=== PATIENT | female | born 1960 | race Caucasian/White ===

== ENCOUNTER 2019-04-29 10:04 | Emergency (ER) | payer MEDICARE, SELFPAY ==
[2019-04-29 10:05] VITALS: BP 123/69; PULSE 84; RESP 18; TEMP 37.7; O2SAT 98; BMI 29.0
--- NOTE | 2019-04-29 10:31 | ED.VISSUMM ---
- ER Visit Summary Date of Service: 04/29/19 Chief Complaint: Abscess History of Present Illness: The patient is a 58 F who presents with an abscess to her upper back that is been getting worse over the past 2 days. Patient describes the pain as throbbing and stabbing. Patient states pain is been constant. Patient states she had a pustule over that area and she accidentally scraped it which opened the wound. She states she has been able to drain some purulent drainage from the wound. Patient admits to increasing redness and swelling around the area. Patient admits to increasing pain over the area. Patient admits to a fever of 101 earlier today. Physical Examination: Vital signs are stable. Patient is afebrile here. Patient is in no acute distress. Skin is warm and dry. There is a tender indurated area over the right upper thoracic area. There is surrounding erythema. There is no fluctuance. There is no active discharge or drainage. There is an area that has been open and draining but is now covered with a scab. There is some mild warmth over this area. There is some tenderness and muscle spasm of the upper thoracic and lower cervical paraspinal muscles on the right. Heart was regular rate and rhythm. Lungs are clear and equal bilaterally. Radial nerves II through XII are intact. There are no focal motor or sensory deficits noted. Emergency Department Course and Treatment: Patient was given a dose of clindamycin here. The area was cleaned and anesthetized 1% plain lidocaine locally. The area was opened with a #11 blade scalpel using a cruciate incision. There is minimal amount of drainage noted. Wound was left open. Patient was given a prescription for clindamycin. Patient was instructed to follow-up with her primary care physician as scheduled. Patient understood and was agreeable with the plan. All questions were answered. Disposition: Discharge home Impression: Upper thoracic abscess This note was generated with [employer] dictation software. It may contain incorrect words, spelling, and punctuation that were not noted in review of the chart prior to signing ED Disposition - Plan for ED Patient: Disposition: Home or Assisted Living Diagnosis: Abscess Instructions: ABSCESS, Incision and Drainage Prescriptions: Clindamycin HCl [Cleocin] 300 mg PO Q6H #40 cap Prescription Printed Referrals: Lindsey Hauser MD [Primary Care Provider] - Keep Ezra appointment
[2019-04-29] MEDS: Clindamycin HCl 150 MG Capsule 300 MG PO (10:50)
[2019-04-29 12:41] VITALS: PULSE 85; RESP 16; O2SAT 97
== END 2019-04-29 12:42 | disposition home or self-care (01) ==
PROVIDERS: Emergency Provider Emergency Medicine; Family Provider Internal Medicine; PCP Internal Medicine
DX: L02.212 Cutaneous abscess of back [any part, except buttock and flank] (principal); R51 Headache; R53.1 Weakness; R11.0 Nausea; E11.9 Type 2 diabetes mellitus without complications; M45.9 Ankylosing spondylitis of unspecified sites in spine; K58.9 Irritable bowel syndrome, unspecified; F32.9 Major depressive disorder, single episode, unspecified; M79.7 Fibromyalgia; F41.9 Anxiety disorder, unspecified; Z79.82 Long term (current) use of aspirin; Z79.84 Long term (current) use of oral hypoglycemic drugs; Z79.899 Other long term (current) drug therapy
CPT/HCPCS: 10060; 99283

== ENCOUNTER 2019-10-14 13:31 | Observation (INO) | payer MEDICARE, SELFPAY ==
[2019-10-14 12:56] VITALS: BMI 29.1; BMI 29.2
[2019-10-14 12:59] VITALS: BP 112/59; PULSE 65; RESP 18; TEMP 37.1; O2SAT 96
[2019-10-14 13:55] LABS: Bedside Glucose 66 mg/dL (70-110)
[2019-10-14 13:55] LABS: Bedside Glucose 88 mg/dL (70-110)
[2019-10-14 14:11] LABS: Absolute Lymphocyte Count 1.44 X10^3/uL (0.83-4.51); Absolute Neutrophil Count 2.6 X10^3/uL (2.0-7.7); Basophil# 0.04 X10^3/uL; Basophil% 0.8 % (0-1); Eosinophil# 0.35 X10^3/uL; Eosinophils% 7.2 % (0-5); Hematocrit 37.4 % (37-47); Hemoglobin 12.3 g/dL (12.0-15.0); Lymphocyte # 1.44 X10^3/ul (4.0); Lymphocyte % 29.8 % (19-41); Mean Corp Hgb Conc 32.9 g/dL (32-36); Mean Corpuscular Hgb 28.1 pg (27.0-32.0); Mean Corpuscular Volume 85.4 fL (81-99); Mean Platelet Vol. 9.8 fl (6.2-12.0); Monocyte# 0.43 X10^3/uL; Monocyte% 8.9 % (0-10); NRBC Flagged by Analyzer 0 % (0-5); Neutrophil # 2.55 X10^3/uL (2.7-7.7); Neutrophil % 52.7 % (47-70); Platelet Count 254 K/mm3 (150-450); RBC Distribution Width CV 12.7 % (11.6-14.6); RBC Distribution Width SD 39.5 fl (35.1-43.9); Red Blood Count 4.38 M/mm3 (4.2-5.4); White Blood Count 4.8 K/mm3 (4.4-11.0)
[2019-10-14] MEDS: 0.9% Normal Saline 1,000 ML 125 ML IV (14:11)
[2019-10-14] MEDS: oxyCODONE 5 MG Tablet PO ×2 (14:13→20:29)
[2019-10-14 14:36] LABS: Creatinine, Serum 0.95 mg/dL (0.55-1.02); EST Glomerular Filtration Rate 65 mL/min (>60); Est Glom Filt Rate - Afr Amer 78 mL/min (>60); Estimated Creatinine Clearance 62.77 ml/min
--- NOTE | 2019-10-14 16:22 | PCM.RX.CS ---
Consult Pharmacy has been consulted to manage selected antiobiotic: Vancomycin Type of Consult: New start Labs: Creatinine 0.95 mg/dL (0.55-1.02) 10/14/19 13:50 Est GFR (MDRD) Af Amer 78 mL/min (>60) 10/14/19 13:50 Est GFR (MDRD) Non-Af 65 mL/min (>60) 10/14/19 13:50 Weight used for dosin.5 kg Estimated Creatinine Clearance: 72 ML/MIN Goal Trough: 10-15 mcg/mL Pharmacy Plan for Drug Dosing: Give initial dose of 1250mg (15mg/kg) IV x1, then continue with 1000mg IV q12h. Will order a trough to be drawn before the 4th total dose. Pharmacy Service will continue to monitor and adjust dosing as required. Follow-Up Labs: Trough Vancomycin Labs to be done on [date and time ordered]: 10/16/19 03:30
[2019-10-14 16:45] LABS: Bedside Glucose 118 mg/dL (70-110)
[2019-10-14] MEDS: Diclofenac 75 MG Tablet PO (17:30)
[2019-10-14] MEDS: metFORMIN HCl 500 MG Tablet PO (17:30)
[2019-10-14] MEDS: Gabapentin 300 MG Capsule PO (17:30)
--- NOTE | 2019-10-14 18:45 | PCM.HP.OB ---
- Problem List (1) Vulvar abscess Status: Acute History Date of Admission: 10/14/19 History of this : This is a 59 year-old who is admitted with a labial abscess. She was evaluated in the office 3 days ago for this labial abscess and an incision and drainage was performed and she was started on oral antibiotics. She sent in today to the office with a worsening abscess and pain. She states the swelling and pain have increased since starting the antibiotics. She denies any fevers, chills, nausea, vomiting, malaise. Medical History: Medical History (Last Updated 10/14/19 @ 18:[address] 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 Mary Lobato DO) History of hysterectomy Z90.710 Allergies Penicillins Allergy (Verified 04/29/19 10:07) Hives hydrocodone Adverse Reaction (Verified 04/29/19 10:07) Nausea Home Medications: Home Medications Aspirin 81 mg PO DAILY 08/10/16 Gabapentin [Neurontin] 300 mg PO TID 08/10/16 Omeprazole [Prilosec] 20 mg PO DAILY 08/10/16 Propranolol HCl [Inderal] 40 mg PO TID 08/10/16 metFORMIN HCl [Glucophage] 500 mg PO BID 08/10/16 Atorvastatin Calcium 10 mg PO DAILY 10/14/19 Cholecalciferol (Vitamin D3) [Vitamin D3] 5,000 unit PO DAILY 10/14/19 Clonazepam 2 mg PO BID 10/14/19 Diclofenac [Voltaren] 75 mg PO BIDCM 10/14/19 Insulin Human 70/30 [Novolog Mix 70-30 Flexpen Syrn] 12 units SUBCUT DAILY 10/14/19 Smz/Tmp Ds [Bactrim Ds] 1 tab PO BID 10/14/19 Venlafaxine XR [Effexor Xr] 150 mg PO BID 10/14/19 Smoking Status: Former smoker History Past Pregnancies: Past Pregnancies Delivery Date Name GA/ Weeks Outcome Route Wt Infant Sex Labor Length Anesthesia Delivery Location Provider FOB Review of Systems Constitutional: Denies: Chills, Fever Gastrointestinal: Denies: Nausea, Vomiting Genitourinary: Denies: Dysuria Gynecological: Denies: Vaginal bleeding, Vaginal discharge Physical Exam Vitals: Vital Signs Temp Pulse Resp BP Pulse Ox 98.7 F 65 18 112/59 L 96 10/14/19 12:59 10/14/19 12:59 10/14/19 12:59 10/14/19 12:59 10/14/19 12:59 General: Alert, No apparent distress HEENT: Atraumatic Abdomen: Soft, Non Tender, Non-Distended Extremities:: No edema Neurological: Neuro grossly intact [employer]: Vulvar lesions - Entire right labia majora is swollen. It is draining yellow purulent fluid. No erythema. No fluctuance. The entire right labia is firm to palpation. +Tenderness in right groin Assessment/Plan All Active Problems Vulvar abscess (Acute) This is a 59 year-old admitted with a labial abscess. She was seen in the office 3 days ago and had an incision and drainage performed, and was started on oral antibiotics. Labial abscess has continued to worsen. She is admitted for IV antibiotics. CBC with differential and blood cultures collected. Pain control. Will monitor for fevers. Will reassess in the morning.
--- NOTE | 2019-10-14 20:05 | NURSING ---
LATE ENTRY - 1844 - PT SITTING ON TOILET, FEELING URGE TO VOID, BUT CANNOT. PT CRYING, PAINFUL. BLADDER SCAN = >775ML. DR GOSS NOTIFIED & ORDER RECEIVED.
[2019-10-14 20:38] VITALS: BP 98/64; PULSE 61; RESP 18; TEMP 36.9; O2SAT 96
[2019-10-14] MEDS: clonazePAM 1 MG Tablet 2 MG PO (21:31)
[2019-10-14] MEDS: Venlafaxine XR 150 MG Capsule PO (21:31)
[2019-10-14] MEDS: Propranolol 40 MG Tablet PO (21:31)
[2019-10-14 22:06] LABS: Bedside Glucose 121 mg/dL (70-110)
[2019-10-15] MEDS: 0.9% Normal Saline 1,000 ML 125 ML IV ×2 (00:15→09:30)
[2019-10-15 02:35] VITALS: BP 102/56; PULSE 60; RESP 18; TEMP 36.8; O2SAT 94
[2019-10-15] MEDS: Vancomycin IV 1,000 MG/200 ML BAG 200 MG IV ×2 (04:56→15:44)
[2019-10-15] MEDS: Propranolol 40 MG Tablet PO ×2 (04:58→14:11)
[2019-10-15 06:54] LABS: Absolute Lymphocyte Count 1.58 X10^3/uL (0.83-4.51); Absolute Neutrophil Count 2.4 X10^3/uL (2.0-7.7); Basophil# 0.04 X10^3/uL; Basophil% 0.8 % (0-1); Eosinophil# 0.28 X10^3/uL; Eosinophils% 5.8 % (0-5); Hematocrit 31.6 % (37-47); Hemoglobin 10.2 g/dL (12.0-15.0); Lymphocyte # 1.58 X10^3/ul (4.0); Lymphocyte % 32.8 % (19-41); Mean Corp Hgb Conc 32.3 g/dL (32-36); Mean Corpuscular Hgb 27.6 pg (27.0-32.0); Mean Corpuscular Volume 85.6 fL (81-99); Mean Platelet Vol. 9.8 fl (6.2-12.0); Monocyte# 0.46 X10^3/uL; Monocyte% 9.5 % (0-10); NRBC Flagged by Analyzer 0 % (0-5); Neutrophil # 2.42 X10^3/uL (2.7-7.7); Neutrophil % 50.3 % (47-70); Platelet Count 200 K/mm3 (150-450); RBC Distribution Width CV 12.7 % (11.6-14.6); Red Blood Count 3.69 M/mm3 (4.2-5.4); White Blood Count 4.8 K/mm3 (4.4-11.0)
[2019-10-15] MEDS: Diclofenac 75 MG Tablet PO ×2 (08:56→17:19)
[2019-10-15] MEDS: Aspirin 81 MG TAB.CHEW PO (08:56)
[2019-10-15] MEDS: clonazePAM 1 MG Tablet 2 MG PO (08:57)
[2019-10-15] MEDS: metFORMIN HCl 500 MG Tablet PO ×2 (08:57→17:19)
[2019-10-15] MEDS: Pantoprazole Sodium 20 MG Tablet PO (08:57)
[2019-10-15] MEDS: Gabapentin 300 MG Capsule PO ×3 (08:57→17:19)
[2019-10-15] MEDS: Insulin Human 75/25 Kwickpen 12 UNIT SC (08:58)
[2019-10-15 09:02] VITALS: BP 96/54; PULSE 55; RESP 18; TEMP 36.6; O2SAT 98
[2019-10-15 09:26] LABS: Bedside Glucose 119 mg/dL (70-110)
[2019-10-15] MEDS: Venlafaxine XR 150 MG Capsule PO (11:23)
[2019-10-15] MEDS: Insulin Lispro 100 UNIT/ML INSULN.PEN SC (11:28)
[2019-10-15 11:41] LABS: Bedside Glucose 214 mg/dL (70-110)
--- NOTE | 2019-10-15 12:25 | PCM.PN.OB ---
Patient Problems: Active and Suspected Problems (Last Updated 10/14/19 @ 18:[address] Mary Lobato, DO) Vulvar abscess (Acute) Subjective: Patient doing well. Denies fevers or chills. She feels that her pain has significantly improved. She was unable to urinate last night due to the pain and a Mario catheter was placed. Mario catheter remains in place today. She has not ambulated yet today. Denies nausea or vomiting. - Physical Exam Vitals/I&O's: Vital Signs Temp Pulse Resp BP Pulse Ox 97.8 F 55 L 18 96/54 L 98 10/15/19 09:02 10/15/19 09:02 10/15/19 09:02 10/15/19 09:02 10/15/19 09:02 Oxygen Delivery Method Room Air Weight: 186 lb 3.2 oz Body Mass Index (BMI) 29.1 Intake and Output for Last 24 Hours 10/13/19 10/14/19 10/15/19 23:59 23:59 23:59 Intake Total 1715 / 1715 1200.00 / 1200.00 Output Total 500 / 2150 3250 / 3250 Balance 1215 / -435 -2050.00 / -2050.00 General: Alert, No apparent distress HEENT: Atraumatic Extremities: No edema Skin: - - Right labia majora is minimally indurated and swollen. No erythema or fluctuance. It is actively draining a minimal amount of yellow drainage. Tenderness to palpation has improved and is now minimal Psych/Mental Status: Normal Affect, Appropriate Laboratory Results 10/14/19 13:12: POC Glucose 66 L 10/14/19 13:49: POC Glucose 88 10/14/19 13:50: WBC 4.8, RBC 4.38, Hgb 12.3, Hct 37.4, MCV 85.4, MCH 28.1, MCHC 32.9, RDW Std Deviation 39.5, RDW Coeff of Clive 12.7, Plt Count 254, MPV 9.8, Immature Gran % (Auto) 0.600, Neut % (Auto) 52.7, Lymph % (Auto) 29.8, Garden % (Auto) 8.9, Eos % (Auto) 7.2 H, Baso % (Auto) 0.8, Absolute Neuts (auto) 2.6, Absolute Lymphs (auto) 1.44, Nucleated RBC % 0 10/14/19 13:50: Creatinine 0.95, Estim Creat Clear Calc 62.77, Est GFR (MDRD) Af Amer 78, Est GFR (MDRD) Non-Af 65 10/14/19 16:37: POC Glucose 118 H 10/14/19 21:35: POC Glucose 121 H 10/15/19 06:18: WBC 4.8, RBC 3.69 L, Hgb 10.2 L, Hct 31.6 L, MCV 85.6, MCH 27.6, MCHC 32.3, RDW Std Deviation 39.0, RDW Coeff of Clive 12.7, Plt Count 200, MPV 9.8, Immature Gran % (Auto) 0.800, Neut % (Auto) 50.3, Lymph % (Auto) 32.8, Garden % (Auto) 9.5, Eos % (Auto) 5.8 H, Baso % (Auto) 0.8, Absolute Neuts (auto) 2.4, Absolute Lymphs (auto) 1.58, Nucleated RBC % 0 10/15/19 07:31: POC Glucose 119 H 10/15/19 11:20: POC Glucose 214 H Current Medications Acetaminophen (Tylenol) 650 mg PO Q6H PRN PRN PRN Reason: FEVER Aspirin (Aspirin, Baby) 81 mg PO DAILY@0800 [facility] Last Admin: 10/15/19 08:56 Dose: 81 mg Documented by: Atorvastatin Calcium (Lipitor) 10 mg PO DAILY@2200 [facility] Cholecalciferol ([facility]itamin [facility] ([facility]mcg)) [facility] Admin: 10/15/19 11:22 Dose: 5,000 unit Documented by: Clonazepam (Klonopin) 2 mg PO BID [facility] Last Admin: 10/15/19 08:57 Dose: 2 mg Documented by: Dextrose (D50w Syringe) 0 gm IV X1 PRN; Protocol PRN Reason: Hypoglycemia D[facility]) [facility] Last Admin: 10/15/19 08:56 Dose: 75 mg Documented by: Gabapentin (Neurontin) 300 mg PO TIDCM [facility] Last Admin: 10/15/19 11:28 Dose: 300 mg Documented by: Glucagon () 1 mg IM .X1 PRN PRN Reason: Hypoglycemia Vancomycin IV Pharmacy to Dose (1 ea/ Sodium Chloride) 500 mls @ 250 mls/hr IV X1 PRN; Protocol PRN Reason: Rx to Dose Sodium Chloride () 1,000 mls @ 125 mls/hr IV .Q8H [facility] Last Admin: 10/15/19 09:30 Dose: 125 mls/hr Documented by: Vancomycin HCl (Vancomycin) 1,000 mg in 200 mls @ 200 mls/hr IV Q12H [facility] Last Infusion: 10/15/19 05:56 Dose: Infused Documented by: Insulin Human Lispro (Humalog Kwikpen ([facility])) 0 unit SC ACHS [facility]; Protocol Last Admin: 10/15/19 11:28 Dose: 1 units Documented by: Insulin Lispro Protam/Lispro Human (Humalog Mix 75-25 Kwikpen ([facility])) 12 unit SC DAILY@0800 [facility] Last Admin: 10/15/19 08:58 Dose: 12 units Documented by: Met[facility]) [facility] Last Admin: 10/15/19 08:57 Dose: 500 mg Documented by: Oxycodone HCl (Oxyir) 5 - 10 mg PO Q6H PRN PRN PRN Reason: Pain Score 1-10/10 Last Admin: 10/14/19 20:29 Dose: 10 mg Documented by: Pantoprazole Sodium (Protonix) 20 mg PO DAILY [facility] Last Admin: 10/15/19 08:57 Dose: 20 mg Documented by: Propranolol HCl (Inderal) 40 mg PO TID [facility] Last Admin: 10/15/19 04:58 Dose: 40 mg Documented by: Sodium Chloride () 10 - 40 ml IV UD PRN PRN Reason: SALINE FLUSH Venlafaxine HCl (Effexor Xr) 150 mg PO BID [facility] Last Admin: 10/15/19 11:23 Dose: 150 mg Documented by: Medical Necessity - Tobacco Use Smoking Status: Former smoker Assessment/Plan All Active Problems (Last Updated 10/14/19 @ 18:[address] Mary Lobato, DO) Vulvar abscess (Acute) Patient is hospital day 1 admitted with a labial abscess. She remains afebrile. White blood cell count is within normal limits. Blood cultures are pending. Hemodynamically stable. A Mario catheter was placed yesterday as patient was unable to void secondary to pain. This morning the patient reports her pain is significantly improved. The abscess continues to actively drain. There is no erythema or fluctuance on exam. To remove Mario and ensure patient can spontaneously void without difficulty. Patient is okay to go home after 24 hours of vancomycin if she remains afebrile and is able to void. To complete a course of Bactrim at home. To a follow-up in the office this week. Reviewed discharge instructions with patient.
--- NOTE | 2019-10-15 12:29 | DCINST_ITS ---
- Discharge Diagnoses Current Active Problems: Current Active and Chronic Problems (Last Updated 10/14/19 @ 18:[address] Mary Lobato, DO) Vulvar abscess (Acute) You will use the following diet at home:: Calorie/Carbohydrate Controlled (specify 1200, 1400, etc) Your food should be the consistency of: Regular Discharge Activity: Return to Normal Activity May resume sexual activity in: 2 weeks Ice area for (Minutes): 15 Weight Bearing Status: Full weight bearing Lifting Restrictions: None Call your doctor if your incision/area has: Sudden Increased Bleeding, Increased Pain/ Swelling, Increased Redness Call your doctor if you observe: Fever of 101 or Higher, Inability to urinate, Inability to have a bowel movement, Using more than one pad per hour, Dizziness, Fainting spells, Uncontrolled pain Cleanse incision/area with: Soap & Water Additional Instructions: To ice the area as needed for 15 min at a time for pain relief. Call with temp greater than 100.4, fevers, chills, worsened pain. To continue and complete your course of oral antibiotics that you were given. Allergies/Adverse Reactions: Allergies Penicillins Allergy (Verified 04/29/19 10:07) Hives hydrocodone Adverse Reaction (Verified 04/29/19 10:07) Nausea Medications to take at Discharge Aspirin 81 mg PO DAILY 08/10/16 Gabapentin [Neurontin] 300 mg PO TID 08/10/16 Omeprazole [Prilosec] 20 mg PO DAILY 08/10/16 Propranolol HCl [Inderal] 40 mg PO TID 08/10/16 metFORMIN HCl [Glucophage] 500 mg PO BID 08/10/16 Atorvastatin Calcium 10 mg PO DAILY 10/14/19 Cholecalciferol (Vitamin D3) [Vitamin D3] 5,000 unit PO DAILY 10/14/19 Clonazepam 2 mg PO BID 10/14/19 Diclofenac [Voltaren] 75 mg PO BIDCM 10/14/19 Insulin Human 70/30 [Novolog Mix 70-30 Flexpen Syrn] 12 units SUBCUT DAILY 10/14/19 Smz/Tmp Ds [Bactrim Ds] 1 tab PO BID 10/14/19 Venlafaxine XR [Effexor Xr] 150 mg PO BID 10/14/19 Primary Care Physician: Lindsey Hauser MD [Primary Care Provider] - Test Results: Test results from this visit will be discussed in further detail at your follow- up appointment, if applicable. When: Keep your scheduled follow up in 1 week.
[2019-10-15 14:07] VITALS: BP 102/63; PULSE 68; RESP 18; TEMP 37.1; O2SAT 95
[2019-10-15 16:06] LABS: Bedside Glucose 117 mg/dL (70-110)
[2019-10-15 17:18] VITALS: TEMP 36.9
== END 2019-10-15 12:32 | disposition home or self-care (01) ==
PROVIDERS: Admitting Provider Obstetrics & Gynecology; PCP Internal Medicine; Referring Provider Obstetrics & Gynecology; Visit Provider Obstetrics & Gynecology
DX: N76.4 Abscess of vulva (principal); J44.9 Chronic obstructive pulmonary disease, unspecified; F31.9 Bipolar disorder, unspecified; E11.9 Type 2 diabetes mellitus without complications; F10.11 Alcohol abuse, in remission; Z79.899 Other long term (current) drug therapy; Z87.891 Personal history of nicotine dependence; Z79.82 Long term (current) use of aspirin; Z79.4 Long term (current) use of insulin
CPT/HCPCS: 36415; 82565; 82962; 85025; 87040; 96361; 96365; 96366; 99218; J7030; J7050; G0378; G0379

== ENCOUNTER 2022-07-14 19:23 | Emergency (ER) | payer MEDICARE, SELFPAY ==
[2022-07-14 19:24] VITALS: BP 141/69; PULSE 103; RESP 18; TEMP 36.9; O2SAT 98; BMI 26.8
--- NOTE | 2022-07-14 21:36 | EX.ED.VIS.UR ---
HPI HPI - URI History of Present Illness Chief Complaint: Shortness of Breath Narrative Narrative: 62-year-old female presenting with cough, rhinorrhea, subjective fever since Thursday. She states now she feels like she has bronchitis. Patient states that she does have nebulizer solution but her nebulizer machine is in her storage unit 2 hours away because she is here caring for her mom. Patient reports he has a history of COPD and chronic bronchitis. He does not have any nausea, vomiting. No abdominal pain or chest pain. [facility] Medical History Abnormal Pap smear of cervix Ankylosing spondylitis Bipolar disorder COPD (chronic obstructive pulmonary disease) Depression Diabetes History of alcohol abuse History of tobacco abuse HPV (human papilloma virus) infection Mitral valve disorder Home Medications aspirin 81 mg chewable tablet 81 mg PO DAILY 08/10/16 [History Last Taken Unknown] gabapentin 300 mg capsule (Neurontin) 300 mg PO TID NEUROPATHY 08/10/16 [History Last Taken 10/14/19] metformin 1,000 mg tablet 500 mg PO BID DM 08/10/16 [History Last Taken 10/14/19] omeprazole 20 mg capsule,delayed release 20 mg PO DAILY 08/10/16 [History Last Taken 10/14/19] propranolol 40 mg tablet 40 mg PO TID HEART 08/10/16 [History Last Taken 10/14/19] Cholecalciferol (Vitamin D3) [Vitamin D3] 5,000 unit PO DAILY SUPPLEMENT 10/14/19 [History Last Taken 10/14/19] atorvastatin 10 mg tablet 10 mg PO DAILY CHOLESTEROL 10/14/19 [History Last Taken 10/14/19] clonazepam 2 mg tablet 2 mg PO BID 10/14/19 [History Last Taken 10/14/19] diclofenac sodium 75 mg tablet,delayed release 75 mg PO BIDCM PAIN 10/14/19 [History Last Taken 10/14/19] insulin aspar prot-insulin aspart 100 unit/mL (70-30) subcutaneous pen 12 units subcut DAILY DM 10/14/19 [History Last Taken 10/14/19] sulfamethoxazole 800 mg-trimethoprim 160 mg tablet 1 tab PO BID ANTIBIOTIC 10/14/19 [History Last Taken 10/14/19] venlafaxine 150 mg capsule,extended release 24 hr 150 mg PO BID DEPRESSION 10/14/19 [History Last Taken 10/14/19] prednisone 50 mg tablet 50 mg PO DAILY #5 tabs 07/14/22 [Rx Last Taken Unknown] Allergy/AdvReac Type Severity Reaction Status Date / Time Penicillins Allergy Hives Verified 07/14/22 19:29 hydrocodone AdvReac Nausea Verified 07/14/22 19:29 Surgical History History of hysterectomy Social History Smoking Status: Former smoker EXAM Physical Exam Const Vital Signs: 07/14/22 19:24 07/14/22 20:59 07/14/22 21:50 Temperature 98.5 F Temperature Source Temporal Pulse Rate 103 H 72 Respiratory Rate 18 12 Respiratory Effort Short of Breath Blood Pressure 141/69 H Blood Pressure Mean 93 Pulse Ox 98 Oxygen Delivery Method Room Air Positive well nourished General Appearance ED: NAD; Negative for pallor HEENT Reports moist mucous membranes HEENT Narrative: Rhinorrhea nasal congestion. normocephalic and atraumatic Eyes PERRL and EOMs intact bilaterally Neck no lymphadenopathy and supple Resp normal respiratory effort Auscultation: wheezes expiratory wheezes Cardio Rate: regular rate Rhythm: regular rhythm GI non-tender Neuro oriented x3 and CN's II-XII intact bilaterally Sensorium / Orientation: alert Psych mental status grossly normal Skin General Skin Exam: Negative for jaundice or pallor MDM MDM MDM Narrative Medical decision making narrative: Patient presenting with viral symptoms in addition a COPD flare. She is given oral prednisone, breathing treatments. I will obtain a chest x-ray as well. Patient is well-appearing. Her vital signs are stable she is afebrile. She not requiring any oxygen. She is not any respiratory distress. Chest x-ray interpreted by myself shows no acute cardiopulmonary process and the radiologist interprets this and agrees. Patient feeling improved after treatments. Patient was given 2 puffs of an albuterol inhaler and this will be sent home with her. She is given a prescription for prednisone for home. She did test positive for influenza A. I recommended to her that she drink plenty of fluids take her medications as prescribed. She is to follow-up with her PCP to ensure resolution. Impression: 1. COPD exacerbation 2. Influenza A Lab Data Attestation: I reviewed the patient's lab results. Radiography Diagnostic Testing: Clinical Impression(s) from Imaging Studies Chest X-Ray 07/14/22 21:43 IMPRESSION: No radiographic evidence of acute cardiopulmonary disease. Electronically Signed: Donaldo Gutierrez MD at 21:58 EST , Discharge Plan Triage Chief Complaint: Shortness of Breath ED Provider: Shaji Vazquez Dx/Rx/DC Orders Instructions: ED COPD Flare, ED Influenza (Adult) Prescriptions: New prednisone 50 mg tablet 50 mg PO DAILY Qty: 5 0RF No Action propranolol 40 MG tablet 40 mg PO TID metformin 1,000 MG tablet 500 mg PO BID gabapentin [Neurontin] 300 MG capsule 300 mg PO TID omeprazole 20 MG capsule 20 mg PO DAILY aspirin 81 MG tablet,chewable 81 mg PO DAILY clonazepam 2 MG tablet 2 mg PO BID atorvastatin 10 MG tablet 10 mg PO DAILY Cholecalciferol (Vitamin D3) [Vitamin D3] 5,000 UNIT capsule 5,000 unit PO DAILY diclofenac sodium 75 MG tablet 75 mg PO BIDCM insulin asp prt-insulin aspart 100 UNITS/ML insulin pen 12 units subcut DAILY venlafaxine 150 MG capsule 150 mg PO BID sulfamethoxazole-trimethoprim 1 TABLET tablet 1 tab PO BID Primary Care Provider: Lindsey Hauser Referrals: Lindsey Hauser MD [Primary Care Provider] - Disposition Disposition: Home, Self Care
--- NOTE | 2022-07-14 21:43 | RAD_ITS ---
INDICATION: Cough, congestion, shortness of breath EXAMINATION/TECHNIQUE: X-RAY - XR Chest 1 View COMPARISON: 04/11/2015 FINDINGS: LINES/DEVICES: None. LUNGS: No consolidation, edema or effusion. No pneumothorax. Mild bilateral midlung scarring. MEDIASTINUM AND CARDIOVASCULAR STRUCTURES: Cardiac silhouette not enlarged. Central airways and mediastinal contour are unremarkable. BONES AND SOFT TISSUES: Unremarkable. RAD/Chest 1 View (Portable) IMPRESSION: No radiographic evidence of acute cardiopulmonary disease. Electronically Signed: Donaldo Gutierrez MD at 21:58 EST ,
[2022-07-14 21:50] VITALS: PULSE 72; RESP 12
[2022-07-14] MEDS: Albuterol 2.5 MG/3 ML VIAL.NEB. INHALATION (21:50)
[2022-07-14] MEDS: Ipratropium/Albuterol Sulfate 3 ML AMPUL.NEB INHALATION (21:50)
[2022-07-14] MEDS: predniSONE 20 MG Tablet 60 MG PO (22:01)
[2022-07-15] MEDS: Albuterol Sulfate 8 gm Inhaler (60 puffs) 2 PUFF INHALATION
== END 2022-07-15 | disposition home or self-care (01) ==
PROVIDERS: Emergency Provider Student in an Organized Health Care Education/Training Program; PCP Internal Medicine; Visit Provider Student in an Organized Health Care Education/Training Program
DX: J44.1 Chronic obstructive pulmonary disease with (acute) exacerbation (principal); J44.0 Chronic obstructive pulmonary disease with (acute) lower respiratory infection; E11.9 Type 2 diabetes mellitus without complications; Z87.891 Personal history of nicotine dependence; J10.1 Influenza due to other identified influenza virus with other respiratory manifestations
CPT/HCPCS: 99281; 71045; 87428; 94640; 99282

== ENCOUNTER 2023-09-25 15:47 | Emergency (ER) | payer MEDICARE, MEDICAID, SELFPAY ==
[2023-09-25 15:49] VITALS: BP 109/65; PULSE 67; RESP 14; TEMP 35.9; O2SAT 99; BMI 28.1
[2023-09-25 16:46] LABS: Mucous, Urine 0 SEEN /hpf (<or=2+)
[2023-09-25 16:49] LABS: Absolute Lymphocyte Count 1.22 X10^3/uL (0.83-4.51); Absolute Neutrophil Count 5.6 X10^3/uL (2.0-7.7); Basophil# 0.08 X10^3/uL; Color, Urine Yellow (Yellow); Eosinophil# 0.45 X10^3/uL; Eosinophils% 5.7 % (0-5); Glucose, Dipstick Normal (Normal); Hematocrit 42.4 % (37-47); Hemoglobin 13.4 g/dL (12.0-15.0); Ketone-Dipstick 5 mg/dl (Negative); Leukocyte Esterase-Dipstick 500 /ul (Negative); Lymphocyte # 1.22 X10^3/ul (0.83-4.51); Lymphocyte % 15.3 % (19-41); Mean Corp Hgb Conc 31.6 g/dL (32-36); Mean Corpuscular Volume 82.3 fL (81-99); Monocyte# 0.59 X10^3/uL; Monocyte% 7.4 % (0-10); NRBC Flagged by Analyzer 0 % (0-5); Neutrophil # 5.57 X10^3/uL (2.7-7.7); Neutrophil % 70.1 % (47-70); Nitrite-Dipstick Negative (Negative); Occult Blood-Urine 150 /ul (Negative); Platelet Count 302 K/mm3 (150-450); Protein-Dipstick 30 mg/dl (Negative); RBC Distribution Width CV 13.6 % (11.6-14.6); RBC Distribution Width SD 40.5 fl (35.1-43.9); Red Blood Count 5.15 M/mm3 (4.2-5.4); Urine Clarity Sl. Cloudy (Clear); Urine Urobilinogen 1 mg/dl (Normal)
[2023-09-25 16:51] LABS: Urine Bilirubin Dipstick 3 mg/dL (Negative)
[2023-09-25 16:55] LABS: White Blood Cells 25-50 SEEN /hpf (0-5)
[2023-09-25 16:56] LABS: Bacteria RARE /hpf (None Seen); Red Blood Cells-Urine 0-5 SEEN /hpf (0-5); Squamous Epithelial Cells - UA 0-5 SEEN /hpf (5-10)
[2023-09-25 17:10] LABS: AST(SGOT) 14 U/L (15-37); Alanine Aminotransfer ALT/SGPT 19 U/L (13-56); Alkaline Phosphatase 148 U/L (45-117); Anion Gap 6 (5-15); BUN 13 mg/dL (7-18); BUN/Creat Ratio 13.4 RATIO (10-20); Calcium,Total 9.4 mg/dL (8.5-10.1); Chloride 103 mmol/L (98-107); Creatinine, Serum 0.97 mg/dL (0.55-1.02); EST Glomerular Filtration Rate 62 mL/min (>60); Est Glom Filt Rate - Afr Amer 75 mL/min (>60); Estimated Creatinine Clearance 68.26 ml/min; Glucose 206 mg/dL (74-106); Potassium 5.3 mmol/L (3.5-5.1); Sodium Level 134 mmol/L (136-145)
[2023-09-25 17:48] VITALS: BP 135/89; PULSE 88; RESP 16; O2SAT 100
--- NOTE | 2023-09-25 17:55 | CT_ITS ---
STUDY: CT ABDOMEN AND PELVIS WITHOUT CONTRAST REASON FOR EXAM: Female, 63 years old. right flank pain RADIATION DOSAGE (If Supplied By Facility): CTDIvol = ( 11.80 ) mGy, DLP = ( 604.49 ) mGycm TECHNIQUE: Transaxial images were obtained from the dome of the diaphragm to the symphysis pubis without oral contrast, and without intravenous contrast. Sagittal and coronal images were reconstructed. Individualized dose optimization techniques were used for this CT. COMPARISON: 08/10/2016 FINDINGS: The visualized lung bases are unremarkable. The visualized portions of the heart are within normal limits. Normal liver. There is non-visualization of the gallbladder, which may be secondary to either contraction or a prior cholecystectomy. Normal spleen. Normal pancreas. Normal bilateral adrenal glands. Normal right kidney. Normal left kidney. Normal visualized stomach. Normal small intestine. Normal colon. There is non-visualization of the appendix. Normal abdominal aorta. Normal inferior vena cava. Normal retroperitoneum. Normal urinary bladder. Normal abdominal wall. Mild levoscoliosis lumbar spine with degenerative disc disease. CT/Abdomen/Pelvis without Cont IMPRESSION: Normal unenhanced CT of the abdomen and pelvis. Electronically Signed: Hank Osborne MD at 19:11 EST ,
--- OUTSIDE RECORDS SUMMARY | 2023-09-25 18:26 | XMS RPT_ITS | CCD ---
Author Name Unknown Address [id number] [place] [address] Organization [facility] Care Team Providers Care Farm Helper Name Role Phone DOCTOR, NO F. Unavailable Unavailable JERRY BREWSTER Unavailable Unavailab yanet DOCTOR, NO F. Unavailable Unavailable SHAMIKA CRUZ Unavailable Unavail able WARREN KAY Unavailable Unavailable WARREN KAY Unavailable Unavailable BIXEL, VANCE L Unavailable Unavailable GOODARZI, DORI J Unavailable Unavailable SHIVANI, CATRACHITA R Unavailable Unavailable BIXEL, VANCE L Unavailable Unavailable GOODARZI, DORI J Unavailable Unavailable SHIVANI, CATRACHITA R Unavailable Unavailable BIXEL, VANCE L Unavailable Unavailable BIXEL, VANCE L Unavailable Unavailable GOODARZI, DORI J Unavailable Unavailable SHIVANI, CATRACHITA R Unavailable Unavailable BIXEL, VANCE L Unavailable Unavailable SHIVANI, CATRACHITA R Unavailable Unavailable SHIVANI, CATRACHITA R Unavailable Unavailable CANNONE, TYLER B Unavailable Unavailable Physician, PCP Unknown Unavailable Unavailab le RAY, TYLER B Unavailable Unavailable Physician, No PCP Unavailable Unavailable NICOLAS DILLARD Unavailable Unavailable Physician, PCP Unknown Unavailable UnavailGianfranco Pineda MD Primary Care Provider Gianfranco Singh MD Primary Care Provider Gianfranco Singh MD Primary Care Provider MORALES CUNNINGHAM Attending Unavailable LAITH GALARZA Referring Unavailable NELLAMPAS, GIANFRANCO D Primary Care Unavailable LAITH GALARZA Attending Unavailable FRANCISCO, GIANFRANCO Griffin Primary Care Unavailable TALAMPAS, GIANFRANCO D Primary Care Unavailable NELLAMPHARLEY, GIANFRANCO D Primary Care Unavailable SAUL OMER Referring Unavailable SAUL OMER Attending Unavailable FRANCISCO, GIANFRANCO D Primary Care Unavailable TALAMPAS, GIANFRANCO D Primary Care Unavailable LAITH GALARZA Referring Unavailable TALAMPAS, GIANFRANCO D Primary Care Unavailable ZAINAB RAMIREZ Attending Unavailable TALAMPHARLEY, GIANFRANCO D Attending Unavailable TALAMPAS, GIANFRANCO D Primary Care Unavailable SARAN JIMENEZ Attending Unavailable TALAMPAS, GIANFRANCO D Primary Care Unavailable TALAMPAS, GIANFRANCO D Attending Unavailable TALAMPAS, GIANFRANCO D Primary Care Unavailable Allergies Allergy Classification Reported Allergen(s) Allergy Type Date of Onset Reaction(s) Facility (1 source) acetaminophen Drug Allergy 8 [facility] (4 sources) HYDROcodone; Translations: [HYDROCODONE] Drug Allergy 4 [facility] (4 sources) Penicillins; Translations: [PENICILLINS] Drug allergy (disorder) 3 [facility] (20 sources) HYDROcodone Drug Allergy 4 GI Upset [facility] (2 sources) Penicillins Propensity to adverse reactions 3 [facility] (20 sources) Penicillins Propensity to adverse reactions 3 Hives, GI Upset [facility] Medications Current Medications Medication Drug Class(es) Dates Sig (Normalized) Sig (Original) azithromycin 250 mg oral tablet (3 sources) Macrolide Antimicrobial Start: 02-10-2022 End: 02-15-2022 take 2 tablets by mouth once daily, then take 1 tablet by mouth once daily azithromycin (ZITHROMAX) 250 mg tablet Indications: COPD with exacerbation (HCC) Take 2 tablets by mouth once daily for 1 day, THEN 1 tablet once daily for 4 days. 6 tablet 0 02/10/2022 02/15/2022 Active Completed/Discontinued Medications Medication Drug Class(es) Dates Sig (Normalized) Sig (Original) [id number] 200 actuat albuterol 0.09 mg/actuat metered dose inhaler (20 sources) beta2-Adrenergic Agonist Start: 06-29-2023 take 2 puff(s) by inhalation every four hours as needed for wheezing albuterol HFA (PROVENTIL HFA, VENTOLIN HFA) 90 mcg/actuation inhaler Inhale 2 Puffs as instructed every 4 hours as needed for wheezing/shortnes s of breath. 8 g 0 06/29/2023 Active Problems Active Problems Problem Classification Problem Date Documented Da te Episodic/Chronic Abdominal pain (1 source) Flank pain; Translations: [Unspecified abdominal pain] Episodic Adjustment disorders (1 source) Adjustment disorder with depressed mood; Translations: [Grief] Onset: 09-15-2023 Chronic Alcohol-related disorders (20 sources) H/O: alcoholism; Translations: [Alcohol dependence, in remission] Onset: 08-07-2005 04-30-2019 Chronic Anxiety disorders (20 sources) Chronic post-traumatic stress disorder; Translations: [Post-traumatic stress disorder, chronic] Onset: 05-07-2015 05-07-2015 Chronic Biliary tract disease (20 sources) Acquired dilation of bile duct; Translations: [Other specified diseases of biliary tract] Onset: 08-29-2016 08-29-2016 Chronic Blindness and vision defects (3 sources) Bilateral myopia of eyes; Translations: [Myopia, bilateral] Episodic Cataract (4 sources) Bilateral cataracts; Translations: [Unspecified cataract] Chronic Chronic obstructive pulmonary disease and bronchiectasis (20 sources) Chronic obstructive lung disease; Translations: [Chronic obstructive pulmonary disease, unspecified] Onset: 08-27-2023 08-16-2009 Chronic Chronic obstructive pulmonary disease and bronchiectasis (1 source) Bronchitis; Translations: [Bronchitis, not specified as acute or chronic] Episodic Diabetes mellitus with complications (20 sources) Type 2 diabetes mellitus; Translations: [Type 2 diabetes mellitus with other specified complication] Onset: 09-27-2012 04-28-2017 Chronic Diabetes mellitus without complication (20 sources) Diabetes mellitus; Translations: [Type 2 diabetes mellitus without complications] Onset: 09-27-2012 09-27-2012 Chronic Disorders of lipid metabolism (1 source) Hyperlipidemia, unspecified; Translations: [Dyslipidemia associated with type 2 diabetes mellitus (HCC) (HCC)] Onset: 04-28-2017 Chronic Genitourinary symptoms and ill-defined conditions (2 sources) Genuine stress incontinence; Translations: [Stress incontinence (female) (male)] Onset: 10-07-2022 Chronic Genitourinary symptoms and ill-defined conditions (2 sources) Jm hematuria; Translations: [Gross hematuria] Episodic Glaucoma (20 sources) Preglaucoma, unspecified, bilateral; Translations: [Preglaucoma, unspecified] Onset: 08-10-2022 Chronic Heart valve disorders (20 sources) Rheumatic mitral valve disease, unspecified; Translations: [Mitral valve disorders] Onset: 08-07-2005 08-07-2005 Chronic Immunizations and screening for infectious disease (5 sources) Requires varicella vaccination; Translations: [Encounter for immunization] Episodic Inflammation; infection of eye (except that caused by tuberculosis or sexually transmitteddisease) (2 sources) Bilateral punctate keratitis of eyes; Translations: [Punctate keratitis, bilateral] Chronic Joint disorders and dislocations; trauma-related (20 sources) Chondromalacia of patella; Translations: [Chondromalacia patellae, unspecified knee] Onset: 10-06-2008 10-06-2008 Chronic Menopausal disorders (1 source) Postmenopausal bleeding; Translations: [Postmenopausal bleeding] Onset: 12-03-2017 Chronic Mood disorders (20 sources) Depressive disorder; Translations: [Depressive disorder] Onset: 08-07-2005 04-24-2015 Chronic Nutritional deficiencies (20 sources) Vitamin D deficiency; Translations: [Vitamin D deficiency, unspecified] Onset: 03-01-2018 03-01-2018 Chronic Osteoarthritis (2 sources) Unilateral primary osteoarthritis, right knee; Translations: [UNI PRIM OSTEOARTHRITIS] Onset: 05-05-2018 Chronic Other gastrointestinal disorders (20 sources) Irritable bowel syndrome; Translations: [Irritable bowel syndrome without diarrhea] Onset: 08-07-2005 05-24-2010 Chronic Other injuries and conditions due to external causes (1 source) Open wound; Translations: [Other injury of unspecified body region, initial encounter] Episodic Other nervous system disorders (1 source) Chronic pain syndrome; Translations: [Chronic pain syndrome] Onset: 09-15-2023 Chronic Other nervous system disorders (1 source) Other acute postprocedural pain; Translations: [Other acute postprocedural pain] Onset: 12-03-2017 Episodic Other nervous system disorders (1 source) H/O: glaucoma; Translations: [Personal history of other diseases of the nervous system and sense organs] Episodic Other non-traumatic joint disorders (2 sources) Ankylosis, right knee; Translations: [ANKYLOSIS RIGHT KNEE] Onset: 06-28-2018 Chronic Other skin disorders (1 source) Hidradenitis suppurativa; Translations: [Hidradenitis suppurativa] 05-18-2023 Episodic Prolapse of female genital organs (2 sources) Midline cystocele; Translations: [Cystocele, midline] Onset: 10-07-2022 Chronic Residual codes; unclassified (2 sources) Patient encounter status; Translations: [Other specified personal risk factors, not elsewhere classified] Episodic Residual codes; unclassified (1 source) History of abdominal hysterectomy; Translations: [Acquired absence of both cervix and uterus] Episodic Rheumatoid arthritis and related disease (20 sources) Ankylosing spondylitis; Translations: [Ankylosing spondylitis of unspecified sites in spine] Onset: 01-23-2015 01-23-2015 Chronic Spondylosis; intervertebral disc disorders; other back problems (20 sources) Displacement of lumbar intervertebral disc without myelopathy; Translations: [Other intervertebral disc displacement, lumbar region] Onset: 10-07-2012 10-07-2012 Chronic Unclassified (1 source) Pain, unspecified; Translations: [Pain, unspecified] Onset: 01-22-2017 Unclassified (1 source) Follow-up / 145() Onset: 01-27-2018 Unclassified (1 source) Other acute postprocedural pain / G89.18(ICD-10) Onset: 12-03-2017 Unclassified (1 source) Atypical squamous cells of undetermined significance on cytologic smear of cervix (ASC-US) / R87.610(ICD-10) Onset: 11-18-2017 Unclassified (1 source) Postmenopausal bleeding / N95.0(ICD-10) Onset: 11-18-2017 Unclassified (1 source) New Patient / [id number]() Onset: 11-18-2017 Unclassified (1 source) Unknown / UNK(Unknown) Onset: 06-25-2018 Viral infection (2 sources) Viral disease; Translations: [Viral infection, unspecified] Episodic Past or Other Problems Problem Classification Problem Date Documented Date Episodic/Chronic Cancer of cervix (3 sources) Atypical squamous cells of undetermined significance on cytologic smear of cervix (ASC-US); 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] Onset: 12-03-2017 Episodic Intracranial injury (20 sources) Traumatic brain injury; Translations: [Unspecified intracranial injury with loss of consciousness of unspecified duration, initial encounter] Onset: 05-07-2015 05-07-2015 Episodic Malaise and fatigue (20 sources) Malaise and fatigue; Translations: [Other malaise] Onset: 08-07-2005 06-13-2016 Episodic Other aftercare (1 source) Encounter for therapeutic drug level monitoring; Translations: [Encounter for therapeutic drug monitoring] Onset: 05-18-2023 Episodic Other aftercare (1 source) residential (current) use of insulin; Translations: [Type 2 diabetes mellitus without complication, with long-term current use of insulin (HCC)] Onset: 09-27-2012 Episodic Other screening for suspected conditions (not mental disorders or infectious disease) (9 sources) Cancer cervix screening status; Translations: [Encounter for screening for malignant neoplasm of cervix] Onset: 10-07-2022 Episodic Residual codes; unclassified (1 source) Other specified personal risk factors, not elsewhere classified; Translations: [Encounter for gynecologic examination for high-risk patient covered by Medicare] Onset: 10-07-2022 Episodic Residual codes; unclassified (1 source) Acquired absence of both cervix and uterus; Translations: [History of abdominal hysterectomy] Onset: 10-07-2022 Episodic Spondylosis; intervertebral disc disorders; other back problems (20 sources) Sciatica; Translations: [Sciatica, unspecified side] Onset: 10-07-2012 10-07-2012 Episodic Unclassified (1 source) Follow-up; Translations: [Follow-up] Onset: 01-27-2018 Unclassified (1 source) New Patient; Translations: [New Patient] Onset: 11-18-2017 Unclassified (1 source) [id number] Onset: 2018 Results Test Name Value Interpretation Reference Range Facil ity Vital Signs Date Time Vital Sign Value Performing Clinician Andrzeji zachery 06-29-2023 14:56-0500 Body temperature 98.91 [degF] Shamika Martin APRN.CNP Work Phone: [facility] 06-29-2023 14:56-0500 Body weight 83.37 kg Shamika Martin APRN.CNP Work Phone: [facility] 06-29-2023 14:56-0500 Diastolic blood pressure 78 mm[Hg] Shamika Martin APRN.CNP Work Phone: [facility] 06-29-2023 14:56-0500 Heart rate 75 /min Shamika Martin APRN.CNP Work Phone: [facility] 06-29-2023 14:56-0500 Respiratory rate 21 /min Shamika Martin HOT STONE SETTER.STONECUTTER ASSISTANT Work Phone: [facility] 06-29-2023 14:56-0500 SaO2% (BldA) [Mass fraction] 99 % Shamika Martin HOT STONE SETTER.STONECUTTER ASSISTANT Work Phone: [facility] 06-29-2023 14:56-0500 Systolic blood pressure 118 mm[Hg] Shamika Martin HOT STONE SETTER.STONECUTTER ASSISTANT Work Phone: [facility] 05-18-2023 14:05-0400 Body weight 81.69 kg Saul Shannen HOT STONE SETTER.STONECUTTER ASSISTANT Work Phone: [facility] 05-18-2023 14:05-0400 Diastolic blood pressure 80 mm[Hg] Saul Shannen HOT STONE SETTER.STONECUTTER ASSISTANT Work Phone: [facility] 05-18-2023 14:05-0400 Heart rate 76 /min Saul Shannen HOT STONE SETTER.STONECUTTER ASSISTANT Work Phone: [facility] 05-18-2023 14:05-0400 Respiratory rate 20 /min Saul Shannen HOT STONE SETTER.STONECUTTER ASSISTANT Work Phone: [facility] 05-18-2023 14:05-0400 Systolic blood pressure 114 mm[Hg] Saul Shannen HOT STONE SETTER.STONECUTTER ASSISTANT Work Phone: [facility] 10-07-2022 14:05-0400 Body height 166.4 cm Zainab Ramirez HOT STONE SETTER.STONECUTTER ASSISTANT Work Phone: [facility] 10-07-2022 14:05-0400 Body weight 81.19 kg Zainab Walkerie HOT STONE SETTER.STONECUTTER ASSISTANT Work Phone: [facility] 10-07-2022 14:05-0400 Diastolic blood pressure 60 mm[Hg] Zainab Salcidohrie HOT STONE SETTER.STONECUTTER ASSISTANT Work Phone: [facility] 10-07-2022 14:05-0400 Systolic blood pressure 102 mm[Hg] Zainab Walkerie HOT STONE SETTER.STONECUTTER ASSISTANT Work Phone: [facility] 09-24-2022 16:00-0500 Diastolic blood pressure 72 mm[Hg] Morales Golias PT Work Phone: [facility] 09-24-2022 16:00-0500 Systolic blood pressure 108 mm[Hg] Morales Golias PT Work Phone: [facility] 09-22-2022 13:30-0500 Body weight 79.83 kg Laith Galarza HOT STONE SETTER.MARKET INVESTIGATOR Work Phone: [facility] 09-22-2022 13:30-0500 Diastolic blood pressure 62 mm[Hg] Laith Galarza HOT STONE SETTER.MARKET INVESTIGATOR Work Phone: [facility] 09-22-2022 13:30-0500 Heart rate 69 /min Laith Galarza HOT STONE SETTER.MARKET INVESTIGATOR Work Phone: [facility] 09-22-2022 13:30-0500 Respiratory rate 16 /min Laith Galarza HOT STONE SETTER.MARKET INVESTIGATOR Work Phone: [facility] 09-22-2022 13:30-0500 SaO2% (BldA) [Mass fraction] 97 % Laith Galarza HOT STONE SETTER.MARKET INVESTIGATOR Work Phone: [facility] 09-22-2022 13:30-0500 Systolic blood pressure 120 mm[Hg] Laith Galarza HOT STONE SETTER.MARKET INVESTIGATOR Work Phone: [facility] 05-19-2022 15:35-0400 Body temperature 97.5 [degF] Clary Athy PA-C Work Phone: [facility] 05-19-2022 15:35-0400 Body weight 80.02 kg Clary Athy PA-C Work Phone: [facility] 05-19-2022 15:35-0400 Diastolic blood pressure 78 mm[Hg] Clary Athy PA-C Work Phone: [facility] 05-19-2022 15:35-0400 Heart rate 74 /min Clary Athy PA-C Work Phone: [facility] 05-19-2022 15:35-0400 Respiratory rate 18 /min Clary Mcneil PA-C Work Phone: [facility] 05-19-2022 15:35-0400 SaO2% (BldA) [Mass fraction] 97 % Clary Mcneil PA-C Work Phone: [facility] 05-19-2022 15:35-0400 Systolic blood pressure 120 mm[Hg] Clary Mcneil PA-C Work Phone: [facility] 03-18-2022 15:25-0400 Body temperature 97.59 [degF] Arlene Fay APRN.STONECUTTER ASSISTANT Work Phone: [facility] 03-18-2022 15:25-0400 Body weight 83.28 kg Arlene Fay APRN.STONECUTTER ASSISTANT Work Phone: [facility] 03-18-2022 15:25-0400 Diastolic blood pressure 76 mm[Hg] Arlene Fay APRN.STONECUTTER ASSISTANT Work Phone: [facility] 03-18-2022 15:25-0400 Heart rate 67 /min Arlene Fay APRN.STONECUTTER ASSISTANT Work Phone: [facility] 03-18-2022 15:25-0400 Respiratory rate 16 /min Arlene Fay APRN.STONECUTTER ASSISTANT Work Phone: [facility] 03-18-2022 15:25-0400 SaO2% (BldA) [Mass fraction] 97 % Arlene Fay APRN.STONECUTTER ASSISTANT Work Phone: [facility] 03-18-2022 15:25-0400 Systolic blood pressure 132 mm[Hg] Arlene Fay APRN.STONECUTTER ASSISTANT Work Phone: [facility] 02-11-2022 13:18-0400 Body height 168.9 cm Respiratory Wstr Work Phone: [facility] 02-11-2022 13:18-0400 Body weight 83.01 kg Respiratory Wstr Work Phone: [facility] 02-11-2022 13:18-0400 Heart rate 69 /min Respiratory Wstr Work Phone: [facility] 02-11-2022 13:18-0400 Respiratory rate 12 /min Respiratory Wstr Work Phone: [facility] 02-11-2022 13:18-0400 SaO2% (BldA) [Mass fraction] 98 % Respiratory Wstr Work Phone: [facility] 02-10-2022 10:43-0400 Body weight 81.19 kg Laith Galarza HOT STONE SETTER.MARKET INVESTIGATOR Work Phone: [facility] 02-10-2022 10:43-0400 Diastolic blood pressure 68 mm[Hg] Laith Galarza HOT STONE SETTER.MARKET INVESTIGATOR Work Phone: [facility] 02-10-2022 10:43-0400 Heart rate 64 /min Laith Galarza HOT STONE SETTER.MARKET INVESTIGATOR Work Phone: [facility] 02-10-2022 10:43-0400 Respiratory rate 16 /min Laith Galarza HOT STONE SETTER.MARKET INVESTIGATOR Work Phone: [facility] 02-10-2022 10:43-0400 SaO2% (BldA) [Mass fraction] 97 % Laith Galarza HOT STONE SETTER.MARKET INVESTIGATOR Work Phone: [facility] 02-10-2022 10:43-0400 Systolic blood pressure 124 mm[Hg] Laith Galarza HOT STONE SETTER.MARKET INVESTIGATOR Work Phone: [facility] 01-24-2022 15:18-0400 Body temperature 99 [degF] Artur Pendlebury HOT STONE SETTER.STONECUTTER ASSISTANT Work Phone: [facility] 01-24-2022 15:18-0400 Body weight 81.65 kg Artur Pendlebury HOT STONE SETTER.STONECUTTER ASSISTANT Work Phone: [facility] 01-24-2022 15:18-0400 Diastolic blood pressure 72 mm[Hg] Artur Pendlebury HOT STONE SETTER.STONECUTTER ASSISTANT Work Phone: [facility] 01-24-2022 15:18-0400 Heart rate 63 /min Artur Pendlebury HOT STONE SETTER.STONECUTTER ASSISTANT Work Phone: [facility] 01-24-2022 15:18-0400 Respiratory rate 20 /min Artur Tejadayanetbury HOT STONE SETTER.STONECUTTER ASSISTANT Work Phone: [facility] 01-24-2022 15:18-0400 SaO2% (BldA) [Mass fraction] 97 % Artur Tuckerbury HOT STONE SETTER.STONECUTTER ASSISTANT Work Phone: [facility] 01-24-2022 15:18-0400 Systolic blood pressure 120 mm[Hg] Artur Caitlinbury HOT STONE SETTER.STONECUTTER ASSISTANT Work Phone: [facility] 11-07-2021 17:56-0400 Body temperature 98.71 [degF] Berny Charles HOT STONE SETTER.STONECUTTER ASSISTANT Work Phone: [facility] 11-07-2021 17:56-0400 Body weight 81.65 kg Berny Charles HOT STONE SETTER.STONECUTTER ASSISTANT Work Phone: [facility] 11-07-2021 17:56-0400 Diastolic blood pressure 68 mm[Hg] Berny Charles HOT STONE SETTER.STONECUTTER ASSISTANT Work Phone: [facility] 11-07-2021 17:56-0400 Heart rate 68 /min Berny Charles HOT STONE SETTER.STONECUTTER ASSISTANT Work Phone: [facility] 11-07-2021 17:56-0400 Respiratory rate 16 /min Berny Charles HOT STONE SETTER.STONECUTTER ASSISTANT Work Phone: [facility] 11-07-2021 17:56-0400 SaO2% (BldA) [Mass fraction] 96 % Berny Charles HOT STONE SETTER.STONECUTTER ASSISTANT Work Phone: [facility] 11-07-2021 17:56-0400 Systolic blood pressure 122 mm[Hg] Berny Charles HOT STONE SETTER.STONECUTTER ASSISTANT Work Phone: [facility] Encounters Encounter Date Encounter Type Care Provider Facility Start: 09-22-2023 End: 09-22-2023 ambulatory GIANFRANCO SINGH Facility:[facility] Start: 09-21-2023 ambulatory Gianfranco hernandez MD Work Phone: [facility] [place] Procedures Date Procedure Procedure Detail Performing Clinician Start: 05-18-2023 [employer] COVI D-19 VACCINE (2022- SEASON) AGE 12+ YR Saul Omer HOT STONE SETTER.STONECUTTER ASSISTANT Work Phone: Start: 05-18-2023 INFLUENZA VACCINE, A GE 6 MO - 64 YR, QUADRIVALENT (AFLURIA, FLULAVAL, FLUZONE) Saul Omer HOT STONE SETTER.STONECUTTER ASSISTANT Work Phone: Start: 02-26-2022 Computerized corneal topography uni/bi Elian Cordova MD Work Phone: Start: 02-11-2022 Computerized ophthal terry imaging optic nerve Caridad Diaz OD Work Phone: Start: 02-11-2022 Brncdilat rspse spmt ry pre&post-brncdilat admn Laith Galarza HOT STONE SETTER.MARKET INVESTIGATOR Work Phone: Start: 11-07-2021 Urnls dip stick/tabl et rgnt auto w/o microscopy Clary Mcneil PA-C Work Phone: Start: 01-06-2017 Colonoscopy Berny peraza HOT STONE SETTER.STONECUTTER ASSISTANT Work Phone: Start: 11-27-2014 Mammography Berny peraza HOT STONE SETTER.STONECUTTER ASSISTANT Work Phone: Plan of Treatment Date Care Activity Detail Author Start: 10-08-2027 HPV TESTING HPV TESTING [facility] Start: 10-08-2027 PAP TESTING PAP TESTING [facility] Start: 10-08-2027 Screening for malign ant neoplasm of cervix [facility] Start: 01-06-2027 Colonoscopy COLONOSCOPY [facility] Start: 01-06-2027 COLORECTAL CANCER SCREENING COLORECTAL CANCER SCREENING [facility] Start: 01-06-2027 Screening for malign ant neoplasm of colon [facility] Start: 2026 PNEUMOCOCCAL (3 - PP SV23 if available, else PCV20) PNEUMOCOCCAL (3 - PPSV23 if available, else PCV20) [facility] Start: 2026 PNEUMOCOCCAL (3 - PP SV23 or PCV20) PNEUMOCOCCAL (3 - PPSV23 or PCV20) [facility] Start: 2026 Pneumococcal vaccination [facility] Start: 06-13-2026 Urine microalbumin profile [facility] Start: 09-14-2024 Annual PCP Team Assembly Inspector Helper irene Disease Visit Annual PCP Team Chronic Disease Visit [facility] Start: 05-18-2024 Annual PCP Team Assembly Inspector Helper irene Disease Visit Annual PCP Team Chronic Disease Visit [facility] Start: 09-23-2023 ANNUAL PCP TEAM SOCK LINING EXAMINER IRENE DISEASE VISIT ANNUAL PCP TEAM CHRONIC DISEASE VISIT [facility] Start: 09-23-2023 Hepatitis B screening URINE AL BUMIN:CREATININE RATIO [facility] Start: 09-23-2023 Hepatitis B surface antibody level LDL CHOLESTEROL [facility] Start: 08-18-2023 Hemoglobin A1c measurement HbA1C [facility] Start: 08-18-2023 Hemoglobin A1c/Hemoglobin.total in Blood HbA1C [facility] Start: 07-20-2023 SHINGRIX VACCINE (1 of 2) SHINGRIX V ACCINE (1 of 2) [facility] Immunizations Immunization Date Immunization Notes Care Provider Fa cility 05-18-2023 COVID-19 vaccine, ag e 12+ yr, season (PFIZER-BIONTECH) Gianfranco Singh MD Work Phone: [facility] Work Phone: 05-18-2023 influenza, injectabl e, quadrivalent, contains preservative Gianfranco Singh MD Work Phone: [facility] Work Phone: 07-04-2022 influenza virus vacc ine, unspecified formulation Gianfranco Singh MD Work Phone: [facility] 04-13-2021 influenza, injectabl e, quadrivalent, contains preservative Berny Soto APRN.STONECUTTER ASSISTANT Work Phone: [facility] 11-01-2020 COVID-19 vaccine, ag e 12+ yr (PFIZER-BIONTECH - PURPLE TOP) Berny Soto APRN.STONECUTTER ASSISTANT Work Phone: [facility] 10-09-2020 COVID-19 vaccine, ag e 12+ yr (PFIZER-BIONTECH - PURPLE TOP) Berny Soto APRN.STONECUTTER ASSISTANT Work Phone: [facility] 07-16-2020 influenza, injectabl e, quadrivalent, contains preservative Berny Charles HOT STONE SETTER.STONECUTTER ASSISTANT Work Phone: [facility] Work Phone: 04-30-2019 influenza, injectabl e, quadrivalent, contains preservative Berny Charles HOT STONE SETTER.STONECUTTER ASSISTANT Work Phone: [facility] 04-19-2019 influenza, seasonal, injectable, preservative free Berny Charles HOT STONE SETTER.STONECUTTER ASSISTANT Work Phone: [facility] Work Phone: 04-22-2017 influenza, seasonal, injectable Berny Charles HOT STONE SETTER.[facility] Work Phone: [facility] Work Phone: 06-13-2016 influenza, injectabl e, quadrivalent, contains preservative Berny Charles HOT STONE SETTER.STONECUTTER ASSISTANT Work Phone: [facility] 06-13-2016 tetanus toxoid, redu raz diphtheria toxoid, and acellular pertussis vaccine, adsorbed Berny Charles HOT STONE SETTER.STONECUTTER ASSISTANT Work Phone: [facility] 05-07-2015 influenza, injectabl e, quadrivalent, contains preservative Berny Charles HOT STONE SETTER.[facility] Work Phone: [facility] 05-07-2015 pneumococcal polysaccharide vaccine, 23 valent Berny Charles HOT STONE SETTER.STONECUTTER ASSISTANT Work Phone: [facility] 10-13-2014 pneumococcal conjuga te vaccine, 13 valent Berny Charles HOT STONE SETTER.STONECUTTER ASSISTANT Work Phone: [facility] 05-11-2014 influenza, seasonal, injectable Berny Charles HOT STONE SETTER.STONECUTTER ASSISTANT Work Phone: [facility] Work Phone: 04-19-2014 influenza virus vacc ine, unspecified formulation Berny Charles HOT STONE SETTER.STONECUTTER ASSISTANT Work Phone: [facility] 05-10-2009 influenza virus vacc ine, unspecified formulation Berny Charles HOT STONE SETTER.STONECUTTER ASSISTANT Work Phone: [facility] Work Phone: 01-13-2006 tetanus and diphther ia toxoids, adsorbed, preservative free, for adult use (2 Lf of tetanus toxoid and 2 Lf of diphtheria toxoid) Berny Charles HOT STONE SETTER.STONECUTTER ASSISTANT Work Phone: [facility] 05-26-2005 influenza virus vacc ine, unspecified formulation Berny Soto HOT STONE SETTER.STONECUTTER ASSISTANT Work Phone: [facility] Work Phone: Payers Date Payer Category Payer Medicare [id number] 2022 Unknown [id number] 2021 Unknown [id number] 2019 Unknown [id number] 2018 Medicare 2017 Medicare [id number] 1960 Unknown [id number] 1960 Unknown [id number] 1960 Unknown [id number] Social History Date Type Detail Facility Start: 12-24-2018 End: 09-14-2023 Tobacco smoking status NHIS Ex-smoker [facility] Work Phone: End: 07-11-2023 History of tobacco use Current smoker [facility] Work Phone: End: 07-11-2023 History of tobacco use Cigarette Smoker [facility] Work Phone: Start: 12-24-2018 End: 12-19-2022 Cigarettes smoked current (pack per day) - Reported 0.2 [facility] Start: 12-24-2018 Tobacco use and exposure Smokeless tobacco non-user [facility] Work Phone: Start: 08-08-2021 End: 09-14-2023 Alcohol intake Current non-drinker of alcohol (finding) [facility] Start: 04-20-2020 End: 11-21-2020 History SDOH Alcohol Frequency 1 [facility] Start: 11-27-2014 History SDOH Alcohol Comment recovering alcoholic- none in past 9 yrs [facility] Start: 04-20-2020 End: 01-28-2022 History SDOH Social Connections Phone 5 [facility] Start: 04-20-2020 End: 01-28-2022 History SDOH Social Connections Meetings 3 [facility] Start: 04-20-2020 End: 01-28-2022 History SDOH Social Connections Living 4 [facility] Start: 04-20-2020 End: 01-28-2022 History SDOH Transport Med 2 [facility] Start: 04-20-2020 Education 21 [facility] Start: 10-13-2014 End: 03-18-2022 Tobacco Comment Pt states she smokes 2-4 EVAP cigarettes. [facility] Start: 1960 Sex Assigned At Female C [facility] Start: 01-14-2022 End: 05-19-2022 Exposure to SARS-CoV-2 (event) Not sure [facility] Work Phone: Start: 01-28-2022 History SDOH Physica l Activity DPW 0 [facility] Start: 01-24-2022 End: 02-03-2022 Exposure to SARS-CoV-2 (event) Yes [facility] Start: 03-18-2022 End: 09-14-2023 Tobacco use and exposure Former smokeless tobacco user [facility] Start: 10-07-2022 Tobacco smoking stat us UTIS Occasional tobacco smoker [facility] Work Phone: Start: 01-28-2022 End: 12-19-2022 Social connection and isolation panel [facility] Are you now , , , , never or living with a partner? [facility] How often to you hav e a drink containing alcohol? Never [facility] Average Number of Drinks Not on file [facility] How hard is it for y ou to pay for the very basics like food, housing, medical care, and heating Somewhat hard [facility] Do you feel stress - tense, restless, nervous, or anxious, or unable to sleep at night because your mind is troubled all the time - these days [OSQ] Only a little [facility] (I/We) worried cassie er (my/our) food would run out before (I/we) got money to buy more. Never true [facility] In the past 12 month s, was there a time when you were not able to pay the mortgage or rent on time? No [facility] Start: 02-01-2020 Gender identity Identifies as female gender (finding) [facility] Start: 02-01-2020 Sexual orientation Heterosexual (elian ma) [facility] Start: 09-14-2023 Tobacco Comment Pt states she no longer smokes 2-4 EVAP cigarettes. \Smoked for a few months then none for past 3 months (September 14, 2023) [facility] Medical Equipment Procedure Code Equipment Code Equipment Origin al Text Equipment Identifier Dates Cement Bone Simp colton - [id number] Start: 08-27-2009 Femur Triathlon Cr Sz 5 Left - [id number] Start: 08-27-2009 Insert Tib Tri C r X3 #4 9mm - [id number] Start: 08-27-2009 Patella Asymmetr ic 35mm X 10mm - [id number] Start: 08-27-2009 Baseplate Triath kaley Prim Sz4 - [id number] Start: 08-27-2009 Start: 03-08-2016 End: 05-18-2023 Clinical Notes 04-09-2015 to 09-21-2023 Telephone Encounter - Maribel Cobos RN - 09/21/2023 1:23 PM ESTTelephone Encounter - Belle Chacon LPN - 09/11/2023 6:15 PM ESTTelephone Encounter - Tristan Quiles RN - 09/11/2023 5:48 PM EST Note Date & Type Note Facility 09-21-2023 Miscellaneous Notes Reason for Disposition Side (flank) or lower back pain present Answer Assessment - Initial Assessment Questions 1. SYMPTOM: burning with urination 2. ONSET: 4 days ago 3. PAIN: mild intermittent low back pain 4. CAUSE: possible UTI 5. OTHER SYMPTOMS: pink tinge (blood) in urine 4 days ago. Resolved. 6. : NO Protocols used: Urinary [id number] documented in this encounter [facility] 09-15-2023 Note HNO ID: [id number] Author: SARAN JIMENEZ, PhD Service: ? Author Type: Psychologist Type: Progress Notes Filed: 09/15/2023 17:18 Note Text: [facility] Progress Note Twyla Escalona 09/15/2023 [id number] PROVIDER: Saran Jimenez, PhD CPT Code: Time: 50 minutes Setting: Patient seen in person Parties Present: Patient Treatment Modality/Interventions: Cognitive Behavioral Reassurance/Supportive Insight oriented Problem solving Processing of emotions Treatment planning MENTAL STATUS: Mood: variable Affect: mood-congruent Thoughts/Associations:goal directed Suicidal/Homicidal Ideation: None expressed or evidenced Other Prominent Symptoms: Therapy Focus/Content of Session: Self-care, Mood/affect regulation, Parenting, and Self-esteem Pts son left his finally... she seems PD and up and down in intensity... he lived w her w her grandson of 6 now ... then drinking increased and he was aggressive OUTCOME: SHE kicked him out and a restraining order THEN depressed and NOW starting to get her feet on the ground again friendships, AA, Sikh, a mental health group on mondays etc. she took care of mom 4 years ... was mean and became nicer over time until a Year ago pt misses dad the most and misses having mom there PLAN: live life well and engage again MEDICATIONS: Per medical record: Current Outpatient Medications Medication Sig clonazePAM (KLONOPIN) 2 mg tablet Take 1 tablet by mouth two times a day as needed for up to 28 days. Fill today since patient only given 50 pills when filled 08/18/23 [START ON 10/12/2023] clonazePAM (KLONOPIN) 2 mg tablet Take 1 tablet by mouth two times a day as needed for up to 56 days. Do not start before October 12, 2023. venlafaxine ER (EFFEXOR XR) 150 mg 24 hr capsule One capsule twice daily gabapentin (NEURONTIN) 300 mg capsule Take 1 capsule by mouth three times a day. propranolol (INDERAL) 40 mg tablet Take 1 tablet by mouth three times a day. metFORMIN (GLUCOPHAGE) 500 mg tablet Take 2 tablets by mouth two times a day with meals. atorvastatin (LIPITOR) 10 mg tablet Take 1 tablet by mouth once daily. omeprazole (PRILOSEC) 20 mg capsule Take 1 capsule by mouth once daily. naproxen (NAPROSYN) 500 mg tablet Take 1 tablet by mouth two times a day as needed (for pain/inflammation). Take with food. Insulin Syringe-Needle U-100 0.5 mL 30 gauge x 1/2 1 Each once daily. and as needed. Use one syringe/needle for each dose blood sugar diagnostic test strip One Touch test strips for patient's covered meter--Check 2 to 3 times daily (E11.9, Z79.4) Type 2 diabetes mellitus. Insulin: YES insulin NPH-insulin regular 70/30 100 unit/mL (70-30) pen Inject 12 Units subcutaneously two times a day with meals. albuterol HFA (PROVENTIL HFA, VENTOLIN HFA) 90 mcg/actuation inhaler Inhale 2 Puffs as instructed every 4 hours as needed for wheezing/shortness of breath. clindamycin (CLEOCIN-T) 1 % gel Apply to affected area two times a day. flash glucose sensor (FREESTYLE KIMBERLY 2 SENSOR) kit Apply new sensor every fourteen (14) days to upper arm.Type 2 diabetes mellitus without complication, with long-term current use of insulin (HCC) [E11.9, Z79.4] cyclobenzaprine (FLEXERIL) 10 mg tablet Take 1 tablet by mouth at bedtime as needed. FOR PAIN OR SPASMS insulin syr/ndl U100 half blane 0.5 mL 30 gauge x 1/2 syrg 1 Each once daily as needed. moxifloxacin (VIGAMOX) 0.5 % ophthalmic solution Use 1 Drop in the right eye four times daily. Please start 3 days prior to your surgical date keTORolac (ACULAR) 0.5 % ophthalmic solution Use 1 Drop in the right eye four times daily. Please start 3 days prior to your surgical date prednisoLONE acetate (PRED FORTE, ECONOPRED PLUS) 1 % ophthalmic suspension Use 1 Drop in the right eye four times daily. Please start 3 days prior to your surgical date albuterol HFA (VENTOLIN HFA) 90 mcg/actuation inhaler Inhale 2 Puffs as instructed every 4 hours as needed for wheezing/shortness of breath. cyanocobalamin (VITAMIN B-12) 100 mcg tab Take 100 mcg by mouth once daily. zinc sulfate (ZINC-15 ORAL) Take by mouth. Ascorbic Acid 1,000 mg tablet Take 1,000 mg by mouth once daily. Cikxexitpfxuf-Ggxtrcln-Hcrrpd (MULTIVITAMIN 50 PLUS) tab Take 1 tablet by mouth once daily. Cholecalciferol, Vitamin D3, 5,000 unit cap Take 1 capsule by mouth once daily. Lancets (ThoughtBoxTOUCH ULTRASOFT LANCETS) lancets Use one lancet daily . Use as instructed dx. E 11.9 Blood-Glucose Meter (Gone!UCH ULTRA2) monitoring kit 1 Each as needed (Test 2-3 times a day or as needed). One Touch Meter Kit Diagnosis: Diabetes Mellitus aspirin, enteric coated 81 mg ORAL EC tablet No current facility-administered medications for this visit. Psychiatric Medication Issues: see med record DIAGNOSIS: [place] I: Grief Depression PTSD Chronic Pain History of Alcohol Dependence .. sober (more content not included)... [facility] 09-14-2023 Note HNO ID: [id number] Author: GIANFRANCO SINGH MD Service: ? Author Type: Physician Type: Progress Notes Filed: 09/22/2023 11:41 Note Text: This note was created using [employer]riter. Subjective Twyla Escalona is a 63 year old female. Patient presents with: Rx Refills SUBJECTIVE: Twyla Escalona is a 63 year old year old lady here today for follow up appointment for review of medical conditions. [facility]ed [facility]--threw off RXs. Noted stressors. Son with etoh issues. Reviewed has done well staying sober. 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 Family history noted Clonazepam usually 1 twice daily but sometimes can take half pill at night. Reviewed last RX got 50 pills due to 6 pills due to [facility] not coming on time. Did not have pills over the weekend. Withdrawal symptoms. Feels anxious and legs jumping. Did not sleep well last night. Sees Dr. Jimenez as needed. PAST MEDICAL HISTORY Diagnosis Date ALCOHOL ABUSE-UNSPEC 08/07/2005 Ankylosing spondylitis (HCC) BIPOLAR DISORDER NOS 08/07/2005 Cervical high risk human papillomavirus (HPV) DNA test positive COPD (chronic obstructive pulmonary disease) (HCC) DEPRESSIVE DISORDER NEC 08/07/2005 Diabetes (HCC) History of cigarette smoking 04/09/2015 IRRITABLE COLON 08/07/2005 Mild dysplasia of cervix 2008 MITRAL VALVE DISORDER 08/07/2005 MYALGIA AND MYOSITIS NOS 08/07/2005 Papanicolaou smear of cervix with atypical squamous cells of undetermined significance (ASC-US) Current Outpatient Medications Medication Sig atorvastatin (LIPITOR) 10 mg tablet Take 1 tablet by mouth once daily. blood sugar diagnostic test strip One Touch test strips for patient's covered meter--Check 2 to 3 times daily (E11.9, Z79.4) Type 2 diabetes mellitus. Insulin: YES albuterol HFA (PROVENTIL HFA, VENTOLIN HFA) 90 mcg/actuation inhaler Inhale 2 Puffs as instructed every 4 hours as needed for wheezing/shortness of breath. albuterol HFA (VENTOLIN HFA) 90 mcg/actuation inhaler Inhale 2 Puffs as instructed every 4 hours as needed for wheezing/shortness of breath. Ascorbic Acid 1,000 mg tablet Take 1,000 mg by mouth once daily. aspirin, enteric coated 81 mg ORAL EC tablet clonazePAM (KLONOPIN) 2 mg tablet Take 1 tablet by mouth two times a day as needed for up to 28 days. Fill today since patient only given 50 pills when filled 08/18/23 venlafaxine ER (EFFEXOR XR) 150 mg 24 hr capsule One capsule twice daily gabapentin (NEURONTIN) 300 mg capsule Take 1 capsule by mouth three times a day. propranolol (INDERAL) 40 mg tablet Take 1 tablet by mouth three times a day. metFORMIN (GLUCOPHAGE) 500 mg tablet Take 2 tablets by mouth two times a day with meals. omeprazole (PRILOSEC) 20 mg capsule Take 1 capsule by mouth once daily. naproxen (NAPROSYN) 500 mg tablet Take 1 tablet by mouth two times a day as needed (for pain/inflammation). Take with food. Insulin Syringe-Needle U-100 0.5 mL 30 gauge x 1/2 1 Each once daily. and as needed. Use one syringe/needle for each dose insulin NPH-insulin regular 70/30 100 unit/mL (70-30) pen Inject 12 Units subcutaneously two times a day with meals. clindamycin (CLEOCIN-T) 1 % gel Apply to affected area two times a day. flash glucose sensor (FREESTYLE KIMBERLY 2 SENSOR) kit Apply new sensor every fourteen (14) days to upper arm.Type 2 diabetes mellitus without complication, with long-term current use of insulin (HCC) [E11.9, Z79.4] cyclobenzaprine (FLEXERIL) 10 mg tablet Take 1 tablet by mouth at bedtime as needed. FOR PAIN OR SPASMS insulin syr/ndl U100 half blane 0.5 mL 30 gauge x 1/2 syrg 1 Each once daily as needed. moxifloxacin (VIGAMOX) 0.5 % ophthalmic solution Use 1 Drop in the right eye four times daily. Please start 3 days prior to your surgical date keTORolac (ACULAR) 0.5 % ophthalmic solution Use 1 Drop in the right eye four times daily. Please start 3 days prior to your surgical date prednisoLONE acetate (PRED FORTE, ECONOPRED PLUS) 1 % ophthalmic suspension Use 1 Drop in the right eye four times daily. Please start 3 days prior to your surgical date cyanocobalamin (VITAMIN B-12) 100 mcg tab Take 100 mcg by mouth once daily. zinc sulfate (ZINC-15 ORAL) Take by mouth. Gzuydvgaqxkam-Tsaoojsw-Ewbwok (MULTIVITAMIN 50 PLUS) tab Take 1 tablet by mouth once daily. Cholecalciferol, Vitamin D3, 5,000 unit cap Take 1 capsule by mouth once daily. Lancets (ONETOUCH ULTRASOFT LANCETS) lancets Use one lancet daily . Use as instructed dx. E 11.9 Blood-Glucose Meter (ONETOUCH ULTRA2) monitoring kit 1 Each as needed (Test 2-3 times a day or as needed). One Touch Meter Kit Diagnosis: Diabetes Mellitus No current facility-administered medications for this visit. Review of Systems Objective BP 160/100 Pulse 80 Resp 16 Wt 83 kg (183 lb) LMP 02/14/2007 BMI 29.99 kg/m? 09/14/23 1509 09/14/23 1556 BP: 160/100 138/80 Pulse: 80 Resp: 16 Weight: 83 kg (183 lb) Last 5 Encounter Wt Readings: (more content not included)... [facility] 09-11-2023 Miscellaneous Notes Spoke with Pharmacy they stated she picked up 6 tabs on 06/10 then picked up 50 tabs on 08/18. Spoke with pt to notify her she did receive full script as it was written. Pt advised to reach out to office on Thursday about the script. Pt voiced understanding Belle Chacon LPN Patient calling with request for medication/refill: Patient/caregiver requesting refill of Klonopin 2mg be called to [facility] ([place] pharmacy at [phone]., Do you have enough medication to last until the office reopens? States she only has enough for one more day. , and Have you contacted your pharmacy to ask for enough medication to get by until the office reopens? Yes. . Patient denies any new or worsening symptoms of which a provider is not aware: Yes. Patient states that she just got this refilled on 08/18/23 and was only given 50 tablets when she normally gets 60 tablets. Per patient, if she goes 1 day without medication, she gets muscle twinges. Refill was sent to [facility] on 09/10 with a note stating not to start taking until after 09/15, patient was made aware of this. Continues to state that she was only given 50 tablets last time it was refilled and she needs this medication. Patient was advised that there is a possibility that this medication will not be authorized to be filled at this time. States that if that happens, she will just go to the ER. Allergies reviewed documented in this encounter [facility] 09-10-2023 Miscellaneous Notes The following approved medication requests have been transmitted electronically. Requested Prescriptions Signed Prescriptions Disp Refills clonazePAM (KLONOPIN) 2 mg tablet 56 tablet 0 Sig: Take 1 tablet by mouth two times a day as needed for up to 28 days. Do not start before September 15, 2023. Authorizing Provider: GIANFRANCO SINGH MD Patient has been identified by name and date of : Yes, Steph Olivo RN Date 09/10/2023 Time 4:42 pm Patient phones for refill(s): Requested Prescriptions Pending Prescriptions Disp Refills clonazePAM (KLONOPIN) 2 mg tablet 56 tablet 0 Sig: Take 1 tablet by mouth two times a day as needed for up to 28 days. Date of last office visit in primary care: 08/27/2023 Date of next office visit in primary care: 09/18/2023 Please advise. Thank you. Steph Olivo RN. documented in this encounter [facility] 09-09-2023 Note Patient Outreach (IN TMMN) TWYLA ESCALONA ([id number]) 1960 F NFR Date Time Provider Department 09/09/23 GIANFRANCO SINGH During your visit today, we recorded the following information about you: Allergies As of Date: 09/09/2023 Noted Allergy Reaction HYDROCODONE 11/28/2003 8 - GI Upset PENICILLINS 06/13/2003 4 - Hives 8 - GI Upset Date Reviewed: 08/27/2023 Reviewed by: Ya Zhao LPN - Fully Assessed Visit Diagnosis:Encounter for screening mammogram for breast cancer [Z12.31] Order(s):[facility] SCREENING [1808887] Order #: [id number] FUTURE Prescriptions as of 09/14/2023 - clonazePAM (KLONOPIN) 2 mg tablet Take 1 tablet by mouth two times a day as needed for up to 28 days. Do not start before September 15, 2023. - venlafaxine ER (EFFEXOR XR) 150 mg 24 hr capsule One capsule twice daily - gabapentin (NEURONTIN) 300 mg capsule Take 1 capsule by mouth three times a day. - propranolol (INDERAL) 40 mg tablet Take 1 tablet by mouth three times a day. - metFORMIN (GLUCOPHAGE) 500 mg tablet Take 2 tablets by mouth two times a day with meals. - atorvastatin (LIPITOR) 10 mg tablet Take 1 tablet by mouth once daily. - omeprazole (PRILOSEC) 20 mg capsule Take 1 capsule by mouth once daily. - naproxen (NAPROSYN) 500 mg tablet Take 1 tablet by mouth two times a day as needed (for pain/inflammation). Take with food. - Insulin Syringe-Needle U-100 0.5 mL 30 gauge x 1/2 1 Each once daily. and as needed. Use one syringe/needle for each dose - blood sugar diagnostic test strip One Touch test strips for patient's covered meter--Check 2 to 3 times daily (E11.9, Z79.4) Type 2 diabetes mellitus. Insulin: YES - insulin NPH-insulin regular 70/30 100 unit/mL (70-30) pen Inject 12 Units subcutaneously two times a day with meals. - albuterol HFA (PROVENTIL HFA, VENTOLIN HFA) 90 mcg/actuation inhaler Inhale 2 Puffs as instructed every 4 hours as needed for wheezing/shortness of breath. - clindamycin (CLEOCIN-T) 1 % gel Apply to affected area two times a day. - flash glucose sensor (FREESTYLE KIMBERLY 2 SENSOR) kit Apply new sensor every fourteen (14) days to upper arm.Type 2 diabetes mellitus without complication, with long-term current use of insulin ([facility]) [E11.9, Z79.4] - cyclobenzaprine (FLEXERIL) 10 mg tablet Take 1 tablet by mouth at bedtime as needed. FOR PAIN OR SPASMS - insulin syr/ndl U100 half blane 0.5 mL 30 gauge x 1/2 syrg 1 Each once daily as needed. - moxifloxacin (VIGAMOX) 0.5 % ophthalmic solution Use 1 Drop in the right eye four times daily. Please start 3 days prior to your surgical date - keTORolac (ACULAR) 0.5 % ophthalmic solution Use 1 Drop in the right eye four times daily. Please start 3 days prior to your surgical date - prednisoLONE acetate (PRED FORTE, ECONOPRED PLUS) 1 % ophthalmic suspension Use 1 Drop in the right eye four times daily. Please start 3 days prior to your surgical date - albuterol HFA (VENTOLIN HFA) 90 mcg/actuation inhaler Inhale 2 Puffs as instructed every 4 hours as needed for wheezing/shortness of breath. - cyanocobalamin (VITAMIN B-12) 100 mcg tab Take 100 mcg by mouth once daily. - zinc sulfate (ZINC-15 ORAL) Take by mouth. - Ascorbic Acid 1,000 mg tablet Take 1,000 mg by mouth once daily. - Afsvhofdvueow-Zxjtpqjt-Afzcze (MULTIVITAMIN 50 PLUS) tab Take 1 tablet by mouth once daily. - Cholecalciferol, Vitamin D3, 5,000 unit cap Take 1 capsule by mouth once daily. - Lancets (Gone!UCH ULTRASOFT LANCETS) lancets Use one lancet daily . Use as instructed dx. E 11.9 - Blood-Glucose Meter ([employer] ULTRA2) monitoring kit 1 Each as needed (Test 2-3 times a day or as needed). 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] 10/06/2008 DERANG MED MENISCUS NEC [M23.305] 10/06/2008 Follow-up examination, following other surgery *11/03/2008 11/27/2014 COPD (Chronic Obstructive Pulmonary Disease) [J* DM (diabetes mellitus) [E11.9] 09/27/2012 Displacement of lumbar intervertebral disc with*10/07/2012 Sciatica [M54.30] 10/07/2012 Ankylosing spondylitis (HCC) [M45.9] 01/23/2015 History of cigarette smoking [Z87.891] 04/09/2015 04/30/2019 TBI (traumatic brain injury) ([facility]) [S06.9XAA] 05/07/2015 Chronic post-traumatic stress disorder [F43.12] 05/07/2015 Dilated cbd, acquired [K83.8] 08/29/2016 Dyslipidemia associated with type 2 diabetes me*04/28/2017 Vitamin D deficiency [E55.9] 03/01/2018 Glaucoma suspect of both eyes [ (more content not included)... [facility] 09-01-2023 Miscellaneous Notes Spoke to Mauricio, [facility] had RX transferred [facility] Patient has been identified by name and date of : Yes Patient phones for refill(s): Requested Prescriptions Pending Prescriptions Disp Refills venlafaxine ER (EFFEXOR XR) 150 mg 24 hr capsule Sig: Take 1 capsule by mouth. Date of last office visit in primary care: 08/27/2023 Date of next office visit in primary care: 09/18/2023 Please advise. Thank you. Liza Renee LPN. Patient has been identified by name and date of : Yes Requested Prescriptions Pending Prescriptions Disp Refills venlafaxine ER (EFFEXOR XR) 150 mg 24 hr capsule Sig: Take 1 capsule by mouth. RX INSTRUCTIONS: Patient aware RX will be sent to pharmacy. No need to notify patient. Nayeli Chawla documented in this encounter [facility] 08-27-2023 Note HNO ID: [id number] Author: LAITH GALARZA APRN.MARKET INVESTIGATOR Service: ? Author Type: Nurse Specialist Type: Progress Notes Filed: 08/27/2023 15:04 Note Text: HPI Twyla Escalona is a 63 year old female. PMH significant for ACTIVE PROBLEM LIST Depressive Disorder Mitral Valve Disorders(424.0) Irritable Bowel Syndrome Bipolar Disorder, Unspecified (Hcc) History of Alcohol Dependence ([facility]) Chondromalacia of Patella Other and Unspecified Derangement of Medial Meniscus Copd (Chronic Obstructive Pulmonary Disease) (Hcc) Dm (Diabetes Mellitus) ([facility]) Displacement of Lumbar Intervertebral Disc Without Myelopathy Sciatica Ankylosing Spondylitis (Hcc) Tbi (Traumatic Brain Injury) (Hcc) Chronic Post-Traumatic Stress Disorder Dilated Cbd, Acquired Dyslipidemia Associated With Type 2 Diabetes Mellitus (Hcc) (Hcc) Vitamin D Deficiency Glaucoma Suspect of Both Eyes Acute Mid Back Pain Presents for driange from eye x 2 days. She notes purulent sinus drainage and congestion, right side greater than left. Right eye with more drainage and pain. Perceived fever. No sick contacts. No cough wheeze or increased sputum production. She notes right eye is painful. No vision changes. Notes right eye seems a bit swollen. Headache on the right frontal area. No ear pain. HISTORY REVIEWED: - medical history - medications - allergies REVIEW OF SYSTEMS: GENERAL: positive for fatigue. no recent change in weight, no fever RESPIRATORY: positive for cough. no wheezing or shortness of breath CARDIOVASCULAR: no chest pain, no palpitations, no leg swelling ENDOCRINE: denies polyuria or polydipsia, PHYSICAL EXAMINATION: [facility] 02/14/2007 General appearance: ill appearing, alert, in no acute distress, well-hydrated, well nourished. Skin: Skin color, texture, turgor normal. Head: Normocephalic. Eyes: Anicteric sclera. scant drainage positive mild erythema swelling right eye Ears: TM visible bilaterally, no erythema Throat: Mild erythema to pharynx, no exudate Neck: Cervical adenopathy Component Latest Ref Rng AND Units 01/08/2022 Protein, Total 6.3 - 8.0 g/dL 6.6 Albumin 3.9 - 4.9 g/dL 4.0 Calcium 8.5 - 10.2 mg/dL 8.8 Bilirubin, Total 0.2 - 1.3 mg/dL 0.3 Alkaline Phosphatase 34 - 123 U/L 116 AST 13 - 35 U/L 15 ALT 7 - 38 U/L 12 Glucose 74 - 99 mg/dL 130 (H) BUN 7 - 21 mg/dL 13 Creatinine 0.58 - 0.96 mg/dL 0.58 Sodium 136 - 144 mmol/L 138 Potassium 3.7 - 5.1 mmol/L 4.0 Chloride 97 - 105 mmol/L 104 CO2 22 - 30 mmol/L 23 Anion Gap 9 - 18 mmol/L 11 eGFR >=60 mL/min/1.73mA? 104 WBC 3.70 - 11.00 k/uL 9.20 RBC 3.90 - 5.20 m/uL 4.36 Hemoglobin 11.5 - 15.5 g/dL 12.0 Hematocrit 36.0 - 46.0 % 36.4 MCV 80.0 - 100.0 fL 83.5 MCH 26.0 - 34.0 pg 27.5 MCHC 30.5 - 36.0 g/dL 33.0 RDW-CV 11.5 - 15.0 % 13.3 Platelet Count 150 - 400 k/uL 228 MPV 9.0 - 12.7 fL 10.2 Absolute nRBC <0.01 k/uL <0.01 Total Cholesterol, Nonfasting <200 mg/dL 146 Triglycerides, Nonfasting <150 mg/dL 366 (H) HDL Cholesterol, Nonfasting >39 mg/dL 36 (L) LDL Cholesterol, Nonfasting <100 mg/dL 37 Non HDL Cholesterol, Nonfasting <130 mg/dL 110 VLDL Cholesterol, Nonfasting <30 mg/dL 73 (H) Total Chol/HDL Ratio, Nonfasting <5.10 mg/dL 4.06 LDL/HDL Ratio, Nonfasting <2.54 mg/dL 1.03 Hemoglobin A1C 4.3 - 5.6 % 7.2 (H) Estimated Average Glucose mg/dL 160 Magnesium 1.7 - 2.3 mg/dL 1.7 Vitamin D 25 Hydroxy 31.0 - 80.0 ng/mL 34.9 ASSESSMENT/PLAN: 1. Acute bacterial conjunctivitis of both eyes - ICD9: 372.03, ICD10: H10.33 (primary diagnosis) - see medication orders -Should let us know if not feeling improved or high fever, development of periorbital redness or swelling, eye pain, visual changes, concerns or if symptoms persist. Recommend visit with eye doctor if persistent symptoms. - POLYMYXIN B SULFATE 10,000 UNIT-TRIMETHOPRIM 1 MG/ML EYE DROPS 2. . Acute non-recurrent frontal sinusitis - ICD9: 461.1, ICD10: J01.10 - Will begin treatment with as per antibiotic as written, see orders - Supportive care with plenty of fluids, rest, and analgesia prn. - Follow up in if symptoms persist or worsen. - POLYMYXIN B SULFATE 10,000 UNIT-TRIMETHOPRIM 1 MG/ML EYE DROPS - AZITHROMYCIN 250 MG TABLET Laith Galarza APRN.MARKET INVESTIGATOR Medical Decision Making: Problems: Low: Acute, uncomplicated illness or injury Risk: Moderate: Drug management Medical Decision Making Level: 3 - Low [facility] 08-22-2023 Miscellaneous Notes Okayed Patient has been identified by name and date of : Yes, Provider Francisco Patient phones for refill(s): Requested Prescriptions Pending Prescriptions Disp Refills gabapentin (NEURONTIN) 300 mg capsule 270 capsule 3 Sig: Take 1 capsule by mouth three times a day. propranolol (INDERAL) 40 mg tablet 270 tablet 3 Sig: Take 1 tablet by mouth three times a day. metFORMIN (GLUCOPHAGE) 500 mg tablet 360 tablet 3 Sig: Take 2 tablets by mouth two times a day with meals. Date of last office visit in primary care: 05/18/2023 Date of next office visit in primary care: 09/18/2023 Please send today, she is out of Inderal. She stated that she needs ALL 3 due to [facility] had transferred them to the mail order and now she is going back to [facility], they need all three prescritpions. Please advise. Thank you. Jasmin Cobos. documented in this encounter [facility] 06-29-2023 Note HNO ID: [id number] Author: Shamika Martin APRN.STONECUTTER ASSISTANT Service: ? Author Type: Nurse Practitioner Type: Progress Notes Filed: 06/29/2023 3:18 PM Note Text: This note was created using [employer]. Subjective Twyla Escalona is a 63 year old female. 63 year old female with PMH COPD, DM, hyperlipidemia presents for illness. Acute onset of symptoms was one wek ago +cough +chest congestion +increased sputum production +yellow and green States off and on tobacco smoker More easily winded Denies fever or chills Denies using homeopathic or OTC Endorses she has misplaced her rescue inhaler. The history is provided by the patient. No speech language specialist was used. Cough This is a new problem. The current episode started more than 1 week ago. The problem occurs constantly. The problem has been gradually worsening. The cough is Productive of sputum. There has been no fever. Associated symptoms include shortness of breath and wheezing. Pertinent negatives include no chest pain, no chills, no sweats, no weight loss, no ear congestion, no ear pain, no headaches, no rhinorrhea, no sore throat, no myalgias and no eye redness. She has tried nothing for the symptoms. The treatment provided no relief. She is a smoker. Her past medical history is significant for COPD. Her past medical history does not include bronchitis, pneumonia, bronchiectasis, emphysema or asthma. PAST MEDICAL HISTORY Diagnosis Date ALCOHOL ABUSE-UNSPEC 08/07/2005 Ankylosing spondylitis (HCC) BIPOLAR DISORDER NOS 08/07/2005 Cervical high risk human papillomavirus (HPV) DNA test positive COPD (chronic obstructive pulmonary disease) (HCC) DEPRESSIVE DISORDER NEC 08/07/2005 Diabetes (HCC) History of cigarette smoking 04/09/2015 IRRITABLE COLON 08/07/2005 Mild dysplasia of cervix 2008 MITRAL VALVE DISORDER 08/07/2005 MYALGIA AND MYOSITIS NOS 08/07/2005 Papanicolaou smear of cervix with atypical squamous cells of undetermined significance (ASC-US) PAST SURGICAL HISTORY Procedure Laterality Date COLONOSCOPY FLX DX W/COLLJ SPEC WHEN PFRMD 01/06/2017 Colonoscopy /[facility] COLPOSCOPY CERVIX UPPER/ADJACENT VAGINA 2008 Colposcopy CONIZATION OF CERVIX; COLD KNIFE/LASER 2014 EXCISION BENIGN TUMOR/CYST 08/09/2019 EXPLORATORY LAPAROTOMY CELIOTOMY W/WO BIOPSY SPX 1998 Laparotomy, exp for endometriosis JOINT REPLACEMENT HX Right 2018 right knee KNEE ARTHROSCOPY/SURGERY Left 10/26 left knee replacement 08/27/09 OFFICE LEEP 2015 positive margins PAST SURGICAL HISTORY OF UMBILICAL HERNIA at 16 months age REGINALDO W/WO REMOVAL TUBE OVARY 2018 VAGINOSCOPY 2015 ALLERGIES Hydrocodone and Penicillins MEDICATIONS clonazePAM (KLONOPIN) 2 mg tablet Take 1 tablet by mouth two times a day as needed for up to 28 days. metFORMIN (GLUCOPHAGE) 500 mg tablet Take 2 tablets by mouth two times a day with meals. blood sugar diagnostic test strip One Touch test strips for patient's covered meter--Check 2 to 3 times daily (E11.9, Z79.4) Type 2 diabetes mellitus. Insulin: YES clindamycin (CLEOCIN-T) 1 % gel Apply to affected area two times a day. naproxen (NAPROSYN) 500 mg tablet Take 1 tablet by mouth two times a day as needed (for pain/inflammation). Take with food. venlafaxine ER (EFFEXOR XR) 150 mg 24 hr capsule Take 150 mg by mouth. venlafaxine ER (EFFEXOR XR) 150 mg 24 hr capsule One capsule twice daily atorvastatin (LIPITOR) 10 mg tablet Take 1 tablet by mouth once daily. omeprazole (PRILOSEC) 20 mg capsule Take 1 capsule by mouth once daily. Insulin Syringe-Needle U-100 0.5 mL 30 gauge x 1/2 1 Each once daily. and as needed. Use one syringe/needle for each dose gabapentin (NEURONTIN) 300 mg capsule Take 1 capsule by mouth three times daily. insulin NPH-insulin regular pen Inject 12 Units subcutaneously twice daily with meals. flash glucose sensor (FREESTYLE KIMBERLY 2 SENSOR) kit Apply new sensor every fourteen (14) days to upper arm.Type 2 diabetes mellitus without complication, with long-term current use of insulin (HCC) [E11.9, Z79.4] cyclobenzaprine (FLEXERIL) 10 mg tablet Take 1 tablet by mouth at bedtime as needed. FOR PAIN OR SPASMS propranolol (INDERAL) 40 mg tablet Take 1 tablet by mouth three times daily. insulin syr/ndl U100 half blane 0.5 mL 30 gauge x 1/2 syrg 1 Each once daily as needed. moxifloxacin (VIGAMOX) 0.5 % ophthalmic solution Use 1 Drop in the right eye four times daily. Please start 3 days prior to your surgical date keTORolac (ACULAR) 0.5 % ophthalmic solution Use 1 Drop in the right eye four times daily. Please start 3 days prior to your surgical date prednisoLONE acetate (PRED FORTE, ECONOPRED PLUS) 1 % ophthalmic suspension Use 1 Drop in the right eye four times daily. Please start 3 days prior to your surgical date albuterol HFA (VENTOLIN HFA) 90 mcg/actuation inhaler Inhale 2 Puffs as instructed every 4 hours as needed for wheezing/shortness of breath. cyanoc (more content not included)... [facility] 06-29-2023 Instructions Shamika Martin APRN.STONECUTTER ASSISTANT - 06/29/2023 3:11 PM EST RESPIRATORY INFECTION GENERAL INFORMATION: An upper respiratory tract infection, or cold, is a viral infection of the airway passages. It can be caused by any one of almost 200 different viruses. Common symptoms include a runny or stuffy nose, sneezing, watery eyes, sore throat, cough, and slight fever. Colds are contagious, especially during the first 3 or 4 days and cannot be cured by antibiotics. They are spread by coughs, sneezes, and direct contact, especially [id number]. A respiratory tract infection usually clears up in a few days, but some people may be sick for a week or two. INSTRUCTIONS: 1. Be careful not to blow your nose too hard because this may cause a nosebleed. 2. Use a cool-mist humidifier (vaporizer) to increase air moisture. This will make it easier for you to breathe. Do not use hot steam. 3. Rest as much as possible and get plenty of sleep. 4. Wash your hands often, especially after you blow your nose. Cover your mouth and nose with a tissue when you sneeze or cough. 5. Drink plenty of clear fluids (8 glasses a day) such as water, fruit juice, tea, clear soups, and carbonated beverages. CONTACT YOUR DOCTOR IF : 1. Your fever lasts more than 3 days. 2. You have a sore throat that gets worse or you see white or yellow spots in your throat. 3. Your cough gets worse or lasts more than 10 days. 4. You develop a rash anywhere on your skin. 5. You have an earache or a headache. 6. You have thick greenish or yellowish discharge from your nose. RETURN IMMEDIATELY IF: 1. You cough up thick yellow, green, bland, or bloody sputum. 2. You have difficulty breathing, pain in your chest, or your skin or nails look bland or blue. 3. You have shaking chills or a temperature over 102 F (39 C). documented in this encounter [facility] 06-29-2023 History of Present illness Narrative This note was created using NoteWriter. Subjective Twyla Escalona is a 63 year old female. 63 year old female with PMH COPD, DM, hyperlipidemia presents for illness. Acute onset of symptoms was one wek ago +cough +chest congestion +increased sputum production +yellow and green States off and on tobacco smoker More easily winded Denies fever or chills Denies using homeopathic or OTC Endorses she has misplaced her rescue inhaler. The history is provided by the patient. No speech language specialist was used. Cough This is a new problem. The current episode started more than 1 week ago. The problem occurs constantly. The problem has been gradually worsening. The cough is Productive of sputum. There has been no fever. Associated symptoms include shortness of breath and wheezing. Pertinent negatives include no chest pain, no chills, no sweats, no weight loss, no ear congestion, no ear pain, no headaches, no rhinorrhea, no sore throat, no myalgias and no eye redness. She has tried nothing for the symptoms. The treatment provided no relief. She is a smoker. Her past medical history is significant for COPD. Her past medical history does not include bronchitis, pneumonia, bronchiectasis, emphysema or asthma. PAST MEDICAL HISTORY Diagnosis Date ALCOHOL ABUSE-UNSPEC 08/07/2005 Ankylosing spondylitis (HCC) BIPOLAR DISORDER NOS 08/07/2005 Cervical high risk human papillomavirus (HPV) DNA test positive COPD (chronic obstructive pulmonary disease) (HCC) DEPRESSIVE DISORDER NEC 08/07/2005 Diabetes (HCC) History of cigarette smoking 04/09/2015 IRRITABLE COLON 08/07/2005 Mild dysplasia of cervix 2008 MITRAL VALVE DISORDER 08/07/2005 MYALGIA AND MYOSITIS NOS 08/07/2005 Papanicolaou smear of cervix with atypical squamous cells of undetermined significance (ASC-US) PAST SURGICAL HISTORY Procedure Laterality Date COLONOSCOPY FLX DX W/COLLJ SPEC WHEN PFRMD 01/06/2017 Colonoscopy /[facility] COLPOSCOPY CERVIX UPPER/ADJACENT VAGINA 2009 Colposcopy CONIZATION OF CERVIX; COLD KNIFE/LASER 2015 EXCISION BENIGN TUMOR/CYST 08/09/2019 EXPLORATORY LAPAROTOMY CELIOTOMY W/WO BIOPSY SPX 1998 Laparotomy, exp for endometriosis JOINT REPLACEMENT HX Right 2019 right knee KNEE ARTHROSCOPY/SURGERY Left 10/26 left knee replacement 08/27/09 OFFICE LEEP 2015 positive margins PAST SURGICAL HISTORY OF UMBILICAL HERNIA at 16 months age REGINALDO W/WO REMOVAL TUBE OVARY 2018 VAGINOSCOPY 2015 ALLERGIES Hydrocodone and Penicillins MEDICATIONS clonazePAM (KLONOPIN) 2 mg tablet Take 1 tablet by mouth two times a day as needed for up to 28 days. metFORMIN (GLUCOPHAGE) 500 mg tablet Take 2 tablets by mouth two times a day with meals. blood sugar diagnostic test strip One Touch test strips for patient's covered meter--Check 2 to 3 times daily (E11.9, Z79.4) Type 2 diabetes mellitus. Insulin: YES clindamycin (CLEOCIN-T) 1 % gel Apply to affected area two times a day. naproxen (NAPROSYN) 500 mg tablet Take 1 tablet by mouth two times a day as needed (for pain/inflammation). Take with food. venlafaxine ER (EFFEXOR XR) 150 mg 24 hr capsule Take 150 mg by mouth. venlafaxine ER (EFFEXOR XR) 150 mg 24 hr capsule One capsule twice daily atorvastatin (LIPITOR) 10 mg tablet Take 1 tablet by mouth once daily. omeprazole (PRILOSEC) 20 mg capsule Take 1 capsule by mouth once daily. Insulin Syringe-Needle U-100 0.5 mL 30 gauge x 1/2 1 Each once daily. and as needed. Use one syringe/needle for each dose gabapentin (NEURONTIN) 300 mg capsule Take 1 capsule by mouth three times daily. insulin NPH-insulin regular pen Inject 12 Units subcutaneously twice daily with meals. flash glucose sensor (FREESTYLE KIMBERLY 2 SENSOR) kit Apply new sensor every fourteen (14) days to upper arm.Type 2 diabetes mellitus without complication, with long-term current use of insulin (HCC) [E11.9, Z79.4] cyclobenzaprine (FLEXERIL) 10 mg tablet Take 1 tablet by mouth at bedtime as needed. FOR PAIN OR SPASMS propranolol (INDERAL) 40 mg tablet Take 1 tablet by mouth three times daily. insulin syr/ndl U100 half blane 0.5 mL 30 gauge x 1/2 syrg 1 Each once daily as needed. moxifloxacin (VIGAMOX) 0.5 % ophthalmic solution Use 1 Drop in the right eye four times daily. Please start 3 days prior to your surgical date keTORolac (ACULAR) 0.5 % ophthalmic solution Use 1 Drop in the right eye four times daily. Please start 3 days prior to your surgical date prednisoLONE acetate (PRED FORTE, ECONOPRED PLUS) 1 % ophthalmic suspension Use 1 Drop in the right eye four times daily. Please start 3 days prior to your surgical date albuterol HFA (VENTOLIN HFA) 90 mcg/actuation inhaler Inhale 2 Puffs as instructed every 4 hours as needed for wheezing/shortness of breath. cyanocobalamin (VITAMIN B-12) 100 mcg tab Take 100 mcg by mouth once daily. zinc sulfate (ZINC-15 ORAL) Take by mouth. Ascorbic Acid 1,000 mg tablet Take 1,000 mg by mouth once daily. Rpfvyekjkwtwv-Ctceyprv-Dkixci (MULTIVITAMIN 50 PLUS) tab Take 1 tablet by mouth once daily. Cholecalciferol, Vitamin D3, 5,000 unit cap Take 1 capsule by mouth once daily. Lancets (ThoughtBoxT[employer]CH ULTRASOFT LANCETS) lancets Use one lancet daily . Use as instructed dx. E 11.9 Blood-Glucose Meter (Gone!UCH ULTRA2) monitoring kit 1 Each as needed (Test 2-3 times a day or as needed). One Touch Meter Kit Diagnosis: Diabetes Mellitus aspirin, enteric coated 81 mg ORAL EC tablet doxycycline (VIBRA-TABS) 100 mg tablet Take 1 tablet by mouth two times a day for 10 days. methylPREDNISolone (MEDROL, HARSH,) 4 mg Dose-Pack Follow dosing instructions, take with food. albuterol HFA (PROVENTIL HFA, VENTOLIN HFA) 90 mcg/actuation inhaler Inhale 2 Puffs as instructed every 4 hours as needed for wheezing/shortness of breath. FAMILY HISTORY Adopted: Yes Problem Relation Age of Onset Arthritis Mother Rhematoid Asthma Mother Alcohol/Drug Mother Alcohol/Drug Sister other (patient adopted) Sister Alcohol/Drug Sister Alcohol/Drug Brother Alcohol abuse Brother Alcohol abuse Brother Social History Tobacco Use Smoking status: Some Days Packs/day: 0.20 Years: 15.00 Additional pack years: 0.00 Total pack years: 3.00 Types: Cigarettes Last attempt to quit: 07/11/2018 Years since quittin.9 Smokeless tobacco: Former Tobacco comments: Pt states she smokes 2-4 EVAP cigarettes. 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 HENT: Positive for congestion. Negative for ear pain, postnasal drip, rhinorrhea, sinus pressure, sinus pain and sore throat. Eyes: Negative for redness. Respiratory: Positive for cough, shortness of breath and wheezing. Negative for apnea and chest tightness. Cardiovascular: Negative for chest pain. Gastrointestinal: Negative for abdominal pain, diarrhea, nausea and vomiting. Musculoskeletal: Negative for arthralgias, back pain, gait problem and myalgias. Skin: Negative for color change, pallor, rash and wound. Allergic/Immunologic: Negative for environmental allergies, food allergies and immunocompromised state. Neurological: Negative for dizziness, facial asymmetry and headaches. Hematological: Negative for adenopathy. Does not bruise/bleed easily. Psychiatric/Behavioral: Negative for agitation and behavioral problems. Objective BP 118/78 Pulse 75 Temp 37.2 C (98.9 F) Resp 21 Wt 83.4 kg (183 lb 12.8 oz) LMP 02/14/2007 SpO2 99% BMI 30.12 kg/m Physical Exam Vitals and nursing note reviewed. Constitutional: General: She is not in acute distress. Appearance: Normal appearance. She is normal weight. She is not ill-appearing, toxic-appearing or diaphoretic. HENT: Head: Normocephalic and atraumatic. Right Ear: Ear canal and external ear normal. Left Ear: Ear canal and external ear normal. Nose: Congestion present. No rhinorrhea. Mouth/Throat: Mouth: Mucous membranes are moist. Pharynx: Posterior oropharyngeal erythema present. No oropharyngeal exudate. Eyes: General: Right eye: No discharge. Left eye: No discharge. Extraocular Movements: Extraocular movements intact. Conjunctiva/sclera: Conjunctivae normal. Pupils: Pupils are equal, round, and reactive to light. Cardiovascular: Rate and Rhythm: Normal rate and regular rhythm. Pulses: Normal pulses. Heart sounds: Normal heart sounds. No murmur heard. No friction rub. Pulmonary: Effort: Pulmonary effort is normal. No respiratory distress. Breath sounds: No stridor. Wheezing (expiratory wheezing noted) present. No rhonchi or rales. Comments: Decreased breath sounds Chest: Chest wall: No tenderness. Abdominal: General: Abdomen is flat. There is no distension. Palpations: Abdomen is soft. There is no mass. Tenderness: There is no abdominal tenderness. There is no right CVA tenderness, left CVA tenderness, guarding or rebound. Hernia: No hernia is present. Musculoskeletal: General: No swelling, tenderness, deformity or signs of injury. Normal range of motion. Cervical back: Normal range of motion and neck supple. No rigidity. Right lower leg: No edema. Left lower leg: No edema. Lymphadenopathy: Cervical: Cervical adenopathy present. Skin: General: Skin is warm and dry. Capillary Refill: Capillary refill takes less than 2 seconds. Coloration: Skin is not jaundiced or pale. Findings: No bruising, erythema, lesion or rash. Neurological: General: No focal deficit present. Mental Status: She is alert and oriented to person, place, and time. Cranial Nerves: No cranial nerve deficit. Sensory: No sensory deficit. Motor: No weakness. Coordination: Coordination normal. Gait: Gait normal. Psychiatric: Mood and Affect: Mood normal. Behavior: Behavior normal. Thought Content: Thought content normal. Judgment: Judgment normal. Assessment and Plan ASSESSMENT/PLAN: 1. COPD with exacerbation (HCC) - ICD9: 491.21, ICD10: J44.1 X one week No red flags RX Doxcy RX Medrol Dose Pack Refill Albuterol Inhaler Follow up with PCP for continued symptoms. Shamika Martin APRN.STONECUTTER ASSISTANT documented in this encounter [facility] 06-08-2023 Miscellaneous Notes The following approved medication requests have been transmitted electronically. Requested Prescriptions Signed Prescriptions Disp Refills clonazePAM (KLONOPIN) 2 mg tablet 56 tablet 0 Sig: Take 1 tablet by mouth two times a day as needed for up to 28 days. Authorizing Provider: GIANFRANCO SINGH MD AMIE: 05/18/2023 Last refill: 05/05/2023 QTY: 56 Refills: 0 Patient has been identified by name and date of : Yes Requested Prescriptions Pending Prescriptions Disp Refills clonazePAM (KLONOPIN) 2 mg tablet 56 tablet 0 Sig: Take 1 tablet by mouth two times a day as needed for up to 28 days. RX INSTRUCTIONS: Out of medication. Please send today. Patient aware RX will be sent to pharmacy. No need to notify patient. Jasmin Gloria Pss documented in this encounter [facility] 05-18-2023 Miscellaneous Notes Completed form faxed to [employer]. Left detailed message for patient that form has been completed and faxed. Completed. [employer] form received at this time and on Saul Omer desk for signature. Called and left a voicemail for the Patient to call back and ask for a nurse to receive the providers message. Need to let the Pt know that [employer] form has not been faxed to providers office yet. Zaria Mao, ASAD This has not been received yet to my knowledge. Continuing to wait on form Was this received? Pt called in and report [employer] is going to be faxing over a sheet to providers office for them to keep from shutting off Pts electricity. She states she has chronic bronchitis and right now it feels like it is going into her chest. She reports that sometimes she needs to use her breathing machine for treatments, and that requires electricity. Please fax back as soon as possible. documented in this encounter [facility] 05-18-2023 Note HNO ID: [id number] Author: Saul Omer APRN.ODILON Service: ? Author Type: Nurse Practitioner Type: Progress Notes Filed: 05/18/2023 4:47 PM Note Text: SUBJECTIVE Twyla Escalona is a 62 year old female here today for a check up on her medical problems. Chief Complaint Patient presents with: Medication Follow-up Immunizations: Flu vaccination HPI Twyla Escalona is a 62 year old female. Here today for follow up. Some stress in life but mentally doing okay, managing. Finds support spiritually. Concerns of cellulitis/abscesses off and on to groin area, cystic acne to her face. Checking sugars and trying to keep blood sugars well controlled. Would like flu and covid vaccines. Okay with labs. Her medications were reviewed today and her list is now up to date. Medications Current Outpatient Medications Medication Sig clonazePAM (KLONOPIN) 2 mg tablet Take 1 tablet by mouth two times a day as needed for up to 28 days. naproxen (NAPROSYN) 500 mg tablet Take 1 tablet by mouth two times a day as needed (for pain/inflammation). Take with food. metFORMIN (GLUCOPHAGE) 500 mg tablet Take two metformin with breakfast, one with dinner venlafaxine ER (EFFEXOR XR) 150 mg 24 hr capsule One capsule twice daily atorvastatin (LIPITOR) 10 mg tablet Take 1 tablet by mouth once daily. omeprazole (PRILOSEC) 20 mg capsule Take 1 capsule by mouth once daily. Insulin Syringe-Needle U-100 0.5 mL 30 gauge x 1/2 1 Each once daily. and as needed. Use one syringe/needle for each dose gabapentin (NEURONTIN) 300 mg capsule Take 1 capsule by mouth three times daily. insulin NPH-insulin regular pen Inject 12 Units subcutaneously twice daily with meals. flash glucose sensor (FREESTYLE KIMBERLY 2 SENSOR) kit Apply new sensor every fourteen (14) days to upper arm.Type 2 diabetes mellitus without complication, with long-term current use of insulin (HCC) [E11.9, Z79.4] cyclobenzaprine (FLEXERIL) 10 mg tablet Take 1 tablet by mouth at bedtime as needed. FOR PAIN OR SPASMS propranolol (INDERAL) 40 mg tablet Take 1 tablet by mouth three times daily. insulin syr/ndl U100 half blane 0.5 mL 30 gauge x 1/2 syrg 1 Each once daily as needed. moxifloxacin (VIGAMOX) 0.5 % ophthalmic solution Use 1 Drop in the right eye four times daily. Please start 3 days prior to your surgical date keTORolac (ACULAR) 0.5 % ophthalmic solution Use 1 Drop in the right eye four times daily. Please start 3 days prior to your surgical date prednisoLONE acetate (PRED FORTE, ECONOPRED PLUS) 1 % ophthalmic suspension Use 1 Drop in the right eye four times daily. Please start 3 days prior to your surgical date albuterol HFA (VENTOLIN HFA) 90 mcg/actuation inhaler Inhale 2 Puffs as instructed every 4 hours as needed for wheezing/shortness of breath. cyanocobalamin (VITAMIN B-12) 100 mcg tab Take 100 mcg by mouth once daily. zinc sulfate (ZINC-15 ORAL) Take by mouth. Ascorbic Acid 1,000 mg tablet Take 1,000 mg by mouth once daily. Sauasplwqoqlm-Ukfxuawh-Mbgfxp (MULTIVITAMIN 50 PLUS) tab Take 1 tablet by mouth once daily. Cholecalciferol, Vitamin D3, 5,000 unit cap Take 1 capsule by mouth once daily. Lancets (ONETOUCH ULTRASOFT LANCETS) lancets Use one lancet daily . Use as instructed dx. E 11.9 Blood-Glucose Meter (ONETOUCH ULTRA2) monitoring kit 1 Each as needed (Test 2-3 times a day or as needed). One Touch Meter Kit Diagnosis: Diabetes Mellitus aspirin, enteric coated 81 mg ORAL EC tablet blood sugar diagnostic test strip One Touch test strips for patient's covered meter--Check 2 to 3 times daily (E11.9, Z79.4) Type 2 diabetes mellitus. Insulin: YES clindamycin (CLEOCIN-T) 1 % gel Apply to affected area two times a day. venlafaxine ER (EFFEXOR XR) 150 mg 24 hr capsule Take 150 mg by mouth. No current facility-administered medications for this visit. ALLERGIES Allergen Reactions Hydrocodone GI Upset Penicillins Hives, GI Upset ACTIVE PROBLEM LIST Acute Mid Back Pain - 09/24/2022 Glaucoma Suspect of Both Eyes - 02/26/2022 Vitamin D Deficiency - 03/01/2018 Dyslipidemia Associated With Type 2 Diabetes Mellitus ([facility]) - 04/28/2017 Dilated Cbd, Acquired - 08/29/2016 Tbi (Traumatic Brain Injury) ([facility]) - 05/07/2015 Chronic Post-Traumatic Stress Disorder - 05/07/2015 Ankylosing Spondylitis ([facility]) - 01/23/2015 Displacement of Lumbar Intervertebral Disc Without Myelopathy - 10/07/2012 Sciatica - 10/07/2012 Dm (Diabetes Mellitus) ([facility]) - 09/27/2012 Copd (Chronic Obstructive Pulmonary Disease) ([facility]) Chondromalacia of Patella - 10/06/2008 Other and Unspecified Derangement of Medial Meniscus - 10/06/2008 Depressive Disorder - 08/07/2005 Mitral Valve Disorders(424.0) - 08/07/2005 Irritable Bowel Syndrome - 08/07/2005 Bipolar Disorder, Unspecified ([facility]) - 08/07/2005 History of Alcohol Dependence ([facility]) - 08/07/2005 Social History Tobacco Use Smoking status: Some Days Packs/day: 0.20 Years: 15.00 (more content not included)... [facility] 05-18-2023 History of Present illness Narrative SUBJECTIVE Twyla Escalona is a 62 year old female here today for a check up on her medical problems. Chief Complaint Patient presents with: Medication Follow-up Immunizations: Flu vaccination HPI Twyla Escalona is a 62 year old female. Here today for follow up. Some stress in life but mentally doing okay, managing. Finds support spiritually. Concerns of cellulitis/abscesses off and on to groin area, cystic acne to her face. Checking sugars and trying to keep blood sugars well controlled. Would like flu and covid vaccines. Okay with labs. Her medications were reviewed today and her list is now up to date. Medications Current Outpatient Medications Medication Sig clonazePAM (KLONOPIN) 2 mg tablet Take 1 tablet by mouth two times a day as needed for up to 28 days. naproxen (NAPROSYN) 500 mg tablet Take 1 tablet by mouth two times a day as needed (for pain/inflammation). Take with food. metFORMIN (GLUCOPHAGE) 500 mg tablet Take two metformin with breakfast, one with dinner venlafaxine ER (EFFEXOR XR) 150 mg 24 hr capsule One capsule twice daily atorvastatin (LIPITOR) 10 mg tablet Take 1 tablet by mouth once daily. omeprazole (PRILOSEC) 20 mg capsule Take 1 capsule by mouth once daily. Insulin Syringe-Needle U-100 0.5 mL 30 gauge x 1/2 1 Each once daily. and as needed. Use one syringe/needle for each dose gabapentin (NEURONTIN) 300 mg capsule Take 1 capsule by mouth three times daily. insulin NPH-insulin regular pen Inject 12 Units subcutaneously twice daily with meals. flash glucose sensor (FREESTYLE KIMBERLY 2 SENSOR) kit Apply new sensor every fourteen (14) days to upper arm.Type 2 diabetes mellitus without complication, with long-term current use of insulin (HCC) [E11.9, Z79.4] cyclobenzaprine (FLEXERIL) 10 mg tablet Take 1 tablet by mouth at bedtime as needed. FOR PAIN OR SPASMS propranolol (INDERAL) 40 mg tablet Take 1 tablet by mouth three times daily. insulin syr/ndl U100 half blane 0.5 mL 30 gauge x 1/2 syrg 1 Each once daily as needed. moxifloxacin (VIGAMOX) 0.5 % ophthalmic solution Use 1 Drop in the right eye four times daily. Please start 3 days prior to your surgical date keTORolac (ACULAR) 0.5 % ophthalmic solution Use 1 Drop in the right eye four times daily. Please start 3 days prior to your surgical date prednisoLONE acetate (PRED FORTE, ECONOPRED PLUS) 1 % ophthalmic suspension Use 1 Drop in the right eye four times daily. Please start 3 days prior to your surgical date albuterol HFA (VENTOLIN HFA) 90 mcg/actuation inhaler Inhale 2 Puffs as instructed every 4 hours as needed for wheezing/shortness of breath. cyanocobalamin (VITAMIN B-12) 100 mcg tab Take 100 mcg by mouth once daily. zinc sulfate (ZINC-15 ORAL) Take by mouth. Ascorbic Acid 1,000 mg tablet Take 1,000 mg by mouth once daily. Clmsosgsaqnyb-Dfzitgsy-Urttoo (MULTIVITAMIN 50 PLUS) tab Take 1 tablet by mouth once daily. Cholecalciferol, Vitamin D3, 5,000 unit cap Take 1 capsule by mouth once daily. Lancets (ONETOUCH ULTRASOFT LANCETS) lancets Use one lancet daily . Use as instructed dx. E 11.9 Blood-Glucose Meter (ONETOUCH ULTRA2) monitoring kit 1 Each as needed (Test 2-3 times a day or as needed). One Touch Meter Kit Diagnosis: Diabetes Mellitus aspirin, enteric coated 81 mg ORAL EC tablet blood sugar diagnostic test strip One Touch test strips for patient's covered meter--Check 2 to 3 times daily (E11.9, Z79.4) Type 2 diabetes mellitus. Insulin: YES clindamycin (CLEOCIN-T) 1 % gel Apply to affected area two times a day. venlafaxine ER (EFFEXOR XR) 150 mg 24 hr capsule Take 150 mg by mouth. No current facility-administered medications for this visit. ALLERGIES Allergen Reactions Hydrocodone GI Upset Penicillins Hives, GI Upset ACTIVE PROBLEM LIST Acute Mid Back Pain - 09/24/2022 Glaucoma Suspect of Both Eyes - 02/26/2022 Vitamin D Deficiency - 03/01/2018 Dyslipidemia Associated With Type 2 Diabetes Mellitus ([facility]) - 04/28/2017 Dilated Cbd, Acquired - 08/29/2016 Tbi (Traumatic Brain Injury) ([facility]) - 05/07/2015 Chronic Post-Traumatic Stress Disorder - 05/07/2015 Ankylosing Spondylitis ([facility]) - 01/23/2015 Displacement of Lumbar Intervertebral Disc Without Myelopathy - 10/07/2012 Sciatica - 10/07/2012 Dm (Diabetes Mellitus) ([facility]) - 09/27/2012 Copd (Chronic Obstructive Pulmonary Disease) ([facility]) Chondromalacia of Patella - 10/06/2008 Other and Unspecified Derangement of Medial Meniscus - 10/06/2008 Depressive Disorder - 08/07/2005 Mitral Valve Disorders(424.0) - 08/07/2005 Irritable Bowel Syndrome - 08/07/2005 Bipolar Disorder, Unspecified ([facility]) - 08/07/2005 History of Alcohol Dependence ([facility]) - 08/07/2005 Social History Tobacco Use Smoking status: Some Days Packs/day: 0.20 Years: 15.00 Additional pack years: 0.00 Total pack years: 3.00 Types: Cigarettes Last attempt to quit: 07/11/2018 Years since quittin.8 Smokeless tobacco: Former Tobacco comments: Pt states she smokes 2-4 EVAP cigarettes. Vaping Use Vaping Use: Never used Substance Use Topics Alcohol use: No Comment: recovering alcoholic- sober as of 01/15/2006 Drug use: No Comment: cocaine- sober as of 01/15/2006 Review of Systems Respiratory: Negative. Cardiovascular: Negative. OBJECTIVE BP 114/80 Pulse 76 Resp 20 Wt 180 lb 1.6 oz (81.7kg) LMP 02/14/2007 Physical Exam Vitals and nursing note reviewed. Constitutional: General: She is awake. She is not in acute distress. Appearance: Normal appearance. She is well-developed and well-groomed. She is not ill-appearing, toxic-appearing or diaphoretic. HENT: Head: Normocephalic. Right Ear: External ear normal. Left Ear: External ear normal. Nose: Nose normal. Eyes: General: Vision grossly intact. Conjunctiva/sclera: Conjunctivae normal. Pupils: Pupils are equal, round, and reactive to light. Neck: Vascular: No JVD. Trachea: Trachea normal. Cardiovascular: Rate and Rhythm: Normal rate and regular rhythm. Pulses: Normal pulses. Heart sounds: Normal heart sounds. No murmur heard. Pulmonary: Effort: Pulmonary effort is normal. No accessory muscle usage, prolonged expiration or respiratory distress. Breath sounds: Normal breath sounds. Musculoskeletal: Cervical back: Neck supple. Skin: General: Skin is warm and dry. Capillary Refill: Capillary refill takes less than 2 seconds. Comments: Arm pits and groin with scattered areas of firmness under the skin and areas of healing Neurological: General: No focal deficit present. Mental Status: She is alert and oriented to person, place, and time. Mental status is at baseline. Psychiatric: Attention and Perception: Attention and perception normal. Mood and Affect: Mood and affect normal. Speech: Speech normal. Behavior: Behavior normal. Behavior is cooperative. Thought Content: Thought content normal. Cognition and Memory: Cognition and memory normal. Judgment: Judgment normal. ASSESSMENT/PLAN: 1. Type 2 diabetes mellitus without complication, with long-term current use of insulin (HCC) - ICD9: 250.00, V58.67, ICD10: E11.9, Z79.4 (primary diagnosis) - Control undetermined, due for labs - Continue current medications - Counseled on healthy diet and regular exercise - Discussed need for and benefit of weight loss. BMI 29.51 kg/(m^2) - BLOOD SUGAR DIAGNOSTIC STRIPS - HGB A1C 2. Hidradenitis suppurativa - ICD9: 705.83, ICD10: L73.2 - CLINDAMYCIN 1 % TOPICAL GEL 3. Bipolar disorder, in partial remission, most recent episode depressed (HCC) - ICD9: 296.55, ICD10: F31.75 Stable 4. Dyslipidemia associated with type 2 diabetes mellitus (HCC) - ICD9: 250.80, 272.4, ICD10: E11.69, E78.5 5. Encounter for therapeutic drug monitoring - ICD9: V58.83, ICD10: Z51.81 - CBC + DIFF - COMP METABOLIC PANEL 6. Encounter for immunization - ICD9: V03.89, ICD10: Z23 - PFIZER-BIONTOsmopure COVID-19 VACCINE (2022- [place]) AGE 12+ YR 7. Need for influenza vaccination - ICD9: V04.81, ICD10: Z23 - INFLUENZA VACCINE, AGE 6 MO - 64 YR, QUADRIVALENT (AFLURIA, FLULAVAL, FLUZONE) Portions of this note have been entered by ancillary staff. I have reviewed and when necessary edited, so that they are an adequate record of my encounter with this patient Please note that parts of this document were created using voice recognition software and therefore may contain grammatical errors. Patient verbalizes understanding of instructions from today's visit and in agreement with treatment plan. Questions answered. Agrees to call the office if questions, concerns of issues with acute symptoms not improving or if they worsen. See diagnoses and orders for additional plan(s). Allergies and medications were reviewed, list was updated, and refills given if needed. Past medical, surgical, social, and family history reviewed and updated as appropriate. Encouraged proper diet & exercise as well as compliance with taking medications. Age-appropriate health preventative measures were discussed. Return in about 4 months (around 09/17/2023) for Follow up on chronic conditions and medications.. Saul Omer APRN-ODILON documented in this encounter [facility] 05-07-2023 Miscellaneous Notes Noted. Equivalent N insulin given, so no problem. Lbane pharmacist from [facility] calling as his pharmacy took over pt's prescriptions. He wanted to let Dr. Singh know that they pulled her insulin script from and per that RX, the pt was supposed to be receiving Humulin but accidentally through [facility] it was filled with Novolin. This happened awhile ago. He states they have to contact the provider just to make them aware and he will be calling pt as well. (Per medication list, the pt's insulin is ordered as insulin NPH-insulin regular pen). No designation of Novolin or Humulin. documented in this encounter [facility] 05-05-2023 Miscellaneous Notes Spoke with pt and information listed below given. Pt scheduled for an apt on 05-08-23. Dominique Arellano LPN\ Needs follow up appointment Multiple no shows for PT, eye doctor and me since last seen. Saw Laith in September 2022. Last saw me 06/04/21. Missed April 27 appointment with me that had been scheduled in September, If cannot make follow up at least every 6 months, will need to taper off medication per [facility] protocol for this type of controlled substance (benzodiazepine). Cannot find up to date Controlled Substance Agreement--recommend sign another one while in for follow up. Noted last 2 Rxs lasted longer than 30 days so looks like not having to take 2mg daily which is good. Given 4 weeks supply to last till able to get in for appointment in next 4 weeks since has been more than 6 months since last appointment but do not want her going through withdrawal from being without med. Can see Saul Hines or me. The following approved medication requests have been transmitted electronically. Requested Prescriptions Signed Prescriptions Disp Refills clonazePAM (KLONOPIN) 2 mg tablet 56 tablet 0 Sig: Take 1 tablet by mouth two times a day as needed for up to 28 days. Authorizing Provider: GIANFRANCO SINGHas, MD Patient calls and states that prescription has . Patient asking if provider can send new prescription? Date of last office: 09/22/2022 Date of next office visit: None Requested Prescriptions Pending Prescriptions Disp Refills clonazePAM (KLONOPIN) 2 mg tablet 60 tablet 3 Sig: Take 1 tablet by mouth two times a day as needed for up to 120 days. Date of Last Labs: 09/22/2022 Please advise. Thank you. Irma Webb RN. documented in this encounter [facility] 04-23-2023 Miscellaneous Notes Pt notified. Beatrice Mojica RN Okayed Patient calling to check on status of refill request. Pt has been out of medication for 2 days now and blood sugars are elevated into the 200-300's. Please call pt once medication has been sent to pharmacy. Thank you. Patient has been identified by name and date of : Yes Last office visit in this department: Visit date not found RX INSTRUCTIONS: Patient aware RX will be sent to pharmacy. No need to notify patient. Patient phones requesting refills as follows: Requested Prescriptions Pending Prescriptions Disp Refills metFORMIN (GLUCOPHAGE) 500 mg tablet 270 tablet 3 Sig: Take two metformin with breakfast, one with dinner Please review and advise. Cat Frederick documented in this encounter [facility] 04-06-2023 Miscellaneous Notes Patient has been identified by name and date of : Yes Patient phones for refill(s): Requested Prescriptions Pending Prescriptions Disp Refills venlafaxine ER (EFFEXOR XR) 150 mg 24 hr capsule 180 capsule 3 Sig: One capsule twice daily atorvastatin (LIPITOR) 10 mg tablet 90 tablet 3 Sig: Take 1 tablet by mouth once daily. omeprazole (PRILOSEC) 20 mg capsule 90 capsule 3 Sig: Take 1 capsule by mouth once daily. Insulin Syringe-Needle U-100 0.5 mL 30 gauge x 1/2 100 Each 3 Si Each once daily. and as needed. Use one syringe/needle for each dose Date of last office visit in primary care: 09/22/2022 6 month follow-up: 04/27/2023 Last 2 Encounter Wt Readings: Date: Wt: 12/12/2022 82.6 kg (182 lb) 10/07/2022 81.2 kg (179 lb) Previous labs/tests for medication: Diabetes: Hemoglobin A1C (%) Date Value 09/22/2022 7.3 01/08/2022 7.2 11/20/2020 7.3 04/18/2020 7.9 Cholesterol: HDL Cholesterol (mg/dL) Date Value 09/22/2022 43 12/24/2018 40 HDL Cholesterol, Nonfasting (mg/dL) Date Value 11/20/2020 38 LDL Cholesterol (mg/dL) Date Value 09/22/2022 58 12/24/2018 42 LDL Cholesterol, Nonfasting (mg/dL) Date Value 01/08/2022 37 11/20/2020 76 ALT (U/L) Date Value 09/22/2022 16 11/20/2020 20 Non HDL Cholesterol, Nonfasting (mg/dL) Date Value 11/20/2020 138 Non HDL Cholesterol (mg/dL) Date Value 09/22/2022 99 Please advise. Thank you. Liza Renee LPN Patient has been identified by name and date of : Yes Last office visit in this department: Visit date not found RX INSTRUCTIONS: Patient aware RX will be sent to pharmacy. No need to notify patient. Patient phones requesting refills as follows: Requested Prescriptions Pending Prescriptions Disp Refills venlafaxine ER (EFFEXOR XR) 150 mg 24 hr capsule 180 capsule 3 Sig: One capsule twice daily atorvastatin (LIPITOR) 10 mg tablet 90 tablet 3 Sig: Take 1 tablet by mouth once daily. omeprazole (PRILOSEC) 20 mg capsule 90 capsule 3 Sig: Take 1 capsule by mouth once daily. Insulin Syringe-Needle U-100 0.5 mL 30 gauge x 1/2 100 Each 3 Si Each once daily. and as needed. Use one syringe/needle for each dose Please review and advise. Vance Jara documented in this encounter [facility] 04-02-2023 Miscellaneous Notes Fax rec'd from [employer] for 30 day medical certification. This has been completed and faxed back. documented in this encounter [facility] 03-17-2023 Miscellaneous Notes Qi with [employer] (works with pt's insurance) calls to report records show that pt is getting atorvastatin 10 mg #30 each month but has not had a refill since December,. Qi called to ask if pt was taken off medication or if office knew why pt was not refilling med. Tried to call pt but recording stated pt was not able to take calls. Rosemary Vincent LPN documented in this encounter [facility] 01-15-2023 Miscellaneous Notes The following approved medication requests have been transmitted electronically. Requested Prescriptions Signed Prescriptions Disp Refills clonazePAM (KLONOPIN) 2 mg tablet 60 tablet 3 Sig: Take 1 tablet by mouth twice daily as needed for up to 120 days. Do not start before January 19, 2023. Authorizing Provider: GIANFRANCO SINGH MD Patient has been identified by name and date of : Yes, Provider Date Time Patient phones for refill(s): Requested Prescriptions Pending Prescriptions Disp Refills clonazePAM (KLONOPIN) 2 mg tablet 60 tablet 5 Sig: Take 1 tablet by mouth twice daily as needed for up to 30 days. Date of last office visit with pcp: Date of last office visit in primary care: 09/22/22 Last 2 Encounter Wt Readings: Date: Wt: 12/12/2022 82.6 kg (182 lb) 10/07/2022 81.2 kg (179 lb) Previous labs/tests for medication: Not applicable Please advise. Thank you. Maribel Cobos RN documented in this encounter [facility] 01-01-2023 Miscellaneous Notes Left message for Patient to call & speak to nurse re: refills needed. Liza Renee LPN Noa from [facility] calls and is asking for prescription refills for patient. Per Noa patient has been getting medications for them since October. There is no record of this on our end. Called and left message for patient to call can confirm that she wants prescriptions sent to [facility]. Irma Webb RN documented in this encounter [facility] 12-12-2022 Note HNO ID: [id number] Author: Artur Montgomery APRN.STONECUTTER ASSISTANT Service: ? Author Type: Nurse Practitioner Type: Progress Notes Filed: 12/12/2022 2:39 PM Note Text: Subjective HPI Nontoxic-appearing female presents urgent care chief complaint eye pain and redness. Duration of symptoms 1 day. Associated symptoms eye pain redness discharge. States was around grandchild and child who were diagnosed with pinkeye. Presents today for evaluation. No foreign body sensation. States she does have photophobia. States she does have sharp eye pain at times. Rates it 9 out of 10. States vision is slightly blurred. Denies any fever body aches chills productive cough chest pain shortness of breath pleuritic pain hemoptysis nausea vomiting abdominal pain change in bowel or bladder habits. Past medical history prescription medication use and allergies reviewed. .Patient presents with: Eye Problem: Bilateral red and irritated eyes x 1 day PAST MEDICAL HISTORY Diagnosis Date ALCOHOL ABUSE-UNSPEC 08/07/2005 Ankylosing spondylitis ([facility]) BIPOLAR DISORDER NOS 08/07/2005 Cervical high risk human papillomavirus (HPV) DNA test positive COPD (chronic obstructive pulmonary disease) ([facility]) DEPRESSIVE DISORDER NEC 08/07/2005 Diabetes ([facility]) History of cigarette smoking 04/09/2015 IRRITABLE COLON 08/07/2005 Mild dysplasia of cervix 2008 MITRAL VALVE DISORDER 08/07/2005 MYALGIA AND MYOSITIS NOS 08/07/2005 Papanicolaou smear of cervix with atypical squamous cells of undetermined significance (ASC-US) PAST SURGICAL HISTORY Procedure Laterality Date COLONOSCOPY FLX DX W/COLLJ SPEC WHEN PFRMD 01/06/2017 Colonoscopy /[facility] COLPOSCOPY CERVIX UPPER/ADJACENT VAGINA 2008 Colposcopy CONIZATION OF CERVIX; COLD KNIFE/LASER 2014 EXCISION BENIGN TUMOR/CYST 08/09/2019 EXPLORATORY LAPAROTOMY CELIOTOMY W/WO BIOPSY SPX 1998 Laparotomy, exp for endometriosis JOINT REPLACEMENT HX Right 2018 right knee KNEE ARTHROSCOPY/SURGERY Left 10/26 left knee replacement 08/27/09 OFFICE LEEP 2015 positive margins PAST SURGICAL HISTORY OF UMBILICAL HERNIA at 16 months age REGINALDO W/WO REMOVAL TUBE OVARY 2018 VAGINOSCOPY 2015 ALLERGIES Hydrocodone and Penicillins MEDICATIONS naproxen (NAPROSYN) 500 mg tablet Take 1 tablet by mouth twice daily as needed (for pain/inflammation). Take with food. insulin NPH-insulin regular pen Inject 12 Units subcutaneously twice daily with meals. flash glucose sensor (FREESTYLE KIMBERLY 2 SENSOR) kit Apply new sensor every fourteen (14) days to upper arm.Type 2 diabetes mellitus without complication, with long-term current use of insulin ([facility]) [E11.9, Z79.4] cyclobenzaprine (FLEXERIL) 10 mg tablet Take 1 tablet by mouth at bedtime as needed. FOR PAIN OR SPASMS propranolol (INDERAL) 40 mg tablet Take 1 tablet by mouth three times daily. insulin syr/ndl U100 half blane 0.5 mL 30 gauge x 1/2 syrg 1 Each once daily as needed. atorvastatin (LIPITOR) 10 mg tablet Take 1 tablet by mouth once daily. moxifloxacin (VIGAMOX) 0.5 % ophthalmic solution Use 1 Drop in the right eye four times daily. Please start 3 days prior to your surgical date keTORolac (ACULAR) 0.5 % ophthalmic solution Use 1 Drop in the right eye four times daily. Please start 3 days prior to your surgical date prednisoLONE acetate (PRED FORTE, ECONOPRED PLUS) 1 % ophthalmic suspension Use 1 Drop in the right eye four times daily. Please start 3 days prior to your surgical date venlafaxine ER (EFFEXOR XR) 150 mg 24 hr capsule One capsule twice daily blood sugar diagnostic test strip One Touch test strips for patient's covered meter--Check 2 to 3 times daily (E11.9, Z79.4) Type 2 diabetes mellitus. Insulin: YES metFORMIN (GLUCOPHAGE) 500 mg tablet Take two metformin with breakfast, one with dinner omeprazole (PRILOSEC) 20 mg capsule Take 1 capsule by mouth once daily. albuterol HFA (VENTOLIN HFA) 90 mcg/actuation inhaler Inhale 2 Puffs as instructed every 4 hours as needed for wheezing/shortness of breath. Insulin Syringe-Needle U-100 0.5 mL 30 gauge x 1/2 1 Each once daily. and as needed. Use one syringe/needle for each dose gabapentin (NEURONTIN) 300 mg capsule Take 1 capsule by mouth three times daily. cyanocobalamin (VITAMIN B-12) 100 mcg tab Take 100 mcg by mouth once daily. zinc sulfate (ZINC-15 ORAL) Take by mouth. Ascorbic Acid 1,000 mg tablet Take 1,000 mg by mouth once daily. Butrjkqtprwlc-Dftxesna-Psjaio (MULTIVITAMIN 50 PLUS) tab Take 1 tablet by mouth once daily. Cholecalciferol, Vitamin D3, 5,000 unit cap Take 1 capsule by mouth once daily. Lancets (ONETOUCH ULTRASOFT LANCETS) lancets Use one lancet daily . Use as instructed dx. E 11.9 Blood-Glucose Meter (ThoughtBoxTOUCH ULTRA2) monitoring kit 1 Each as needed (Test 2-3 times a day or as needed). One Touch Meter Kit Diagnosis: Diabetes Mellitus aspirin, enteric coated 81 mg ORAL EC tablet clonazePAM (KLONOPIN) 2 mg tablet Take 1 tablet (more content not included)... [facility] 10-20-2022 Miscellaneous Notes Patient aware the prescriptions escripted to [facility]. Serenity León LPN The following approved medication requests have been transmitted electronically. Requested Prescriptions Signed Prescriptions Disp Refills clonazePAM (KLONOPIN) 2 mg tablet 60 tablet 5 Sig: Take 1 tablet by mouth twice daily as needed for up to 30 days. Authorizing Provider: GIANFRANCO SINGH naproxen (NAPROSYN) 500 mg tablet 180 tablet 0 Sig: Take 1 tablet by mouth twice daily as needed (for pain/inflammation). Take with food. Authorizing Provider: GIANFRANCO SINGH insulin NPH-insulin regular pen 30 mL 3 Sig: Inject 12 Units subcutaneously twice daily with meals. Authorizing Provider: GIANFRANCO SINGH MD Noted did see Laith in September and has 6 month follow up scheduled already. For future reference she needs to know to call for refills if going to run out in less than 3 days from when sends RX request. Hope can avoid needs for calling in by having future refills taken care of during appointments so lasts till the next follow up. Pt reports she hasn't had her Klonopin in 2 days and is starting to have withdrawal s/s: shaky and doesn't think she can drive, will have to have her son pick it up. Reports she ran out of insulin today- did have today's dose. Patient agreeable to ER if s/s worsen. Patient is calling and stated she must have the medication today. Please send today and call her. Patient said she only has 1 pill of clonazepam left. If she doesn't have it, she has seizures. Wants to know if it can be sent today. Patient has been identified by name and date of : Yes Requested Prescriptions Pending Prescriptions Disp Refills clonazePAM (KLONOPIN) 2 mg tablet 60 tablet 0 Sig: Take 1 tablet by mouth twice daily as needed for up to 30 days. naproxen (NAPROSYN) 500 mg tablet 180 tablet 0 Sig: Take 1 tablet by mouth twice daily as needed (for pain/inflammation). Take with food. insulin NPH-insulin regular pen 30 mL 3 Sig: Inject 12 Units subcutaneously twice daily with meals. RX INSTRUCTIONS: Patient aware RX will be sent to pharmacy. No need to notify patient. Luz Andrade Pss documented in this encounter [facility] 10-07-2022 Note HNO ID: [id number] Author: Zainab Ramirez APRN.STONECUTTER ASSISTANT Service: ? Author Type: Nurse Practitioner Type: Progress Notes Filed: 10/07/2022 4:57 PM Note Text: Pet Ambassador offered: Patient declines. Twyla is a 62 year old who presents for an annual gynecologic exam without complaints. Had been caring for ill mother which prevented her keeping up on her heatlh. Postmenopausal: REGINALDO with BSO 2018 at [facility] for abnormal cervical cells HRT use: No. 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 History Comments: Sexual Activity: Yes; Male; postmenopausal Contraception: PAST MEDICAL HISTORY Diagnosis Date ALCOHOL ABUSE-UNSPEC 08/07/2005 Ankylosing spondylitis ([facility]) BIPOLAR DISORDER NOS 08/07/2005 Cervical high risk human papillomavirus (HPV) DNA test positive COPD (chronic obstructive pulmonary disease) ([facility]) DEPRESSIVE DISORDER NEC 08/07/2005 Diabetes ([facility]) History of cigarette smoking 04/09/2015 IRRITABLE COLON 08/07/2005 Mild dysplasia of cervix 2008 MITRAL VALVE DISORDER 08/07/2005 MYALGIA AND MYOSITIS NOS 08/07/2005 Papanicolaou smear of cervix with atypical squamous cells of undetermined significance (ASC-US) PAST SURGICAL HISTORY Procedure Laterality Date COLONOSCOPY FLX DX W/COLLJ SPEC WHEN PFRMD 01/06/2017 Colonoscopy /[facility] COLPOSCOPY CERVIX UPPER/ADJACENT VAGINA 2008 Colposcopy CONIZATION OF CERVIX; COLD KNIFE/LASER 2014 EXCISION BENIGN TUMOR/CYST 08/09/2019 EXPLORATORY LAPAROTOMY CELIOTOMY W/WO BIOPSY SPX 1998 Laparotomy, exp for endometriosis JOINT REPLACEMENT HX Right 2018 right knee KNEE ARTHROSCOPY/SURGERY Left 10/26 left knee replacement 08/27/09 OFFICE LEEP 2015 positive margins PAST SURGICAL HISTORY OF UMBILICAL HERNIA at 16 months age REGINALDO W/WO REMOVAL TUBE OVARY 2018 VAGINOSCOPY 2015 FAMILY HISTORY Adopted: Yes Problem Relation Age of Onset Arthritis Mother Rhematoid Asthma Mother Alcohol/Drug Mother Alcohol/Drug Brother Alcohol/Drug Sister other (patient adopted) Sister SOCIAL HISTORY Social History Tobacco Use Smoking status: Former Packs/day: 0.20 Years: 15.00 Pack years: 3.00 Types: Cigarettes Quit date: 07/11/2018 Years since quittin.2 Smokeless tobacco: Former Tobacco comments: Pt states she smokes 2-4 EVAP cigarettes. 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 No bloating, early satiety, indigestion, or increased flatulence. Bladder: No dysuria, gross hematuria, urinary frequency, urinary urgency. + stress incontinence since hysterectomy Breast: No breast lumps, nipple d/c, overlying skin changes, redness or skin retraction Allergies and current medication updated:Yes EXAM: BP 102/60 Ht 5' 5.5 (1.66m) Wt 179 lb (81.2kg) LMP 02/14/2007 BMI 29.32 kg/(m2). GENERAL: pleasant female in no apparent distress HEENT: Normocephalic, atraumatic, mucus membranes moist, and no lesions NECK: Supple, full range of motion, no adenopathy, and thyroid normal DERMATOLOGY: Normal, without lesions, non-icteric, and non-hirsute BREAST: soft, non-tender, symmetric, no dominant mass, normal nipple-areolar complex, no lymphadenopathy, and no nipple discharge CHEST: Normal inspiratory effort ABDOMEN: soft, non-tender, and no masses PELVIC: external genitalia normal, normal Bartholin's glands, urethra, Anthon's glands, no vulvar lesions, physiologic discharge present, normal appearing perineal body and perianal region, cervix surgically absent. Cystocele first degree BIMANUAL: no adnexal masses, non-tender, and uterus surgically absent RECTOVAGINAL: deferred. NEURO: alert and oriented x3,exam grossly non-focal EXTREMITIES: normal ASSESSMENT/PLAN: 1) Health maintenance: Vaginal Pap done with HPV. Needs Pap every 3 yrs for 25 years post hysterectomy done in 2018 Mammogram ordered Nutrition, exercise and routine health maintenance exams reviewed. Smoking cessation: Benefits of smoking cessation reviewed. Patient encouraged to avoid smoking. Colon cancer screening: up to date with screening 2. Stress incontinence - ICD9: [id number], ICD10: N39.3 - Discussed Kegel exercises and given written instruction. 3. Cystocele, midline - ICD9: 618.01, ICD10: N81.11 - Discussed Kegel exercises and given written instruction. 4) Follow up one year or sooner as needed Zainab Ramirez APRN.ODILON [facility] 10-07-2022 Instructions Zainab Ramirez APRN.CNP - 10/07/2022 2:36 PM EDT How To Perform Pelvic Floor (Kegel) Exercises These exercises help to strengthen the pelvic floor muscles and can help improve bladder control for women. 1. You should have been instructed in the office how to contract these muscles. At home, you can insert two fingers in the vagina and feel the contraction of these muscles as you squeeze. We call these muscles the pelvic floor because they help support the pelvic organs, especially during coughing and sneezing. Squeezing the pelvic floor while standing feels like you are lifting the area around the vagina, and will interrupt the stream of urine while voiding. Once you are certain which muscles to use, do not exercise while urinating. Make sure you are not bearing down, squeezing your buttocks, or straining abdominally: these are not the muscles to be exercised. You may wish to place hands on your buttock muscles to keep these muscles relaxed while performing the exercises. 2. Squeeze these muscles as hard as you can for a slow count of five, eventually working up to a slow count of ten. Rest for 15 seconds, and then start another contraction. At first. these muscles may feel sore, just as other muscles may feel sore after exercise. 3. You should perform 50 squeezes every day: make sure every squeeze count by dez as hard as you can! Many women try to do these exercises in sets of five or ten at a time. Remind yourself to do these exercises by starting them every time you are waiting at a red light, watching a television commercial, or on hold on the telephone. If you are having trouble concentrating, you may want to set aside a special time to perform sets of pelvic floor exercises. 4. In addition to the long, hard contractions you are doing try doing some quick flicks of these muscles throughout the day. 5. You should be seen in the office after starting these exercises to make sure you are performing the contraction correctly: you may have never known how to contract these muscles before starting pelvic floor exercises, and many patients mistakenly exercise the wrong muscles. If you still feel frustrated about which muscles to use ask us for help. There are physical therapy specialists who work with pelvic floor muscles. 6. Work hard! As with any exercise program, improvement often is related to how faithfully you adhere to your exercise program. Pelvic floor exercises do not have the side effects and expense associated with other treatments for urinary incontinence, and have been known to help with severe stress incontinence. It may take several months to see the full effect of your exercise program: if you are easily discouraged, see your doctor or doctor at regular visits to assess what progress you are making. Techniques to avoid urinary accidents: Empty your bladder regularly and prior to physical activity. Avoid activity that causes leakage, if possible. Avoid or moderate the intake of alcohol and caffeine products. Try to restrict fluids prior to planned activities. Wear appropriate protection. Prevent chronic coughing which can cause a loss of urinary control. Ways to prevent chronic coughing include treating asthma, restricting smoking, and removing allergy-causing agents from your environment. documented in this encounter [facility] 10-07-2022 History of Present illness Narrative Pet Ambassador offered: Patient declines. Twyla is a 62 year old who presents for an annual gynecologic exam without complaints. Had been caring for ill mother which prevented her keeping up on her heatlh. Postmenopausal: REGINALDO with BSO 2018 at [facility] for abnormal cervical cells HRT use: No. 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 History Comments: Sexual Activity: Yes; Male; postmenopausal Contraception: PAST MEDICAL HISTORY Diagnosis Date ALCOHOL ABUSE-UNSPEC 08/07/2005 Ankylosing spondylitis (HCC) BIPOLAR DISORDER NOS 08/07/2005 Cervical high risk human papillomavirus (HPV) DNA test positive COPD (chronic obstructive pulmonary disease) ([facility]) DEPRESSIVE DISORDER NEC 08/07/2005 Diabetes ([facility]) History of cigarette smoking 04/09/2015 IRRITABLE COLON 08/07/2005 Mild dysplasia of cervix 2009 MITRAL VALVE DISORDER 08/07/2005 MYALGIA AND MYOSITIS NOS 08/07/2005 Papanicolaou smear of cervix with atypical squamous cells of undetermined significance (ASC-US) PAST SURGICAL HISTORY Procedure Laterality Date COLONOSCOPY FLX DX W/COLLJ SPEC WHEN PFRMD 01/06/2017 Colonoscopy /[facility] COLPOSCOPY CERVIX UPPER/ADJACENT VAGINA 2008 Colposcopy CONIZATION OF CERVIX; COLD KNIFE/LASER 2014 EXCISION BENIGN TUMOR/CYST 08/09/2019 EXPLORATORY LAPAROTOMY CELIOTOMY W/WO BIOPSY SPX 1998 Laparotomy, exp for endometriosis JOINT REPLACEMENT HX Right 2019 right knee KNEE ARTHROSCOPY/SURGERY Left 10/26 left knee replacement 08/27/09 OFFICE LEEP 2015 positive margins PAST SURGICAL HISTORY OF UMBILICAL HERNIA at 16 months age REGINALDO W/WO REMOVAL TUBE OVARY 2018 VAGINOSCOPY 2015 FAMILY HISTORY Adopted: Yes Problem Relation Age of Onset Arthritis Mother Rhematoid Asthma Mother Alcohol/Drug Mother Alcohol/Drug Brother Alcohol/Drug Sister other (patient adopted) Sister SOCIAL HISTORY Social History Tobacco Use Smoking status: Former Packs/day: 0.20 Years: 15.00 Pack years: 3.00 Types: Cigarettes Quit date: 07/11/2018 Years since quittin.2 Smokeless tobacco: Former Tobacco comments: Pt states she smokes 2-4 EVAP cigarettes. 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 No bloating, early satiety, indigestion, or increased flatulence. Bladder: No dysuria, gross hematuria, urinary frequency, urinary urgency. + stress incontinence since hysterectomy Breast: No breast lumps, nipple d/c, overlying skin changes, redness or skin retraction Allergies and current medication updated:Yes EXAM: BP 102/60 Ht 5' 5.5 (1.66m) Wt 179 lb (81.2kg) LMP 02/14/2007 BMI 29.32 kg/(m^2). GENERAL: pleasant female in no apparent distress HEENT: Normocephalic, atraumatic, mucus membranes moist, and no lesions NECK: Supple, full range of motion, no adenopathy, and thyroid normal DERMATOLOGY: Normal, without lesions, non-icteric, and non-hirsute BREAST: soft, non-tender, symmetric, no dominant mass, normal nipple-areolar complex, no lymphadenopathy, and no nipple discharge CHEST: Normal inspiratory effort ABDOMEN: soft, non-tender, and no masses PELVIC: external genitalia normal, normal Bartholin's glands, urethra, Anthon's glands, no vulvar lesions, physiologic discharge present, normal appearing perineal body and perianal region, cervix surgically absent. Cystocele first degree BIMANUAL: no adnexal masses, non-tender, and uterus surgically absent RECTOVAGINAL: deferred. NEURO: alert and oriented x3,exam grossly non-focal EXTREMITIES: normal ASSESSMENT/PLAN: 1) Health maintenance: Vaginal Pap done with HPV. Needs Pap every 3 yrs for 25 years post hysterectomy done in 2018 Mammogram ordered Nutrition, exercise and routine health maintenance exams reviewed. Smoking cessation: Benefits of smoking cessation reviewed. Patient encouraged to avoid smoking. Colon cancer screening: up to date with screening 2. Stress incontinence - ICD9: [id number], ICD10: N39.3 - Discussed Kegel exercises and given written instruction. 3. Cystocele, midline - ICD9: 618.01, ICD10: N81.11 - Discussed Kegel exercises and given written instruction. 4) Follow up one year or sooner as needed Zainab Ramirez APRN.STONECUTTER ASSISTANT documented in this encounter [facility] 09-30-2022 Miscellaneous Notes Called and left a voicemail for the Patient to call back and ask for a nurse to receive the providers message. Zaria Mao RN A1c 6 mos ordered Patient calls and notified of results and providers instructions. Patient verbalizes understanding. 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 Steph Olivo RN LEFT MESSAGE FOR PATIENT TO CALL OFFICE. Pts voicemail full will need to call back later. Labs overall in acceptable range. Hemoglobin A1c a bit above target. Endorse DM diet and daily exercise such as walking to help keep this in control. There is room to increase metformin dose if she is interested in this. No fracture or acute findings on spine x-ray. DDD., scoliosis noted Component Latest Ref Rng & Units 01/08/2022 09/22/2022 WBC 3.70 - 11.00 k/uL 9.20 7.21 RBC 3.90 - 5.20 m/uL 4.36 4.46 Hemoglobin 11.5 - 15.5 g/dL 12.0 12.4 Hematocrit 36.0 - 46.0 % 36.4 37.1 MCV 80.0 - 100.0 fL 83.5 83.2 MCH 26.0 - 34.0 pg 27.5 27.8 MCHC 30.5 - 36.0 g/dL 33.0 33.4 RDW-CV 11.5 - 15.0 % 13.3 13.3 Platelet Count 150 - 400 k/uL 228 264 MPV 9.0 - 12.7 fL 10.2 10.8 Neut% % 48.9 Abs Neut (ANC) 1.45 - 7.50 k/uL 3.53 Lymph% % 38.3 Abs Lymph 1.00 - 4.00 k/uL 2.76 [place]% % 7.4 Abs [place] <0.87 k/uL 0.53 Eosin% % 4.4 Abs Eosin <0.46 k/uL 0.32 Baso% % 0.7 Abs Baso <0.11 k/uL 0.05 Immature Gran % % 0.3 IMMATURE GRANS (ABS) <0.10 k/uL <0.03 NRBC /100 WBC 0.0 Absolute nRBC <0.01 k/uL <0.01 <0.01 DTYPE Auto Protein, Total 6.3 - 8.0 g/dL 6.6 7.0 Albumin 3.9 - 4.9 g/dL 4.0 4.2 Calcium 8.5 - 10.2 mg/dL 8.8 9.5 Bilirubin, Total 0.2 - 1.3 mg/dL 0.3 0.3 Alkaline Phosphatase 34 - 123 U/L 116 116 AST 13 - 35 U/L 15 17 ALT 7 - 38 U/L 12 16 Glucose 74 - 99 mg/dL 130 (H) 128 (H) BUN 7 - 21 mg/dL 13 12 Creatinine 0.58 - 0.96 mg/dL 0.58 0.64 Sodium 136 - 144 mmol/L 138 138 Potassium 3.7 - 5.1 mmol/L 4.0 4.1 Chloride 97 - 105 mmol/L 104 104 CO2 22 - 30 mmol/L 23 25 Anion Gap 9 - 18 mmol/L 11 9 eGFR >=60 mL/min/1.73m 104 101 Cholesterol, Total <200 mg/dL 142 Triglyceride <150 mg/dL 205 (H) HDL Cholesterol >39 mg/dL 43 Non HDL Cholesterol <130 mg/dL 99 Fasting Time hrs 6 VLDL Cholesterol <30 mg/dL 41 (H) TC:HDL Ratio <5.10 3.30 LDL Cholesterol <100 mg/dL 58 LDL:HDL Ratio <2.54 1.35 Total Cholesterol, Nonfasting <200 mg/dL 146 Triglycerides, Nonfasting <150 mg/dL 366 (H) HDL Cholesterol, Nonfasting >39 mg/dL 36 (L) LDL Cholesterol, Nonfasting <100 mg/dL 37 Non HDL Cholesterol, Nonfasting <130 mg/dL 110 VLDL Cholesterol, Nonfasting <30 mg/dL 73 (H) Total Chol/HDL Ratio, Nonfasting <5.10 mg/dL 4.06 LDL/HDL Ratio, Nonfasting <2.54 mg/dL 1.03 Creatinine, Ur Random (UCRR) 20.0 - 300.0 mg/dL 95.0 Albumin, Urine Random mg/L <12.0 Albumin/Creat Ratio <30 mg/g <13 Hemoglobin A1C 4.3 - 5.6 % 7.2 (H) 7.3 (H) Estimated Average Glucose mg/dL 160 163 Magnesium 1.7 - 2.3 mg/dL 1.7 Vitamin D 25 Hydroxy 31.0 - 80.0 ng/mL 34.9 Alpha 1 Antitrypsin 90 - 200 mg/dL 143 documented in this encounter [facility] 09-24-2022 Note HNO ID: [id number] Author: Morales Golias, PT Service: ? Author Type: Physical Therapist Type: Progress Notes Filed: 09/24/2022 6:01 PM Note Text: Episode Visit Count: 1 Therapist That Will Accept/Oversee The Plan Of Care: Morales Cunningham PT Start of Care Date: 09/24/22 Onset Date: 09/20/22 Plan of Care Certification Date: 09/24/22 Next Certification Due Date: 10/29/22 Patient Identified by Name and Date of : Yes REHABILITATION AND SPORTS THERAPY PHYSICAL THERAPY EVALUATION PLAN OF CARE: Assessment: Twyla Escalona presents with chief complaint of mid to upper back pain that interferes with sleeping, lifting, bending. She presents with impairments in ADL's, independence in exercise, overall function, posture, range of motion, strength, symptom management, and tissue tenderness. PROMIS? (Patient-Reported Outcomes Measurement Information System) scores were reviewed and physical function domain identified as a rehabilitation concern. Prognosis for therapy is Good due to: current objective clinical presentation, good overall health status, acuteness of condition, within-session changes. She will benefit from skilled therapy services to meet the goals established for this plan of care as noted below. Classification Low Back Pain Subgroup Classification: Core stabilization subgroup: recommended visits 10. Core Stabilization Subgroup Classification based on: pain with transitional movements (pain with prolonged positions) Goals for Episode of Care: created on 09/24/22 through 10/29/22 Independent in home exercises. Patient will decrease pain rating by 2 points to meet minimal clinical important difference for numeric pain rating scale. Restore pain-free thoracic ROM to WFL to allow for improved bending. Sleep through night without pain/symptoms. Patient will be able to tolerate bending, lifting and sleeping without increased symptoms. Patient will increase strength of postural muscles to WFL to allow for improve ability to complete ADLs. Patient Goals: decrease back pain and increase strength Planned Interventions, Frequency, and Duration: Current Frequency: 2x/week Duration: 5 weeks Total Number of Visits Planned: 10 Planned Treatment Interventions: Therapeutic exercise (18703), Neuromuscular re-education (69268), Manual therapy (37867), Therapeutic activities (09709), Self-alf management (01198), Patient/Family/Caregiver Education, Body Mechanics Training, General Conditioning PLAN FOR NEXT VISIT: Review, correct and progress HEP to tolerance. Continue with postural stretching and strengthening therex with emphasis on thoracic spine region. Manual therapy prn. Patient demonstrates good understanding of plan of care and treatment. The above goals and plan of care were discussed and agreed upon by patient/family. SUBJECTIVE: Twyla Escalona is a 62 year old female seen today for constant back pain that increased and is currently severe following a fall on 09/20/22. She was moving furniture and fell backward into a closet and hit her back on plastic storage container. She reports that pain has been severe since fall 09/20/22. Patient Goals: decrease back pain and increase strength Functional Limitations: sleeping, lifting, bending Prior Level of Function: Independent with restrictions Independent with the following restrictions: chronic low back pain but functional limitations have worsened. Relevant History Past Relevant Medical Conditions: Traumatic Brain Injury Employment: Unemployed Home Environment Patient Lives With: Other: See Comment (friend) Intake Information: Prescription present Previous Treatment: Muscle relaxer Red Flags Vertebral Fracture Red Flags: Female Vertebral Fracture Clinical Reasoning: Proceed with caution due to the above (1-2) risk factors Abdominal Aortic Aneurysm Clinical Reasoning: No identified risk factors. Cancer Clinical Reasoning: No identified risk factors. Infection Clinical Reasoning: No identified risk factors. Red Flags - Cervical Cancer Clinical Reasoning: No identified risk factors. Infection Clinical Reasoning: No identified risk factors. Spine History Symptoms Location at Onset: Back Symptoms Since Onset: Worsening Pain is Worse Always: Lying, Bending Pain is Better Sometimes: (laying on right side with pillows in front) Previous Episodes: Yes Previous Spine Episodes: chronic back pain Sleeping Position: Side lying right Sleep Affected by Pain: Pain keeps from falling asleep, Pain awakens Pain: Pain Pain Level: 4 (8/10 at worst with certain movements) Pain Location: Thoracic Spine Description: Aching, Dull, Sharp, Stabbing Frequency: Continuous (constant but varies in intensity) Post Treatment Pain Post Treatment Pain Level: Better Post Treatment Pain Location: Thoracic Spine Post Treatment Symptoms: After session today she reported feeling better and this decrease (more content not included)... [facility] 09-24-2022 History of Present illness Narrative Episode Visit Count: 1 Therapist That Will Accept/Oversee The Plan Of Care: Morales Cunningham PT Start of Care Date: 09/24/22 Onset Date: 09/20/22 Plan of Care Certification Date: 09/24/22 Next Certification Due Date: 10/29/22 Patient Identified by Name and Date of : Yes REHABILITATION AND SPORTS THERAPY PHYSICAL THERAPY EVALUATION PLAN OF CARE: Assessment: Twyla Escalona presents with chief complaint of mid to upper back pain that interferes with sleeping, lifting, bending. She presents with impairments in ADL's, independence in exercise, overall function, posture, range of motion, strength, symptom management, and tissue tenderness. PROMIS (Patient-Reported Outcomes Measurement Information System) scores were reviewed and physical function domain identified as a rehabilitation concern. Prognosis for therapy is Good due to: current objective clinical presentation, good overall health status, acuteness of condition, within-session changes. She will benefit from skilled therapy services to meet the goals established for this plan of care as noted below. Classification Low Back Pain Subgroup Classification: Core stabilization subgroup: recommended visits 10. Core Stabilization Subgroup Classification based on: pain with transitional movements (pain with prolonged positions) Goals for Episode of Care: created on 09/24/22 through 10/29/22 Independent in home exercises. Patient will decrease pain rating by 2 points to meet minimal clinical important difference for numeric pain rating scale. Restore pain-free thoracic ROM to WFL to allow for improved bending. Sleep through night without pain/symptoms. Patient will be able to tolerate bending, lifting and sleeping without increased symptoms. Patient will increase strength of postural muscles to WFL to allow for improve ability to complete ADLs. Patient Goals: decrease back pain and increase strength Planned Interventions, Frequency, and Duration: Current Frequency: 2x/week Duration: 5 weeks Total Number of Visits Planned: 10 Planned Treatment Interventions: Therapeutic exercise (50745), Neuromuscular re-education (22099), Manual therapy (26694), Therapeutic activities (18815), Self-alf management (38708), Patient/Family/Caregiver Education, Body Mechanics Training, General Conditioning PLAN FOR NEXT VISIT: Review, correct and progress HEP to tolerance. Continue with postural stretching and strengthening therex with emphasis on thoracic spine region. Manual therapy prn. Patient demonstrates good understanding of plan of care and treatment. The above goals and plan of care were discussed and agreed upon by patient/family. SUBJECTIVE: Twyla Escalona is a 62 year old female seen today for constant back pain that increased and is currently severe following a fall on 09/20/22. She was moving furniture and fell backward into a closet and hit her back on plastic storage container. She reports that pain has been severe since fall 09/20/22. Patient Goals: decrease back pain and increase strength Functional Limitations: sleeping, lifting, bending Prior Level of Function: Independent with restrictions Independent with the following restrictions: chronic low back pain but functional limitations have worsened. Relevant History Past Relevant Medical Conditions: Traumatic Brain Injury Employment: Unemployed Home Environment Patient Lives With: Other: See Comment (friend) Intake Information: Prescription present Previous Treatment: Muscle relaxer Red Flags Vertebral Fracture Red Flags: Female Vertebral Fracture Clinical Reasoning: Proceed with caution due to the above (1-2) risk factors Abdominal Aortic Aneurysm Clinical Reasoning: No identified risk factors. Cancer Clinical Reasoning: No identified risk factors. Infection Clinical Reasoning: No identified risk factors. Red Flags - Cervical Cancer Clinical Reasoning: No identified risk factors. Infection Clinical Reasoning: No identified risk factors. Spine History Symptoms Location at Onset: Back Symptoms Since Onset: Worsening Pain is Worse Always: Lying, Bending Pain is Better Sometimes: (laying on right side with pillows in front) Previous Episodes: Yes Previous Spine Episodes: chronic back pain Sleeping Position: Side lying right Sleep Affected by Pain: Pain keeps from falling asleep, Pain awakens Pain: Pain Pain Level: 4 (8/10 at worst with certain movements) Pain Location: Thoracic Spine Description: Aching, Dull, Sharp, Stabbing Frequency: Continuous (constant but varies in intensity) Post Treatment Pain Post Treatment Pain Level: Better Post Treatment Pain Location: Thoracic Spine Post Treatment Symptoms: After session today she reported feeling better and this decrease in pain makes her hopeful. PROMIS Scales Higher is Better 09/24/2022 Phys Func - Score 39 (moderate dysfunction) Phys Func - Percentile 14 % Self-Eff Symptom - Score 50 (Average) Self-Eff Symptom - Percentile 50 % T-scores: mean of general population = 50. 5 points is clinically meaningfully difference Percentiles provide an indication of how the patient's score ranks in relation to the general population. Higher percentile rankings indicate better function/quality of life. 50th percentile is the average of the general population and indicates half of respondents had a worse score. OBJECTIVE MEASURES WITH LEVEL OF FUNCTION: Posture / Alignment Posture: Forward head, Increased thoracic kyphosis, Rounded shoulders, Poor, Slump Sitting Posture: Increased thoracic kyphosis, Poor, Slump Spine Observations R Thoracic Spine Palpation Tenderness: Paraspinals L Thoracic Spine Palpation Tenderness: Paraspinals, Inferior angle- Scapula Thoracic Spine AROM Thoracic Flexion: Major limitation Thoracic Extension: Major limitation, Increased pain Thoracic Sidebend Right: Normal Thoracic Sidebend Left: Moderate limitation, Increased pain Thoracic Rotation Right: Major limitation, Increased pain Thoracic Rotation Left: Major limitation, Increased pain LE Strength Trunk Strength: Pt's reported chronicity of symptoms, postural deficits and reported functional difficulties indicate that she will benefit from increased core and postural strength. Education: Education Learning Preferences: Demonstration, Explanation, Performance, Printed Materials Barriers: Cognitive Limitations (after effects of TBI) Learning/educational needs: Plan of Care, Home exercise program, Posture, Body Mechanics, Lifestyle changes Education Provided: Yes, see treatment interventions for education provided Education Provided To: Patient Education Mode/Type: Demonstration, Explanation/Discussion, Literature/Printed Materials, Performance Response to Education/Teach Back: States/Identifies, Return Demonstration, Requires Review/Additional Education TREATMENT: PT Treatment Interventions: Therapeutic Exercise Evaluation Therapeutic Exercise: 1: Pt was educated on the anatomy of symptomatic area, likely source of symptoms and rationale for proposed plan. She was advised to use pain as her guide at all times and to back off or stop any exercise that causes increased pain. 2: *seated thoracic rotation with fingers laced in center of chest 2x10 in pain-free range 3: *seated B rhomboid stretch 3x30 seconds similar to posterior capsule stretch. Skilled Intervention: Patient was educated in proper exercise technique and purpose for exercises. Reviewed and educated patient on additions/changes for home exercise program as above (*). Skilled judgment was provided in selection of appropriate interventions. Provided written instruction for home exercise program to facilitate proper performance and compliance. Correct performance of therapeutic exercises was facilitated with verbal, visual, and tactile cuing. Patient education as noted. Billing * Evaluation Moderate Complexity: 1 Unit Therapeutic Exercise Treatment Minutes: 15 Total Treatment Time Minutes (timed/untimed): 45 Morales Cunningham PT documented in this encounter [facility] 09-22-2022 Instructions Laith Galarza APRN.MARKET INVESTIGATOR - 09/22/2022 1:45 PM EST Take cyclobenzaprine for mid and low back pain Consider physical therapy for back pain XR today for back Consider using continuous glucose monitoring if your insurance covers it Check to see if your insurance covers shingles vaccine and what location to get the vaccine -usually best covered at your local pharmacy where you get prescriptions filled documented in this encounter [facility] 09-22-2022 History of Present illness Narrative HPI Twyla Escalona is a 62 year old female. PMH significant for ACTIVE PROBLEM LIST Depressive Disorder Mitral Valve Disorders(424.0) Malaise and Fatigue Irritable Bowel Syndrome Bipolar Disorder, Unspecified (Hcc) History of Alcohol Dependence (Hcc) Chondromalacia of Patella Other and Unspecified Derangement of Medial Meniscus Copd (Chronic Obstructive Pulmonary Disease) (Hcc) Dm (Diabetes Mellitus) (Hcc) Displacement of Lumbar Intervertebral Disc Without Myelopathy Sciatica Ankylosing Spondylitis (Hcc) Tbi (Traumatic Brain Injury) (Hcc) Chronic Post-Traumatic Stress Disorder Dilated Cbd, Acquired Dyslipidemia Associated With Type 2 Diabetes Mellitus (Hcc) Vitamin D Deficiency Glaucoma Suspect of Both Eyes Presents for routine follow up visit: On arrival indicates she fell at home 2 days ago. Notes she hit her mid and lower back, slid to the floor. She has been taking Tylenol and naproxen with some minor relief. She is noting muscle spasm. Separately notes her mother in April. She had been deferring care for herself for period of time due to this. Note she is seeing Dr. Jimenez for counseling. Depression/bipolar: mood is stable on current treatment, no voiced SI HI. No reported EtOH use. DIABETES MELLITUS: Home BS 200s when checking after meals. Without report of excessive thirst or increased frequency of urination, chest pain or dyspnea , numbness, tingling or pain in extremities, new or unusual visual symptoms, low sugar/hypoglycemic reactions, weight loss/gain, lightheadedness/dizziness and bowel changes/loose stools.Notes that she was not taking insulin for the last 6 months due to well controlled. Now with stress and BS not well controlled. Resumed 70/30 daily for the last few days. Patient's last HgA1C was Hemoglobin A1C (%) Date Value 01/08/2022 7.2 11/20/2020 7.3 04/18/2020 7.9 HTN: Without report of headache, chest pain, palpitations, dyspnea, peripheral edema, orthopnea, fatigue and PND. Last 3 Encounter BP Readings: Date: BP: Last 14 Encounter BP Readings: Date: BP: 09/22/2022 120/62 05/19/2022 120/78 03/18/2022 132/76 02/10/2022 124/68 01/24/2022 120/72 11/07/2021 122/68 08/08/2021 118/78 07/18/2021 110/80 06/19/2021 122/74 06/04/2021 118/70 04/16/2021 110/78 03/20/2021 122/80 11/21/2020 104/60 09/23/2020 104/82 Hyperlipidemia. Ms. Escalona reports doing well on current therapy. Her most recent lipid panels are: Cholesterol, Total (mg/dL) Date Value 12/24/2018 145 06/22/2017 178 Total Cholesterol, Nonfasting (mg/dL) Date Value 01/08/2022 146 11/20/2020 176 HDL Cholesterol (mg/dL) Date Value 12/24/2018 40 06/22/2017 39 HDL Cholesterol, Nonfasting (mg/dL) Date Value 01/08/2022 36 11/20/2020 38 LDL Cholesterol (mg/dL) Date Value 12/24/2018 42 06/22/2017 95 LDL Cholesterol, Nonfasting (mg/dL) Date Value 01/08/2022 37 11/20/2020 76 Triglyceride (mg/dL) Date Value 12/24/2018 317 06/22/2017 218 Triglycerides, Nonfasting (mg/dL) Date Value 01/08/2022 366 11/20/2020 310 She notes no recent PATIENT NAVIGATOR visit, has not seen Jerry Rodriguez recently. HISTORY REVIEWED: - medical history - medications - allergies REVIEW OF SYSTEMS: GENERAL: positive for fatigue. no recent change in weight, no fever RESPIRATORY: positive for cough. no wheezing or shortness of breath CARDIOVASCULAR: no chest pain, no palpitations, no leg swelling ENDOCRINE: denies polyuria or polydipsia, PHYSICAL EXAMINATION: BP 120/62 Pulse 69 Resp 16 Wt 79.8 kg (176 lb) LMP 02/14/2007 SpO2 97% BMI 27.98 kg/m General appearance: Well appearing, alert, in no acute distress, well-hydrated, well nourished. Skin: Skin color, texture, turgor andreina. Head: Normocephalic. Eyes: Anicteric sclera. Neck: no adenopathy; thyroid symmetric, normal size, no bruits Lungs: Lungs clear to auscultation. No wheezing, rhonchi, rales. Heart: RRR without murmur, gallop, or rubs. No ectopy Abdomen: Abdomen soft, non-tender. Bowel sounds normal. No masses, organomegaly Back: TTP lumbar, thoracic; generalized, no perispinal spasms appreciated. Extremities: No deformities, edema, Good capillary refill. Peripheral pulses: Normal Neuro: Gait normal. Sensation grossly intact. Component Latest Ref Rng & Units 01/08/2022 Protein, Total 6.3 - 8.0 g/dL 6.6 Albumin 3.9 - 4.9 g/dL 4.0 Calcium 8.5 - 10.2 mg/dL 8.8 Bilirubin, Total 0.2 - 1.3 mg/dL 0.3 Alkaline Phosphatase 34 - 123 U/L 116 AST 13 - 35 U/L 15 ALT 7 - 38 U/L 12 Glucose 74 - 99 mg/dL 130 (H) BUN 7 - 21 mg/dL 13 Creatinine 0.58 - 0.96 mg/dL 0.58 Sodium 136 - 144 mmol/L 138 Potassium 3.7 - 5.1 mmol/L 4.0 Chloride 97 - 105 mmol/L 104 CO2 22 - 30 mmol/L 23 Anion Gap 9 - 18 mmol/L 11 eGFR >=60 mL/min/1.73m 104 WBC 3.70 - 11.00 k/uL 9.20 RBC 3.90 - 5.20 m/uL 4.36 Hemoglobin 11.5 - 15.5 g/dL 12.0 Hematocrit 36.0 - 46.0 % 36.4 MCV 80.0 - 100.0 fL 83.5 MCH 26.0 - 34.0 pg 27.5 MCHC 30.5 - 36.0 g/dL 33.0 RDW-CV 11.5 - 15.0 % 13.3 Platelet Count 150 - 400 k/uL 228 MPV 9.0 - 12.7 fL 10.2 Absolute nRBC <0.01 k/uL <0.01 Total Cholesterol, Nonfasting <200 mg/dL 146 Triglycerides, Nonfasting <150 mg/dL 366 (H) HDL Cholesterol, Nonfasting >39 mg/dL 36 (L) LDL Cholesterol, Nonfasting <100 mg/dL 37 Non HDL Cholesterol, Nonfasting <130 mg/dL 110 VLDL Cholesterol, Nonfasting <30 mg/dL 73 (H) Total Chol/HDL Ratio, Nonfasting <5.10 mg/dL 4.06 LDL/HDL Ratio, Nonfasting <2.54 mg/dL 1.03 Hemoglobin A1C 4.3 - 5.6 % 7.2 (H) Estimated Average Glucose mg/dL 160 Magnesium 1.7 - 2.3 mg/dL 1.7 Vitamin D 25 Hydroxy 31.0 - 80.0 ng/mL 34.9 ASSESSMENT/PLAN: 1. Chronic obstructive pulmonary disease, unspecified COPD type (HCC) - ICD9: 496, ICD10: J44.9 - [id number] BL 2. Encounter for immunization - ICD9: V03.89, ICD10: Z23 3. Screening for cervical cancer - ICD9: V76.2, ICD10: Z12.4 - CONSULT TO PATIENT NAVIGATOR 4. Type 2 diabetes mellitus without complication, with long-term current use of insulin ([facility]) - ICD9: 250.00, V58.67, ICD10: E11.9, Z79.4(primary diagnosis) Diabetes currently controlled. Continue with current treatment unchanged for now. Continue to monitor - COMP METABOLIC PANEL - CBC + DIFF - ALBUMIN/CREAT RATIO RND UR - HGB A1C - LIPID PANEL BASIC 5. Acute mid back pain - ICD9: 724.5, ICD10: M54.9 Continue with Tylenol and naproxen for back pain. Add Flexeril at bedtime and consider physical therapy. X-rays today. - XR LUMBAR GENERAL 3V AP/LAT/L5-S1 - CONSULT TO PHYSICAL THERAPY - XR THORACIC GENERAL 3V AP/LAT/SWIMMERS 6. Acute bilateral low back pain without sciatica - ICD9: 724.2, 338.19, ICD10: M54.50 - XR LUMBAR GENERAL 3V AP/LAT/L5-S1 Take cyclobenzaprine for mid and low back pain Consider physical therapy for back pain XR today for back Consider using continuous glucose monitoring if your insurance covers it Check to see if your insurance covers shingles vaccine and what location to get the vaccine -usually best covered at your local pharmacy where you get prescriptions filled 6 mo follow up Gianfranco Singh MD schedule mammogram labs today Laith Galarza APRN.CNS Medical Decision Making: Problems: Low: Acute, uncomplicated illness or injury Moderate: 2+ stable chronic illnesses Data: Unique test(s) ordered: 2 Risk: Moderate: Drug management Medical Decision Making Level: 4 - Moderate documented in this encounter [facility] 09-17-2022 Miscellaneous Notes PDMP website checked and validated. All prescriptions have been APPROPRIATELY filled. No suspicious activity was identified. 09/17/2022 by Saul Omer APRN.ODILON Patient called back and has been scheduled for 09/22/2022, can this RX be called in today, patient is out of medication as of today. 1st attempt: LVM for patient to reschedule 09/12/2022 appointment Please call pt to reschedule 09/12/22 appt with pcp. Twyla is out of the clonazepam. Please call in as soon as possible Pharmacy verified in Epic Patient has been identified by name and date of : Yes Patient aware RX will be sent to pharmacy. No need to notify patient. Patient phones for refill(s): Requested Prescriptions Pending Prescriptions Disp Refills clonazePAM (KLONOPIN) 2 mg tablet 60 tablet 0 Sig: Take 1 tablet by mouth twice daily as needed for up to 30 days. Date of last office visit : 02/10/2022 Date of next office visit : Visit date not found Last 2 Encounter Wt Readings: Date: Wt: 05/19/2022 80 kg (176 lb 6.4 oz) 03/18/2022 83.3 kg (183 lb 9.6 oz) Please advise. Tika Sood Pss documented in this encounter [facility] 09-08-2022 Miscellaneous Notes Okayed Patient has been identified by name and date of : Yes, Provider Dr. Singh Date 09-08-22 Time 4:22 pm Patient phones for refill(s): Requested Prescriptions Pending Prescriptions Disp Refills propranolol (INDERAL) 40 mg tablet 270 tablet 3 Sig: Take 1 tablet by mouth three times daily. Date of last office visit with pcp: 02-10-22. Next appt: 09-12-22 Patient reports she is out of medication. Last 2 Encounter Wt Readings: Date: Wt: 05/19/2022 80 kg (176 lb 6.4 oz) 03/18/2022 83.3 kg (183 lb 9.6 oz) Previous labs/tests for medication: Blood Pressure: BUN (mg/dL) Date Value 01/08/2022 13 11/20/2020 14 Sodium (mmol/L) Date Value 01/08/2022 138 11/20/2020 135 Last 1 Encounter BP Readings: Date: BP: 05/19/2022 120/78 Liver Function: ALT (U/L) Date Value 01/08/2022 12 11/20/2020 20 AST (U/L) Date Value 01/08/2022 15 11/20/2020 18 Please advise. Thank you. Amilcar Flower RN documented in this encounter [facility] 08-20-2022 History of Present illness Narrative POPULATION HEALTH NAVIGATION OUTREACH Action/I Due for: Mammogram A1c Urine Albumin Dilated Retinal Exam (due 02/12/23) Left VM; MyChart message sent Patient Identified by Name and : NO Outreach Outcome/Action Unable to reach patient: Left message MyChart message sent Did you use a PCP flex slot to schedule this appointment? N/A Reason for Outreach Care Gap or Scheduling/Wellness visits Payer: Payor: [employer] CROSS AND BLUE SHIELD / Plan: [employer] HMO / Product Type: HMO / Care Gap Reviewed:: Breast Cancer screening Diabetic Eye Exam HBA1C Nephropathy (Albumin/Creatinine) Urine Reminder: Reminder note to check Health Maintenance for items below Health Maintenance items due: ALPHA-1 ANTITRYPSIN DEFICIENCY SCREENING Never done SHINGRIX VACCINE(1 of 2) Never done MAMMOGRAM due on 11/28/2015 DIABETIC FOOT EXAM due on 06/13/2017 PAP TESTING due on 11/28/2019 HPV TESTING due on 11/29/2019 URINE ALBUMIN:CREATININE RATIO due on 11/20/2021 ANNUAL PCP TEAM CHRONIC DISEASE VISIT due on 06/04/2022 HBA1C due on 07/10/2022 Navigation Signature: Zainab Sullivan MA August 20, 2022 11:03 AM documented in this encounter [facility] 07-11-2022 Miscellaneous Notes The following approved medication requests have been transmitted electronically. Requested Prescriptions Signed Prescriptions Disp Refills naproxen (NAPROSYN) 500 mg tablet 180 tablet 0 Sig: Take 1 tablet by mouth twice daily as needed (for pain/inflammation). Take with food. Authorizing Provider: GIANFRANCO SINGH MD Patient has been identified by name and date of : Yes Patient phones for refill(s): Requested Prescriptions Pending Prescriptions Disp Refills naproxen (NAPROSYN) 500 mg tablet 180 tablet 0 Sig: Take 1 tablet by mouth twice daily as needed (for pain/inflammation). Take with food. Date of last office visit in primary care: 02/10/2022 Last 2 Encounter Wt Readings: Date: Wt: 05/19/2022 80 kg (176 lb 6.4 oz) 03/18/2022 83.3 kg (183 lb 9.6 oz) Previous labs/tests for medication: Not applicable Please advise. Thank you. Caprice Reynolds LPN documented in this encounter [facility] 07-10-2022 Miscellaneous Notes Phone number listed for Patient has been disconnected. Called [facility] and spoke to pharmacist, he will run RX through and contact Patient when ready. Liza Renee LPN Cannot make the order say 70/30 like it used to. Typed in and sent note to pharmacy. I found an entry for Humulin 70/30, so sent that with pharmacy note that can given Novolin if that is preferred/covered brand The following approved medication requests have been transmitted electronically. Requested Prescriptions Signed Prescriptions Disp Refills insulin NPH-insulin regular injection 30 mL 3 Sig: Inject 12 Units subcutaneously daily with breakfast. (Humulin or Novolin 70/30) Authorizing Provider: GIANFRANCO SINGH MD Majo Costa asking if provider could please write the 70/30 insulin as it was written on 03-22-21 Rx. In parenthesis it reads HumuLIN, NovoLIN 70/30. When I try to re-order the Rx written on 03-22-21 it doesn't include the 70/30 in the parenthesis. [facility] pharmacy prefers it written this way b/c it is less confusing. Attempted to reach patient but number listed is no longer in service. So 70/30 is a combination of insulin NPH (70%) and insulin regular (30%) so as long as what she has is the insulin NPH and insulin regular combination it would be the same as what she had BUT she should check with the pharmacy to ensure the correct prescription was filled for her. Can also resend script so she has refills available. Patient reports she picked up insulin from pharmacy. Reports she didn't open it because it does not say 70/30 on it. Appears on med list, EC sent Rx for insulin NPH-insulin regular. Patient reports she asked them to b/c she thought she didn't have refills. Appears the 70/30 was d/c'd on 05-19-22, so she is unable to get refill. Has enough for today's dose, then will be out. Asking provider to please send new Rx for the 70/30 to pharmacy or is the NPH that was sent the same thing? Please review and advise patient. documented in this encounter [facility] 06-03-2022 History of Present illness Narrative POPULATION HEALTH NAVIGATION OUTREACH Action/FYI INVALID NUMBER [employer] MESSAGE SENT APPT 09-12-22 MAMMOGRAM due on 11/28/2015 URINE ALBUMIN:CREATININE RATIO ORDERED INFLUENZA(1) due on 03/20/2022 Pt identified by name and : NO Outreach Outcome/Action Unable to reach patient: Phone number not valid / voicemail full The [employer] message sent Did you use a PCP flex slot to schedule this appointment? N/A Reason for Outreach Care Gap or Scheduling/Wellness visits Payer: Payor: [employer] / Plan: JAD YEE HMO / Product Type: HMO / Care Gap Reviewed:: Breast Cancer screening Nephropathy (Albumin/Creatinine) Urine Flu vaccine Reminder: Reminder note to check Health Maintenance for items below Health Maintenance items due: ALPHA-1 ANTITRYPSIN DEFICIENCY SCREENING Never done SHINGRIX VACCINE(1 of 2) Never done MAMMOGRAM due on 11/28/2015 DIABETIC FOOT EXAM due on 06/13/2017 PAP TESTING due on 11/28/2019 HPV TESTING due on 11/29/2019 URINE ALBUMIN:CREATININE RATIO due on 11/20/2021 INFLUENZA(1) due on 03/20/2022 Message Sent to Practice: No Navigation Signature: Carmelina Portillo MA June 03, 2022 11:53 AM documented in this encounter [facility] 05-19-2022 History of Present illness Narrative This note was created using [employer]. Subjective Twyla Escalona is a 61 year old female. HPI Patient presents with a chief complaint of cough, hoarse voice, congestion over the past week. She does have a history of COPD. She has had some low-grade fevers. She states she really had not been sleeping very well she had been taking care of her mother who last week. Denies vomiting or diarrhea. No ear pain. No home COVID test done. Review of Systems Constitutional: Positive for fatigue and fever. HENT: Positive for congestion, sore throat and voice change. Respiratory: Positive for cough. Negative for shortness of breath and wheezing. Cardiovascular: Negative. Gastrointestinal: Negative. Genitourinary: Negative. Musculoskeletal: Negative. All other systems reviewed and are negative. PAST MEDICAL HISTORY Diagnosis Date ALCOHOL ABUSE-UNSPEC 08/07/2005 Ankylosing spondylitis (HCC) BIPOLAR DISORDER NOS 08/07/2005 Cervical high risk human papillomavirus (HPV) DNA test positive COPD (chronic obstructive pulmonary disease) (HCC) DEPRESSIVE DISORDER NEC 08/07/2005 Diabetes (HCC) History of cigarette smoking 04/09/2015 IRRITABLE COLON 08/07/2005 Mild dysplasia of cervix 2009 MITRAL VALVE DISORDER 08/07/2005 MYALGIA AND MYOSITIS NOS 08/07/2005 Papanicolaou smear of cervix with atypical squamous cells of undetermined significance (ASC-US) Current Outpatient Medications Medication Sig Dispense Refill insulin syr/ndl U100 half blane 0.5 mL 30 gauge x 1/2 syrg 1 Each once daily as needed. 100 Each 0 insulin NPH-insulin regular injection Inject 12 Units subcutaneously daily with breakfast. 30 mL 0 predniSONE (DELTASONE) 20 mg tablet Take 2 tablets by mouth once daily for 5 days. 10 tablet 0 benzonatate (TESSALON PERLES) 100 mg capsule Take 2 capsules by mouth three times daily as needed. 30 capsule 0 doxycycline (VIBRA-TABS) 100 mg tablet Take 1 tablet by mouth twice daily for 10 days. 20 tablet 0 naproxen (NAPROSYN) 500 mg tablet Take 1 tablet by mouth twice daily as needed (for pain/inflammation). Take with food. 180 tablet 0 atorvastatin (LIPITOR) 10 mg tablet Take 1 tablet by mouth once daily. 90 tablet 3 clonazePAM (KLONOPIN) 2 mg tablet Take 1 tablet by mouth twice daily as needed for up to 180 days. Each refill is 60 pills per month; with 5 refills this prescription is for 180 days. May fill today 60 tablet 5 moxifloxacin (VIGAMOX) 0.5 % ophthalmic solution Use 1 Drop in the right eye four times daily. Please start 3 days prior to your surgical date 3 mL 0 keTORolac (ACULAR) 0.5 % ophthalmic solution Use 1 Drop in the right eye four times daily. Please start 3 days prior to your surgical date 5 mL 0 prednisoLONE acetate (PRED FORTE, ECONOPRED PLUS) 1 % ophthalmic suspension Use 1 Drop in the right eye four times daily. Please start 3 days prior to your surgical date 5 mL 1 venlafaxine ER (EFFEXOR XR) 150 mg 24 hr capsule One capsule twice daily 180 capsule 3 blood sugar diagnostic test strip One Touch test strips for patient's covered meter--Check 2 to 3 times daily (E11.9, Z79.4) Type 2 diabetes mellitus. Insulin: YES 300 Strip 3 clonazePAM (KLONOPIN) 2 mg tablet Take 1 tablet by mouth twice daily as needed for up to 30 days. 60 tablet 0 metFORMIN (GLUCOPHAGE) 500 mg tablet Take two metformin with breakfast, one with dinner 270 tablet 3 omeprazole (PRILOSEC) 20 mg capsule Take 1 capsule by mouth once daily. 90 capsule 3 benzonatate (TESSALON PERLES) 100 mg capsule Take 1 capsule by mouth three times daily as needed for cough. 30 capsule 1 albuterol HFA (VENTOLIN HFA) 90 mcg/actuation inhaler Inhale 2 Puffs as instructed every 4 hours as needed for wheezing/shortness of breath. 18 g 0 Insulin Syringe-Needle U-100 0.5 mL 30 gauge x 1/2 1 Each once daily. and as needed. Use one syringe/needle for each dose 100 Each 3 gabapentin (NEURONTIN) 300 mg capsule Take 1 capsule by mouth three times daily. 270 capsule 3 propranolol (INDERAL) 40 mg tablet Take 1 tablet by mouth three times daily. 270 tablet 3 cyanocobalamin (VITAMIN B-12) 100 mcg tab Take 100 mcg by mouth once daily. zinc sulfate (ZINC-15 ORAL) Take by mouth. Ascorbic Acid 1,000 mg tablet Take 1,000 mg by mouth once daily. Poeqvxxtvosfw-Tnsighbm-Zpayxf (MULTIVITAMIN 50 PLUS) tab Take 1 tablet by mouth once daily. Cholecalciferol, Vitamin D3, 5,000 unit cap Take 1 capsule by mouth once daily. Lancets (Gone!UCH ULTRASOFT LANCETS) lancets Use one lancet daily . Use as instructed dx. E 11.9 50 Each 11 Blood-Glucose Meter (Gone!UCH ULTRA2) monitoring kit 1 Each as needed (Test 2-3 times a day or as needed). One Touch Meter Kit Diagnosis: Diabetes Mellitus 1 Each 0 aspirin, enteric coated 81 mg ORAL EC tablet 0 No current facility-administered medications for this visit. PAST SURGICAL HISTORY Procedure Laterality Date COLONOSCOPY FLX DX W/COLLJ SPEC WHEN PFRMD 01/06/2017 Colonoscopy /[facility] COLPOSCOPY CERVIX UPPER/ADJACENT VAGINA 2009 Colposcopy CONIZATION OF CERVIX; COLD KNIFE/LASER 2014 EXCISION BENIGN TUMOR/CYST 08/09/2019 EXPLORATORY LAPAROTOMY CELIOTOMY W/WO BIOPSY SPX 1998 Laparotomy, exp for endometriosis JOINT REPLACEMENT HX Right 2018 right knee KNEE ARTHROSCOPY/SURGERY Left 10/26 left knee replacement 08/27/09 OFFICE LEEP 2015 positive margins PAST SURGICAL HISTORY OF UMBILICAL HERNIA at 16 months age REGINALDO W/WO REMOVAL TUBE OVARY 2018 VAGINOSCOPY 2015 FAMILY HISTORY Adopted: Yes Problem Relation Age of Onset Arthritis Mother Rhematoid Asthma Mother Alcohol/Drug Mother Alcohol/Drug Brother Alcohol/Drug Sister other (patient adopted) Sister Social History Tobacco Use Smoking status: Former Packs/day: 0.20 Years: 15.00 Pack years: 3.00 Types: Cigarettes Quit date: 07/11/2018 Years since quittin.8 Smokeless tobacco: Former Tobacco comments: Pt states she smokes 2-4 EVAP cigarettes. Substance Use Topics Alcohol use: No Comment: recovering alcoholic- sober as of 01/15/2006 Drug use: No Comment: cocaine- sober as of 01/15/2006 Objective BP 120/78 Pulse 74 Temp 36.4 C (97.5 F) Resp 18 Wt 80 kg (176 lb 6.4 oz) LMP 02/14/2007 SpO2 97% BMI 28.05 kg/m Physical Exam Vitals reviewed. Constitutional: Appearance: Normal appearance. HENT: Head: Normocephalic and atraumatic. Right Ear: Tympanic membrane, ear canal and external ear normal. Left Ear: Tympanic membrane, ear canal and external ear normal. Nose: Congestion present. Mouth/Throat: Mouth: Mucous membranes are moist. Pharynx: Oropharynx is clear. Cardiovascular: Rate and Rhythm: Normal rate and regular rhythm. Heart sounds: Normal heart sounds. Pulmonary: Effort: Pulmonary effort is normal. Breath sounds: Normal breath sounds. Musculoskeletal: Cervical back: Neck supple. Skin: General: Skin is warm and dry. Neurological: Mental Status: She is alert. Assessment and Plan ASSESSMENT/PLAN: 1. Bronchitis - ICD9: 490, ICD10: J40 (primary diagnosis) Checks x-ray clear on my read, pending radiology read. I did send in prednisone and Tessalon. May use Mucinex dpbj-gqd-xlmmhao as well. Discussed if not improving can add the doxycycline but would wait a few days. COVID testing pending as well. Red flags for ER care discussed. - COVID WITH FLUA+B, ROUTINE - XR CHEST 2V FRONTAL/LAT 2. Type 2 diabetes mellitus without complication, with long-term current use of insulin ([facility]) - ICD9: 250.00, V58.67, ICD10: E11.9, Z79.4 Patient think she is close to being out of her insulin, I did send 1 refill as well as the needles. Follow-up with PCP. - INSULIN HUMAN U-100 NPH-REGULR 70-30 MIX 100 UNIT/ML SUBCUTANEOUS SUSP Clary Mcneil PA-C documented in this encounter [facility] 04-11-2022 Miscellaneous Notes The following approved medication requests have been transmitted electronically. Requested Prescriptions Prescriptions Disp Refills naproxen (NAPROSYN) 500 mg tablet 180 tablet 0 Sig: Take 1 tablet by mouth twice daily as needed (for pain/inflammation). Take with food. Gianfranco Singh MD Patient has been identified by name and date of : Yes Patient phones for refill(s): Requested Prescriptions Pending Prescriptions Disp Refills naproxen (NAPROSYN) 500 mg tablet 180 tablet 0 Sig: Take 1 tablet by mouth twice daily as needed (for pain/inflammation). Take with food. Date of last office visit with pcp: 02/10/2022 Future appt: 09/12/2022 Last 2 Encounter Wt Readings: Date: Wt: 03/18/2022 83.3 kg (183 lb 9.6 oz) 02/11/2022 83 kg (183 lb) Previous labs/tests for medication: Blood Pressure: BUN (mg/dL) Date Value 01/08/2022 13 11/20/2020 14 Sodium (mmol/L) Date Value 01/08/2022 138 11/20/2020 135 Last 1 Encounter BP Readings: Date: BP: 03/18/2022 132/76 Liver Function: ALT (U/L) Date Value 01/08/2022 12 11/20/2020 20 AST (U/L) Date Value 01/08/2022 15 11/20/2020 18 Please advise. Thank you. Steph Olivo RN documented in this encounter [facility] 03-18-2022 History of Present illness Narrative Images from the original note were not included. Subjective Patient came in with complaints of right-sided chin wound. Patient says she gets these often. Patient is unsure of what they are. But patient says it is getting bigger. Patient says it started about 4 days ago. He denies any fever chills nausea vomiting. Patient denies any other symptoms. The history is provided by the patient. No speech language specialist was used. Review of Systems Constitutional: Negative. Skin: Negative. Objective Physical Exam Constitutional: Appearance: Normal appearance. HENT: Head: Comments: Mild amount of swelling noted in area marked above as well as open draining wound. Drainage is clear at this time. Pulmonary: Effort: Pulmonary effort is normal. Neurological: Mental Status: She is alert. PAST MEDICAL HISTORY Diagnosis Date ALCOHOL ABUSE-UNSPEC 08/07/2005 Ankylosing spondylitis (HCC) BIPOLAR DISORDER NOS 08/07/2005 Cervical high risk human papillomavirus (HPV) DNA test positive COPD (chronic obstructive pulmonary disease) (HCC) DEPRESSIVE DISORDER NEC 08/07/2005 Diabetes (HCC) History of cigarette smoking 04/09/2015 IRRITABLE COLON 08/07/2005 Mild dysplasia of cervix 2008 MITRAL VALVE DISORDER 08/07/2005 MYALGIA AND MYOSITIS NOS 08/07/2005 Papanicolaou smear of cervix with atypical squamous cells of undetermined significance (ASC-US) PAST SURGICAL HISTORY Procedure Laterality Date COLONOSCOPY FLX DX W/COLLJ SPEC WHEN PFRMD 01/06/2017 Colonoscopy /[facility] COLPOSCOPY CERVIX UPPER/ADJACENT VAGINA 2008 Colposcopy CONIZATION OF CERVIX; COLD KNIFE/LASER 2014 EXCISION BENIGN TUMOR/CYST 08/09/2019 EXPLORATORY LAPAROTOMY CELIOTOMY W/WO BIOPSY SPX 1998 Laparotomy, exp for endometriosis JOINT REPLACEMENT HX Right 2018 right knee KNEE ARTHROSCOPY/SURGERY Left 10/26 left knee replacement 08/27/09 OFFICE LEEP 2015 positive margins PAST SURGICAL HISTORY OF UMBILICAL HERNIA at 16 months age REGINALDO W/WO REMOVAL TUBE OVARY 2018 VAGINOSCOPY 2015 ALLERGIES Hydrocodone and Penicillins MEDICATIONS clonazePAM (KLONOPIN) 2 mg tablet Take 1 tablet by mouth twice daily as needed for up to 180 days. Each refill is 60 pills per month; with 5 refills this prescription is for 180 days. May fill today moxifloxacin (VIGAMOX) 0.5 % ophthalmic solution Use 1 Drop in the right eye four times daily. Please start 3 days prior to your surgical date keTORolac (ACULAR) 0.5 % ophthalmic solution Use 1 Drop in the right eye four times daily. Please start 3 days prior to your surgical date prednisoLONE acetate (PRED FORTE, ECONOPRED PLUS) 1 % ophthalmic suspension Use 1 Drop in the right eye four times daily. Please start 3 days prior to your surgical date venlafaxine ER (EFFEXOR XR) 150 mg 24 hr capsule One capsule twice daily blood sugar diagnostic test strip One Touch test strips for patient's covered meter--Check 2 to 3 times daily (E11.9, Z79.4) Type 2 diabetes mellitus. Insulin: YES metFORMIN (GLUCOPHAGE) 500 mg tablet Take two metformin with breakfast, one with dinner omeprazole (PRILOSEC) 20 mg capsule Take 1 capsule by mouth once daily. benzonatate (TESSALON PERLES) 100 mg capsule Take 1 capsule by mouth three times daily as needed for cough. albuterol HFA (VENTOLIN HFA) 90 mcg/actuation inhaler Inhale 2 Puffs as instructed every 4 hours as needed for wheezing/shortness of breath. naproxen (NAPROSYN) 500 mg tablet Take 1 tablet by mouth twice daily as needed (for pain/inflammation). Take with food. Insulin Syringe-Needle U-100 0.5 mL 30 gauge x 1/2 1 Each once daily. and as needed. Use one syringe/needle for each dose gabapentin (NEURONTIN) 300 mg capsule Take 1 capsule by mouth three times daily. propranolol (INDERAL) 40 mg tablet Take 1 tablet by mouth three times daily. atorvastatin (LIPITOR) 10 mg tablet Take 1 tablet by mouth once daily. insulin NPH-insulin regular injection (HumuLIN, NovoLIN 70/30) Inject 12 Units subcutaneously daily with breakfast. cyanocobalamin (VITAMIN B-12) 100 mcg tab Take 100 mcg by mouth once daily. zinc sulfate (ZINC-15 ORAL) Take by mouth. Ascorbic Acid 1,000 mg tablet Take 1,000 mg by mouth once daily. Pwwgwngcevkso-Rmnoxdjy-Rndeuj (MULTIVITAMIN 50 PLUS) tab Take 1 tablet by mouth once daily. Cholecalciferol, Vitamin D3, 5,000 unit cap Take 1 capsule by mouth once daily. Lancets (ONETOUCH ULTRASOFT LANCETS) lancets Use one lancet daily . Use as instructed dx. E 11.9 Blood-Glucose Meter (ONETOUCH ULTRA2) monitoring kit 1 Each as needed (Test 2-3 times a day or as needed). One Touch Meter Kit Diagnosis: Diabetes Mellitus aspirin, enteric coated 81 mg ORAL EC tablet doxycycline (VIBRA-TABS) 100 mg tablet Take 1 tablet by mouth twice daily for 10 days. clonazePAM (KLONOPIN) 2 mg tablet Take 1 tablet by mouth twice daily as needed for up to 30 days. FAMILY HISTORY Adopted: Yes Problem Relation Age of Onset Arthritis Mother Rhematoid Asthma Mother Alcohol/Drug Mother Alcohol/Drug Brother Alcohol/Drug Sister other (patient adopted) Sister Social History Tobacco Use Smoking status: Former Packs/day: 0.20 Years: 15.00 Pack years: 3.00 Types: Cigarettes Quit date: 07/11/2018 Years since quittin.6 Smokeless tobacco: Former Tobacco comments: Pt states she smokes 2-4 EVAP cigarettes. Substance Use Topics Alcohol use: No Comment: recovering alcoholic- sober as of 01/15/2006 Drug use: No Comment: cocaine- sober as of 01/15/2006 ASSESSMENT/PLAN: 1. Open wound - ICD9: 879.8, ICD10: T14.8XXA - WOUND CULTURE AND GRAM STAIN Patient was started on doxycycline twice a day for 10 days. Wound culture was sent out so if anything needs changed when the culture comes back it will be done at that time. Patient was educated about red flag symptoms such as developing a fever increasing in size or pain at the wound site. Patient to go to the ER if this happens. Patient is going to follow-up with dermatology as she said she gets lots of these and they happen often in the armpits and the groins and her face. Arlene Fay APRN.ODILON documented in this encounter [facility] 03-11-2022 Miscellaneous Notes The following approved medication requests have been transmitted electronically. Requested Prescriptions Signed Prescriptions Disp Refills clonazePAM (KLONOPIN) 2 mg tablet 60 tablet 5 Sig: Take 1 tablet by mouth twice daily as needed for up to 180 days. Each refill is 60 pills per month; with 5 refills this prescription is for 180 days. May fill today Authorizing Provider: GIANFRANCO SINGH MD Patient has been identified by name and date of : Yes Last office visit in this department: 01/24/2022 RX INSTRUCTIONS: Patient aware RX will be sent to pharmacy. No need to notify patient. Patient phones requesting refills as follows: Requested Prescriptions Pending Prescriptions Disp Refills clonazePAM (KLONOPIN) 2 mg tablet 10 tablet 0 Sig: Take 1 tablet by mouth twice daily as needed for anxiety for up to 5 days. Please review and advise. PILY Bryant documented in this encounter [facility] 02-26-2022 Miscellaneous Notes Addended by: ELINA CORDOVA on: 02/26/2022 06:03 PM Modules accepted: Orders documented in this encounter [facility] 02-26-2022 Instructions Elian Cordova MD - 02/26/2022 4:20 PM EDT Images from the original note were not included. Pre-Op Instructions for patients of Dr. Elian Cordova 2 days prior to surgery start: Prednisolone acetate-use one drop four times a day in operative eye Moxifloxacin- use one drop four times each day in operative eye Ketorolac - use one drop four times each day in operative eye You may use the drops in any order, but close your eye for 5 minutes after each drop. Continue to use any previous eye drops unless instructed otherwise. Day of Surgery: Do not eat or drink anything 8 hours prior to procedure time. Take all of your morning medication with only enough water to swallow them unless instructed otherwise by Dr. Cordova or Primary Care physician. Get one drop of Moxifloxacin and Ketorolac in the operative eye prior to arriving at the surgery center. After your surgery: Do not remove your eye shield at home, except to instill your medication eye drops. Your eye shield will be removed in the office the following day. No heavy lifting or bending from the waist. Limit your activity. Avoid bumping or rubbing the operative eye. You will be given instructions in the surgery center about starting the three eyedrops after surgery. Call the office if you have any questions or concerns at , option 1. If the call is after business hours you will automatically connect with the answering service and they will contact your doctor as needed documented in this encounter [facility] 02-26-2022 History of Present illness Narrative Assessment and Plan 1. Combined form of age-related cataract, both eyes Cataract Presurgical Documentation Cataract: Right eye (OD) Current Visual Acuity Right Eye Distance CC 20/50 Left Eye Distance CC 20/50 Glare Testing: Visual Function: Twyla Escalona states that the decline in vision from the cataract impedes her abilities as listed in the HPI, as well as other activities of daily living. Twyla Escalona has confirmed that she is no longer able to function adequately on a day-to-day basis because of her current visual condition. Further, it is my medical opinion that the cataract is the primary cause, or at least a significantly contributory cause of her visual dysfunction. With uncomplicated cataract surgery and lens implantation, it is my expectation that her visual function and quality of life will improve, significantly. The risks, benefits, alternatives, personnel and complications of cataract surgery with lens implantation were discussed with Twyla Escalona in detail. she appeared to understand and asked that I proceed with plans for surgery. 2. Glaucoma suspect of both eyes -good intraocular pressure -large cup to disc both eyes -adopted (limited family history ) 3. Ankylosing spondylitis, unspecified site of spine (HCC) -history of iritis x2 -last was in her 30s 4. Type 2 diabetes mellitus without retinopathy ([facility]) -no diabetic retinopathy both eyes 5. Punctate keratitis, bilateral -mild symptoms both eyes Plan: -Continue blood sugar and blood pressure control Cataract: Right eye (OD) Aim -0.25 SA6ATx power + Flomax N Diabetes Y Glaucoma N - suspect Astigmatism Y Pentacam Regular - interested in toric intraocular lens Refractive surgery N Fuchs N Trypan blue possible, dense cortical component Malyugin ring N Other Ankylosing spondylitis I have confirmed and edited as necessary the relevant ophthalmic history, ROS, and the neuro exam findings as obtained by others. I have seen and examined Twyla Escalona. I have discussed the case and the management of this patient's care with the Resident/Fellow, if applicable. I also have reviewed and agree with the assessment and plan as stated above and agree with all of its relevant components. Elian Cordova MD February 26, 2022 4:02 PM documented in this encounter [facility] 02-11-2022 History of Present illness Narrative 1. Cortical age-related cataract, bilateral 2. Nuclear sclerosis of both eyes +visual significance OD>OS Recommend cataract surgery-refer to Dr. Cordova in 2-3 weeks -patient interested in toric correction for distance both eyes 3. Glaucoma suspect of both eyes IOP: 13/15 Large C/D OS>OD OCT: superior loss right eye +myopic nerve 4. Type 2 diabetes mellitus without retinopathy (HCC) No visible retinopathy Difficult views d/t cataract Risk of diabetic changes and vision loss can be minimized by tight control of blood sugar, blood pressure, and cholesterol levels. Educated patient to continue care with primary care doctor and/or steamfitter apprentice to maintain optimum levels as they are important to avoid ocular complications. Encouraged patient to call the office immediately with any changes to vision or visual concerns. Advised to not wait until the next scheduled exam. 5. Myopia, bilateral 6. Regular astigmatism of both eyes 7. Presbyopia No spec correction change 8. Punctate keratitis both eyes Use artificial tears both eyes 3-4 times daily Plan: Refer for cataract evaluation OD>OS and me after for glaucoma work-up Caridad Diaz, OD February 11, 2022 3:08 PM documented in this encounter [facility] 02-11-2022 History of Present illness Narrative PULM FUNCTION SMARTBLOCK: Provider: Laith Galarza APRN.MARKET INVESTIGATOR Assisting Tech: MYESHA Gaitan Spirometry w/BD: 1 documented in this encounter [facility] 02-10-2022 History of Present illness Narrative Objective: LOLIS Escalona is a 61 year old female. PMH significant for ACTIVE PROBLEM LIST Depressive Disorder Mitral Valve Disorders(424.0) Malaise and Fatigue Irritable Bowel Syndrome Bipolar Disorder, Unspecified (Hcc) History of Alcohol Dependence (Hcc) Chondromalacia of Patella Other and Unspecified Derangement of Medial Meniscus Copd (Chronic Obstructive Pulmonary Disease) (Hcc) Dm (Diabetes Mellitus) (Hcc) Displacement of Lumbar Intervertebral Disc Without Myelopathy Sciatica Ankylosing Spondylitis (Hcc) Tbi (Traumatic Brain Injury) (Hcc) Chronic Post-Traumatic Stress Disorder Dilated Cbd, Acquired Dyslipidemia Associated With Type 2 Diabetes Mellitus (Hcc) Vitamin D Deficiency Note Covid19 positive 01/25/2022. Symptoms improved with prior treatment, with cough continuing on now productive. She notes fatigue persisting. Other symptoms have improved overall. Notes that she thinks COPD/bronchitis is exacerbated due to the viral infection. DIABETES MELLITUS: Without report of excessive thirst or increased frequency of urination, chest pain or dyspnea , numbness, tingling or pain in extremities, new or unusual visual symptoms, low sugar/hypoglycemic reactions, weight loss/gain, lightheadedness/dizziness and bowel changes/loose stools.Notes that she was not taking insulin for the last 6 months due to well controlled. Now with stress and BS not well controlled. Resumed 70/30 daily for the last few days. Patient's last HgA1C was Hemoglobin A1C (%) Date Value 01/08/2022 7.2 11/20/2020 7.3 04/18/2020 7.9 HTN: Without report of headache, chest pain, palpitations, dyspnea, peripheral edema, orthopnea, fatigue and PND. Last 3 Encounter BP Readings: Date: BP: 01/24/2022 120/72 11/07/2021 122/68 08/08/2021 118/78 Hyperlipidemia. Ms. Escalona reports doing well on current therapy. Her most recent lipid panels are: Cholesterol, Total (mg/dL) Date Value 12/24/2018 145 06/22/2017 178 Total Cholesterol, Nonfasting (mg/dL) Date Value 01/08/2022 146 11/20/2020 176 HDL Cholesterol (mg/dL) Date Value 12/24/2018 40 06/22/2017 39 HDL Cholesterol, Nonfasting (mg/dL) Date Value 01/08/2022 36 11/20/2020 38 LDL Cholesterol (mg/dL) Date Value 12/24/2018 42 06/22/2017 95 LDL Cholesterol, Nonfasting (mg/dL) Date Value 01/08/2022 37 11/20/2020 76 Triglyceride (mg/dL) Date Value 12/24/2018 317 06/22/2017 218 Triglycerides, Nonfasting (mg/dL) Date Value 01/08/2022 366 11/20/2020 310 Back pain: Stable on current treatment. Currently effective. No adverse effects noted. Depression/bipolar: mood is stable on current treatment, no voiced SI HI. No reported EtOH use. HISTORY REVIEWED: - medical history - medications - allergies REVIEW OF SYSTEMS: GENERAL: positive for fatigue. no recent change in weight, no fever RESPIRATORY: positive for cough. no wheezing or shortness of breath CARDIOVASCULAR: no chest pain, no palpitations, no leg swelling ENDOCRINE: denies polyuria or polydipsia, blood sugar checks at home: FBS today 197, last night 154; notes mid day can be 200-300 PHYSICAL EXAMINATION: BP 124/68 Pulse 64 Resp 16 Wt 81.2 kg (179 lb) LMP 02/14/2007 SpO2 97% BMI 27.22 kg/m General appearance: Well appearing, alert, in no acute distress, well-hydrated, well nourished. Skin: Skin color, texture, turgor andreina. Head: Normocephalic. Eyes: Anicteric sclera. Neck: no adenopathy; thyroid symmetric, normal size, no bruits Lungs: Lungs clear to auscultation. No wheezing, rhonchi, rales. Heart: RRR without murmur, gallop, or rubs. No ectopy Abdomen: Abdomen soft, non-tender. Bowel sounds normal. No masses, organomegaly Extremities: No deformities, edema, Good capillary refill. Peripheral pulses: Normal Neuro: Gait normal. Sensation grossly intact. Component Latest Ref Rng & Units 11/20/2020 01/08/2022 WBC 3.70 - 11.00 k/uL 7.36 9.20 RBC 3.90 - 5.20 m/uL 4.39 4.36 Hemoglobin 11.5 - 15.5 g/dL 12.2 12.0 Hematocrit 36.0 - 46.0 % 36.5 36.4 MCV 80.0 - 100.0 fL 83.1 83.5 MCH 26.0 - 34.0 pg 27.8 27.5 MCHC 30.5 - 36.0 g/dL 33.4 33.0 RDW-CV 11.5 - 15.0 % 13.4 13.3 Platelet Count 150 - 400 k/uL 239 228 MPV 9.0 - 12.7 fL 10.1 10.2 Neut% % 56.4 Abs Neut (ANC) 1.45 - 7.50 k/uL 4.13 Lymph% % 32.5 Abs Lymph 1.00 - 4.00 k/uL 2.39 Tipton% % 6.5 Abs [place]on <0.87 k/uL 0.48 Eosin% % 3.9 Abs Eosin <0.46 k/uL 0.29 Baso% % 0.7 Abs Baso <0.11 k/uL 0.05 Nucleated Reds 0 /100 WBC 0.0 Absolute nRBC <0.01 k/uL <0.01 <0.01 Diff Type Auto Diff Protein, Total 6.3 - 8.0 g/dL 6.6 Albumin 3.9 - 4.9 g/dL 4.0 Calcium 8.5 - 10.2 mg/dL 8.8 Bilirubin, Total 0.2 - 1.3 mg/dL 0.3 Alkaline Phosphatase 34 - 123 U/L 116 AST 13 - 35 U/L 15 ALT 7 - 38 U/L 12 Glucose 74 - 99 mg/dL 130 (H) BUN 7 - 21 mg/dL 13 Creatinine 0.58 - 0.96 mg/dL 0.58 Sodium 136 - 144 mmol/L 138 Potassium 3.7 - 5.1 mmol/L 4.0 Chloride 97 - 105 mmol/L 104 CO2 22 - 30 mmol/L 23 Anion Gap 9 - 18 mmol/L 11 eGFR >=60 mL/min/1.73m 104 Total Cholesterol, Nonfasting <200 mg/dL 176 146 Triglycerides, Nonfasting <150 mg/dL 310 (H) 366 (H) HDL Cholesterol, Nonfasting >39 mg/dL 38 (L) 36 (L) LDL Cholesterol, Nonfasting <100 mg/dL 76 37 Non HDL Cholesterol, Nonfasting <130 mg/dL 138 (H) 110 VLDL Cholesterol, Nonfasting <30 mg/dL 62 (H) 73 (H) Total Chol/HDL Ratio, Nonfasting <5.10 mg/dL 4.63 4.06 LDL/HDL Ratio, Nonfasting <2.54 mg/dL 2.00 1.03 Creatinine, Ur Random (UCRR) 20 - 300 mg/dL 97.9 Albumin, Urine Random mg/L <12.0 Albumin/Creat Ratio <30 mg/g Not calculated Hemoglobin A1C 4.3 - 5.6 % 7.3 (H) 7.2 (H) Estimated Average Glucose mg/dL 163 160 Magnesium 1.7 - 2.3 mg/dL 1.7 Vitamin D 25 Hydroxy 31.0 - 80.0 ng/mL 34.9 ASSESSMENT: (E11.9, Z79.4) Type 2 diabetes mellitus without complication, with long-term current use of insulin (HCC) (primary encounter diagnosis) (J44.9) Chronic obstructive pulmonary disease, unspecified COPD type (HCC) (Z23) Need for shingles vaccine (Z12.4) Screening for cervical cancer (Z23) Encounter for immunization (Z13.5) Screening for diabetic retinopathy (J44.1) COPD with exacerbation (HCC) (H26.9) Cataract of both eyes, unspecified cataract type (Z86.69) History of glaucoma (E11.69, E78.5) Dyslipidemia associated with type 2 diabetes mellitus (HCC) (M45.9) Ankylosing spondylitis, unspecified site of spine (HCC) (F10.21) History of alcohol dependence ([facility]) (F31.75) Bipolar disorder, in partial remission, most recent episode depressed ([facility]) (U07.1) COVID-19 PLAN: 1. Type 2 diabetes mellitus without complication, with long-term current use of insulin (HCC) - ICD9: 250.00, V58.67, ICD10: E11.9, Z79.4 (primary diagnosis) Diabetes currently controlled. Continue with current treatment unchanged for now. Continue to monitor 2. Chronic obstructive pulmonary disease, unspecified COPD type (HCC) - ICD9: 496, ICD10: J44.9 - [id number] BL 5. Encounter for immunization - ICD9: V03.89, ICD10: Z23 - PFIZER-BIONTECH COVID-19 VACCINE, AGE 12+ YR ([facility]) 6. Screening for diabetic retinopathy - ICD9: V80.2, ICD10: Z13.5 7. COPD with exacerbation (HCC) - ICD9: 491.21, ICD10: J44.1 She notes interest in seeing a location man. Consult placed. She notes bronchitis seems worse following COVID. Treating with azithromycin - SPIROMETRY - BASELINE AND POST DILATOR - [id number] BL - AZITHROMYCIN 250 MG TABLET - CONSULT TO PULMONARY MEDICINE 8. Cataract of both eyes, unspecified cataract type - ICD9: 366.9, ICD10: H26.9 9. History of glaucoma - ICD9: V12.49, ICD10: Z86.69 She notes history of cataracts and glaucoma, would like to see [facility] provider. - CONSULT TO OPHTHALMOLOGY 10. Dyslipidemia associated with type 2 diabetes mellitus (HCC) - ICD9: 250.80, 272.4, ICD10: E11.69, E78.5 Taking statin, triglycerides are mildly elevated. Endorse avoidance of excess carbohydrates and fatty sugars 11. Ankylosing spondylitis, unspecified site of spine (HCC) - ICD9: 720.0, ICD10: M45.9 Back pain currently controlled, continue current treatment unchanged, continue to monitor 12. History of alcohol dependence (HCC) - ICD9: 303.93, ICD10: F10.21 No currently reported use, continue to monitor 13. Bipolar disorder, in partial remission, most recent episode depressed (HCC) - ICD9: 296.55, ICD10: F31.75 Mood is stable, continue current treatment unchanged, continue to monitor 14. COVID-19 - ICD9: 079.89, ICD10: U07.1 Notes that she feels as if she is improving however cough and fatigue are persisting. visit with PCP an labs 6 mos Laith Galarza APRN.CNS Medical Decision Making: Problems: Moderate: Acute illness with systemic symptoms and 2+ stable chronic illnesses Data: Unique test(s) ordered: 3+ Risk: Moderate: Drug management Medical Decision Making Level: 4 - Moderate documented in this encounter [facility] 02-07-2022 Miscellaneous Notes Patient has been identified by name and date of : Yes Patient phones for refill(s): Pending Prescriptions Disp Refills BLOOD SUGAR DIAGNOSTIC STRIPS 300 Strip 3 Sig: One Touch test strips for patient's covered meter--Check 2 to 3 times daily (E11.9, Z79.4) Type 2 diabetes mellitus. Insulin: YES MARJORIE: No Date of last office visit in primary care: 01/28/22 Last 2 Encounter Wt Readings: Date: Wt: 01/24/2022 81.6 kg (180 lb) 11/07/2021 81.6 kg (180 lb) Previous labs/tests for medication: Not applicable Please advise. Thank you. Caprice Reynolds LPN documented in this encounter [facility] 02-05-2022 Miscellaneous Notes The following approved medication requests have been transmitted electronically. Signed Prescriptions Disp Refills clonazePAM (KLONOPIN) 2 mg tablet 60 tablet 0 Sig: Take 1 tablet by mouth twice daily as needed for up to 30 days. REYNA Class: C-IV MARJORIE: No Authorizing Provider: GIANFRANCO SINGH metFORMIN (GLUCOPHAGE) 500 mg tablet 270 tablet 3 Sig: Take two metformin with breakfast, one with dinner MARJORIE: No Authorizing Provider: GIANFARNCO SINGH omeprazole (PRILOSEC) 20 mg capsule 90 capsule 3 Sig: Take 1 capsule by mouth once daily. MARJORIE: No Authorizing Provider: GIANFRANCO SINGH MD patient is calling in stating that she is out of medication and would like this refilled today as she took last dose yesterday morning. patient is wanting this filled tonight and wants called when completed Pt also needs the following meds. Omeprazole and Metformin. Pt also wants to know if she should be on another round of medication for bronchitis. Cough is persisting and her mucous is turning yellowish green . Please advise pt. Patient has been identified by name and date of : Yes Patient phones for refill(s): Pending Prescriptions Disp Refills CLONAZEPAM 2 MG TABLET 60 tablet 0 Sig: Take 1 tablet by mouth twice daily as needed for up to 30 days. REYNA Class: C-IV MARJORIE: No METFORMIN 500 MG TABLET 270 tablet 3 Sig: Take two metformin with breakfast, one with dinner MARJORIE: No OMEPRAZOLE 20 MG CAPSULE,DELAYED RELEASE 90 capsule 3 Sig: Take 1 capsule by mouth once daily. MARJORIE: No Date of last office visit in primary care: 01/28/22 next apt 02/10/22 Last 2 Encounter Wt Readings: Date: Wt: 01/24/2022 81.6 kg (180 lb) 11/07/2021 81.6 kg (180 lb) Previous labs/tests for medication: Diabetes: Hemoglobin A1C (%) Date Value 01/08/2022 7.2 11/20/2020 7.3 04/18/2020 7.9 Please advise. Thank you. Dominique Arellano LPN AMIE: 01/28/2022 [facility] Last refill: 01/03/2022 QTY: 60 Refills: 0 Patient phones requesting refills as follows: Pending Prescriptions Disp Refills CLONAZEPAM 2 MG TABLET 60 tablet 0 Sig: Take 1 tablet by mouth twice daily as needed for up to 30 days. REYNA Class: C-IV MARJORIE: No Please review and advise. Tristan Galeana Ma Patient has been identified by name and date of : Yes Pending Prescriptions Disp Refills CLONAZEPAM 2 MG TABLET 60 tablet 0 Sig: Take 1 tablet by mouth twice daily as needed for up to 30 days. REYNA Class: C-IV MARJORIE: No RX INSTRUCTIONS: Patient aware RX will be sent to pharmacy. No need to notify patient. Luana Batse documented in this encounter [facility] 02-04-2022 Miscellaneous Notes The following approved medication requests have been transmitted electronically. Signed Prescriptions Disp Refills clonazePAM (KLONOPIN) 2 mg tablet 10 tablet 0 Sig: Take 1 tablet by mouth twice daily as needed for anxiety for up to 5 days. REYNA Class: C-IV MARJORIE: No PDMP website checked and validated. All prescriptions have been APPROPRIATELY filled. No suspicious activity was identified. 02/04/2022 by Tyler Ridley DO Alert that the patient was provided 5 days of Clonazepam to avoid seizure or withdrawal symptoms Patient made aware not to call after hours for refills at any time ALBANIA Ridley DO Patient calling with medication/refill: Patient/caregiver requesting refill of clonazepam 2 mg to be called to [facility] pharmacy at [address] in [place], Do you have enough medication to last until the office reopens? No. and Have you contacted your pharmacy to ask for enough medication to get by until the office reopens? No. . Patient denies any new or worsening symptoms of which a provider is not aware:Yes. Patient has may multiple attempts to reach out provider with no responds. Transfer to office were they stated that the request was send but they would try again. Patient asked if NOC could reach out to the environmental systems coordinator. Contacted Dr. Tyler Ridley DO who stated that he would fill the prescription for 10 tablets and the patient need to call office in the morning. The order was routed to provider and patient was called back to inform her that he would fill medication within an hour. documented in this encounter [facility] 02-03-2022 History of Present illness Narrative POPULATION HEALTH NAVIGATION OUTREACH Action/FYI Left patient voicemail message to return my call. My chart message sent To notify patient of lab orders placed. Pt identified by name and : NO Outreach Outcome/Action Unable to reach patient: Left message MyChart message sent Did you use a PCP flex slot to schedule this appointment? N/A Navigation Signature: Lindy Figueroa MA February 03, 2022 8:55 AM Lab order dated out 4 weeks so okay for about 3 months from now POPULATION HEALTH NAVIGATION OUTREACH Action/FYI Dr. Singh, Please file albumin lab order for care gap Pt identified by name and : NO Navigation Signature: Lindy Figueroa MA January 31, 2022 8:10 AM POPULATION HEALTH NAVIGATION OUTREACH Action/FYI Tried to call patient, Unable to leave a message mailbox was full Sent my chart message Mammogram Diabetic retinal exam Follow up needs rescheduled 01/03/22 PCP appointment was no show or canceled Pended albumin lab order sent to PCP for filing AD on file in Epic Pt identified by name and : NO Outreach Outcome/Action Unable to reach patient: Phone number not valid / voicemail full [employer]Slu[employer] message sent Did you use a PCP flex slot to schedule this appointment? N/A Reason for Outreach Care Gap or Scheduling/Wellness visits Payer: Payor: [employer] / Plan: [employer] HMO / Product Type: HMO / Care Gap Reviewed:: Follow-up appointment Breast Cancer screening Diabetic Eye Exam Nephropathy (Albumin/Creatinine) Urine Reminder: Reminder note to check Health Maintenance for items below Health Maintenance items due: SPIROMETRY Never done SHINGRIX VACCINE(1 of 2) Never done MAMMOGRAM due on 11/28/2015 DIABETIC FOOT EXAM due on 06/13/2017 PAP TESTING due on 11/28/2019 HPV TESTING due on 11/29/2019 COVID-19 VACCINE(3 - Booster for Pfizer series) due on 04/03/2021 DILATED RETINAL EXAM due on 05/11/2021 URINE ALBUMIN:CREATININE RATIO due on 11/20/2021 Message Sent to Practice: No Navigation Signature: Lindy Figueroa MA January 31, 2022 8:25 AM documented in this encounter [facility] 01-28-2022 Miscellaneous Notes See office note Patient calling with request for appointment to discuss COVID treatment/therapies. Her symptoms began on January 23. She was seen in on 01/24 and tested positive for COVID. She asked about antiviral medication. Advised needs to be started within 5 days of start of symptoms. She says she would like an appointment to discuss MAB if not eligible for antiviral. Scheduled with Laith tomorrow. Maribel Cobos RN documented in this encounter [facility] 01-28-2022 History of Present illness Narrative Telemedicine Evaluation for COVID-19 Infection MyChart video visit was used for evaluation of this patient. Location of patient: [facility] Twyla Escalona is a 61 year old female who presents with 5 days of symptoms that are worsening. Symptoms include: Fever (?100.4F): Yes or Chills: Yes Cough: Yes, productive Shortness of breath: Yes or Difficulty breathing: No Fatigue: Yes Muscle aches: Yes Headache: Yes New loss of smell or taste: No Sore throat: Yes Nasal congestion: Yes or Rhinorrhea: Yes Nausea: Yes or Vomiting: No Diarrhea: No OTC meds/remedies that patient has tried: acetaminophen and cough drops High risk category assessment Age > 60 years old Exposures: Sick contacts? Yes Family or close contacts with confirmed/probable COVID-19 in last 14 days? Yes She reports that she quit smoking about 3 years ago. Her smoking use included cigarettes. She has a 3.00 pack-year smoking history. She has never used smokeless tobacco. OBJECTIVE VIDEO EXAM (if available) no vitals GENERAL: Ill-appearing, but non-toxic HEENT: no conjunctival injection, pupils equal, moist mucous membranes and no cervical adenopathy by self-palpation PULMONARY: breathing comfortably on room air , coughing and audible wheezing ASSESSMENT/PLAN (J44.1) COPD with exacerbation (HCC) - Meets symptom-based criteria for testing and is high risk. - Discussed symptom monitoring and supportive care - Red flag symptoms requiring follow up discussed Nirmatrelvir/Ritonavir (Paxlovid) Eligibility and [facility]: Adult outpatients 18 years and older with ALL of the following: [x] Patient has positive SARS-COV-2 viral test (PCR or antigen test) during current illness [x] Patient has symptoms for 5 days or less [x] Not requiring hospitalization at any time for management of COVID-19 [x] Not requiring supplemental oxygen or a change in baseline supplemental oxygen[x] Not utilized for pre-exposure or post-exposure prophylaxis for prevention of COVID-19 [x] Patient does not have severe renal impairment (eGFR < 30 mL/min) or severe hepatic impairment (Child-Crawford Class C) [] Meeting at least one of the criteria for high risk of progression to severe COVID-19: [] Age over 65 years [] Cancer [] Chronic kidney disease [] Chronic liver disease [x] Chronic lung diseases, including cystic fibrosis [] Dementia or other neurological conditions [x] Diabetes (type 1 or type 2) [] Disabilities, including Down syndrome and neurodevelopmental disorders [] Heart conditions [] HIV infection [] Immunocompromised state [] Mental health conditions [] Medical related technological dependence (tracheostomy, gastrostomy, or positive pressure ventilation (not related to COVID) [] Overweight and obesity (BMI greater or equal to 25 for adults) [] Physical inactivity [] [] Sickle cell disease or thalassemia [] Smoking, current or former [] Solid organ or blood stem cell transplant [] Stroke or cerebrovascular disease [] Substance use disorders [] Tuberculosis [] People from racial and ethnic minority groups Criteria above are met: Yes Date of Positive Test: 01/24/2022 Date of Symptom Onset: 01/23/2022 Patient received COVID vaccine: Yes Drug-Drug interactions reviewed: Yes. Drug interactions were identified and the following actions were taken .. Not taking prednisone currently. Advised holding Lipitor while taking Paxlovid then resume once completed I have discussed the use of the investigational therapeutic, nirmatrelvir/ritonavir, for the treatment of mild to moderate COVID-19 and its use under Emergency Use Authorization with the patient. The patient was informed that nirmatrelvir/ritonavir is not an FDA approved drug and that it is authorized for use under this Emergency Use Authorization. The patient was also informed of the significant known benefits and potential risks of nirmatrelvir/ritonavir, and the extent to which such potential risks and benefits are unknown. The patient was informed that there is mandatory reporting of all medication errors and serious adverse events potentially related to nirmatrelvir/ritonavir treatment within 7 calendar days from the onset of the event and that events up to 28 days after completion of therapy need to be reported. The discussion included alternatives to receiving nirmatrelvir/ritonavir, including clinical trials, and potential the risks and benefits of those alternatives. The patient was provided electronically with the Fact Sheet for Patients, Parents and Caregivers . The patient was also instructed that in addition to the treatment with nirmatrelvir/ritonavir, he/she should continue to self-isolate and use infection control measures (e.g., wear mask, isolate, social distance, avoid sharing personal items, clean and disinfect high touch surfaces, and frequent handwashing) according to CDC guidelines. The patient stated understanding and gave verbal consent to proceeding with nirmatrelvir/ritonavir treatment. Laith Galarza APRN.CNS January 28, 2022 1:42 PM 20 min in visit documented in this encounter [facility] 01-28-2022 Instructions Laith Galarza APRN.CNS - 01/28/2022 1:03 PM EDT FACT SHEET FOR PATIENTS, PARENTS, AND CAREGIVERS EMERGENCY USE AUTHORIZATION (EUA) OF PAXLOVID FOR CORONAVIRUS DISEASE 2019 (COVID-19) You are being given this Fact Sheet because your healthcare provider believes it is necessary to provide you with PAXLOVID for the treatment of iueu-[id number] coronavirus disease (COVID-19) caused by the SARS-CoV-2 virus. This Fact Sheet contains information to help you understand the risks and benefits of taking the PAXLOVID you have received or may receive. The U.S. Food and Drug Administration (FDA) has issued an Emergency Use Authorization (EUA) to make PAXLOVID available during the COVID-19 pandemic (for more details about an EUA please see What is an Emergency Use Authorization? at the end of this document). PAXLOVID is not an FDA-approved medicine in the [place]. Read this Fact Sheet for information about PAXLOVID. Talk to your healthcare provider about your options or if you have any questions. It is your choice to take PAXLOVID. What is COVID-19? COVID-19 is caused by a virus called a coronavirus. You can get COVID-19 through close contact with another person who has the virus. COVID-19 illnesses have ranged from very [id number], including illness resulting in . While information so far suggests that most COVID-19 illness is mild, serious illness can happen and may cause some of your other medical conditions to become worse. Older people and people of all ages with severe, long lasting (chronic) medical conditions like heart disease, lung disease, and diabetes, for example seem to be at higher risk of being hospitalized for COVID-19. What is PAXLOVID? PAXLOVID is an investigational medicine used to treat jnjc-cm-srumuygg COVID-19 in adults and children [12 years of age and older weighing at least 88 pounds (40 kg)] with positive results of direct SARS-CoV-2 viral testing, and who are at high risk for progression to severe COVID-19, including hospitalization or . PAXLOVID is investigational because it is still being studied. There is limited information about the safety and effectiveness of using PAXLOVID to treat people with ofio-jp-usvdzlhh COVID-19. The FDA has authorized the emergency use of PAXLOVID for the treatment of pdqp-wd-sdsfbklm COVID-19 in adults and children [12 years of age and older weighing at least 88 pounds (40 kg)] with a positive test for the virus that causes COVID-19, and who are at high risk for progression to severe COVID-19, including hospitalization or , under an EUA. 1 Revised: 04 October 2021 What should I tell my healthcare provider before I take PAXLOVID? Tell your healthcare provider if you: Have any allergies Have liver or kidney disease Are or plan to become Are a child Have any serious illnesses Tell your healthcare provider about all the medicines you take, including prescription and tqoh-qbs-zwwsiiz medicines, vitamins, and herbal supplements. Some medicines may interact with PAXLOVID and may cause serious side effects. Keep a list of your medicines to show your healthcare provider and pharmacist when you get a new medicine. You can ask your healthcare provider or pharmacist for a list of medicines that interact with PAXLOVID. Do not start taking a new medicine without telling your healthcare provider. Your healthcare provider can tell you if it is safe to take PAXLOVID with other medicines. Tell your healthcare provider if you are taking combined hormonal contraceptive. PAXLOVID may affect how your control pills work. Females who are able to become should use another effective alternative form of contraception or an additional barrier method of contraception. Talk to your healthcare provider if you have any questions about contraceptive methods that might be right for you. How do I take PAXLOVID? PAXLOVID consists of 2 medicines: nirmatrelvir and ritonavir. Take 2 pink tablets of nirmatrelvir with 1 white tablet of ritonavir by mouth 2 times each day (in the morning and in the evening) for 5 days. For each dose, take all 3 tablets at the same time. If you have kidney disease, talk to your healthcare provider. You may need a different dose. Swallow the tablets whole. Do not chew, break, or crush the tablets. Take PAXLOVID with or without food. Do not stop taking PAXLOVID without talking to your healthcare provider, even if you feel better. If you miss a dose of PAXLOVID within 8 hours of the time it is usually taken, take it as soon as you remember. If you miss a dose by more than 8 hours, skip the missed dose and take the next dose at your regular time. Do not take 2 doses of PAXLOVID at the same time. If you take too much PAXLOVID, call your healthcare provider or go to the nearest hospital emergency room right away. If you are taking a ritonavir-or cobicistat-containing medicine to treat hepatitis C or Human Immunodeficiency Virus (HIV), you should continue to take your medicine as prescribed by your healthcare provider. Talk to your healthcare provider if you do not feel better or if you feel worse after 5 days. Who should generally not take PAXLOVID? Do not take PAXLOVID if: You are allergic to nirmatrelvir, ritonavir, or any of the ingredients in PAXLOVID You are taking any of the following medicines: Alfuzosin Pethidine, propoxyphene Ranolazine Amiodarone, dronedarone, flecainide, propafenone, quinidine Colchicine Lurasidone, pimozide, clozapine Dihydroergotamine, ergotamine, methylergonovine Lovastatin, simvastatin Sildenafil (Revatio ) for pulmonary arterial hypertension (PAH) Triazolam, oral midazolam Apalutamide Carbamazepine, phenobarbital, phenytoin Rifampin Leana s Wort (hypericum perforatum) Taking PAXLOVID with these medicines may cause serious or life-threatening side effects or affect how PAXLOVID works. These are not the only medicines that may cause serious side effects if taken with PAXLOVID. PAXLOVID may increase or decrease the levels of multiple other medicines. It is very important to tell your healthcare provider about all of the medicines you are taking because additional laboratory tests or changes in the dose of your other medicines may be necessary while you are taking PAXLOVID. Your healthcare provider may also tell you about specific symptoms to watch out for that may indicate that you need to stop or decrease the dose of some of your other medicines. What are the important possible side effects of PAXLOVID? Possible side effects of PAXLOVID are: Allergic Reactions. Allergic reactions can happen in people taking PAXLOVID, even after only 1 dose. Stop taking PAXLOVID and call your healthcare provider right away if you get any of the following symptoms of an allergic reaction: hives trouble swallowing or breathing swelling of the mouth, lips, or face throat tightness hoarseness skin rash Liver Problems. Tell your healthcare provider right away if you have any of these signs and symptoms of liver problems: loss of appetite, yellowing of your skin and the whites of eyes (jaundice), dark-colored urine, pale colored stools and itchy skin, stomach area (abdominal) pain. Resistance to HIV Medicines. If you have untreated HIV infection, PAXLOVID may lead to some HIV medicines not working as well in the future. Other possible side effects include: altered sense of taste diarrhea high blood pressure muscle aches These are not all the possible side effects of PAXLOVID. Not many people have taken PAXLOVID. Serious and unexpected side effects may happen. PAXLOVID is still being studied, so it is possible that all of the risks are not known at this time. What other treatment choices are there? Abaury (remdesivir) is FDA-approved for the treatment of lhhf-pw-cuiewyej COVID-19 in certain adults and children. Talk with your doctor to see if Veklury is appropriate for you. Like PAXLOVID, FDA may also allow for the emergency use of other medicines to treat people with COVID-19. Go to https://www.fda.gov/emergency-pre paredness-andresponse/mcm-legal-r gcamhqqfc-sez-zptaht-framework/em atufycb-qxa-qvhpldtpquhzh for information on the emergency use of other medicines that are authorized by FDA to treat people with COVID-19. Your healthcare provider may talk with you about clinical trials for which you may be eligible. It is your choice to be treated or not to be treated with PAXLOVID. Should you decide not to receive it or for your child not to receive it, it will not change your standard medical care. What if I am or ? There is rad technologist treating women or mothers with PAXLOVID. For a mother and unborn baby, the benefit of taking PAXLOVID may be greater than the risk from the treatment. If you are , discuss your options and specific situation with your healthcare provider. It is recommended that you use effective barrier contraception or do not have sexual activity while taking PAXLOVID. If you are , discuss your options and specific situation with your healthcare provider. How do I report side effects with PAXLOVID? Contact your healthcare provider if you have any side effects that bother you or do not go away. Report side effects to FDA MedWatch at www.fda.gov/medwatch or call 1-185-KXE7204 or you can report side effects to [employer]. at the contact information provided below. Website Fax number Telephone number [employer] How should I store PAXLOVID? Store PAXLOVID tablets at room temperature, between 68?F to 77?F (20?C to 25?C). How can I learn more about COVID-19? Ask your healthcare provider. Visit https://www.cdc.gov/COVID19. Contact your local or state public health department. What is an Emergency Use Authorization (EUA)? The [place] FDA has made PAXLOVID available under an emergency access mechanism called an Emergency Use Authorization (EUA). The EUA is supported by a [place] of Health and Human Service (HHS) declaration that circumstances exist to justify the emergency use of drugs and biological products during the COVID-19 pandemic. PAXLOVID for the treatment of yvuf-bq-ffetrzmd COVID-19 in adults and children [12 years of age and older weighing at least 88 pounds (40 kg)] with positive results of direct SARS-CoV-2 viral testing, and who are at high risk for progression to severe COVID-19, including hospitalization or , has not undergone the same type of review as an FDA-approved product. In issuing an EUA under the COVID-19 public health emergency, the FDA has determined, among other things, that based on the total amount of scientific evidence available including data from adequate and well-controlled clinical trials, if available, it is reasonable to believe that the product may be effective for diagnosing, treating, or preventing COVID-19, or a serious or life-threatening disease or condition caused by COVID-19; that the known and potential benefits of the product, when used to diagnose, treat, or prevent such disease or condition, outweigh the known and potential risks of such product; and that there are no adequate, approved, and available alternatives. All of these criteria must be met to allow for the product to be used in the treatment of patients during the COVID-19 pandemic. The EUA for PAXLOVID is in effect for the duration of the COVID-19 declaration justifying emergency use of this product, unless terminated or revoked (after which the products may no longer be used under the EUA). Additional Information For general questions, visit the website or call the telephone number provided below. Website Telephone number www.[email or web address] (5-208-R28-URZU) You can also go to www.[employer] or call for more information. Pfizer Distributed by [employer] [place] [address] [id number] Revised: 04 October 2021 documented in this encounter [facility] 01-27-2022 Miscellaneous Notes Noted. Gloria Thompson APRN.CNP Called back and did review with her that need for a virtual visit to review antiviral issues. She will do this via my chart. Patient calls and states that she just tested positive for Covid. She was seen in urgent care yesterday. Her symptoms started getting worse yesterday but she started symptoms on . Patient is asking about antiviral treatment. Patient's pharmacy [facility]. Please review and advise, Irma Webb RN documented in this encounter [facility] 01-24-2022 Instructions Artur Montgomery APRN.ODILON - 01/24/2022 3:51 PM EDT How to Manage Common Symptoms Associated with COVID for Adults Fever- Fever is a temperature over 100.4 F and can occur when the body is fighting an infection. To help treat a fever: Drink plenty of fluids and stay well hydrated. Eat small amounts of easy to digest food. Rest. Your body needs rest to recover, but getting up and moving around the house frequently is a good idea. You should try to continue doing your normal daily activities (bathing, toileting, grooming, cooking), though you will probably feel tired, and need to rest often. Avoid any heavy activity or exercise, as this will increase your body temperature. Dress in light clothing and stay covered in a light sheet. Keep the room temperature cool. Take a slightly warm (not cold or cool) bath, or apply damp washcloths to the forehead and wrists. Cough- Cough is a common symptom associated with COVID and can be bothersome. To help treat a cough: Stay well hydrated. Try warm water or tea with lemon and/or honey to help soothe the cough. Use a humidifier to add moisture to the air. Try a product with menthol, like a cough drop or a rub for your chest such as Vicks, which can help reduce cough. Try cough drops. Avoid smoking and other strong odors or perfumes. Try breathing exercises to keep your lungs open and clear. Take a big deep breath through your nose and hold for 5 seconds before slowly releasing. Repeat frequently, while you are awake. Congestion- Runny nose or nasal congestion can occur with COVID. Treatment can help relieve symptoms: Try OTC nasal saline spray, or nasal saline rinse to relieve mucus congestion. Nasal strips can help keep nasal passages open, to increase airflow. Elevating your head with an extra pillow in bed can help reduce congestion. Using a humidifier can increase moisture in the air, and make breathing easier. Sore Throat- Another common symptom with COVID, can be managed at home by: Stay well hydrated. Gargle with salt water mix teaspoon salt with 1 cup of warm water and gargle. This helps to loosen mucus in the back of the throat and may reduce discomfort. Try ice chips, popsicles or lozenges to soothe the throat. Nausea/Vomiting/Diarrhea- These are common symptoms, and staying hydrated is most important. If you are nauseous or vomiting, start with small sips of water every 10-15 minutes and increase as tolerated. You can try sucking an ice cube too. If tolerating, you can try pedialyte or Gatorade, or flat sprite or jyoti-miriam. Start slowly and increase as you are able to. Instead of meals, try smaller, more frequent snacks. Try eating bland foods like crackers, toast, rice, and applesauce. Avoid spicy, greasy or fried foods and dairy containing foods. Even if you aren't feeling hungry due to lack of smell or taste, it is important to try to take in some food when you are able. After drinking and eating, rest in an upright position for up to two hours as needed to help decrease nauseous feelings. Try closing your eyes, avoid moving and watching TV. Avoid strong odors that can make you feel more nauseated. When to seek emergency medical attention Look for emergency warning signs for COVID-19. If having any of these symptoms, seek emergency medical care immediately: Trouble breathing Persistent pain or pressure in the chest New confusion Inability to wake or stay awake Bluish lips or face *This list is not all possible symptoms. Please call your medical provider for any other symptoms that are severe or concerning to you. documented in this encounter [facility] 01-24-2022 History of Present illness Narrative Subjective HPI Nontoxic-appearing female presents urgent care chief plaint cough and chest congestion. Duration of symptoms 1 day. Associated symptoms cough chest congestion headache fatigue body aches chills low-grade temperature. Patient states was around her grandchildren who had similar signs and symptoms. Denies any pain. States most bothersome symptom is chest congestion and cough. Patient states that this feeling her COPD is exacerbated. She has been coughing up some sputum recently. Denies any high fevers chest pain hemoptysis nausea vomiting pleuritic pain rashes change in bowel or bladder habits. Past medical history prescription medication use allergies reviewed. .Patient presents with: Cough: chest congestion, [place] x1 day PAST MEDICAL HISTORY Diagnosis Date ALCOHOL ABUSE-UNSPEC 08/07/2005 Ankylosing spondylitis (HCC) BIPOLAR DISORDER NOS 08/07/2005 Cervical high risk human papillomavirus (HPV) DNA test positive COPD (chronic obstructive pulmonary disease) (HCC) DEPRESSIVE DISORDER NEC 08/07/2005 Diabetes (HCC) History of cigarette smoking 04/09/2015 IRRITABLE COLON 08/07/2005 Mild dysplasia of cervix 2008 MITRAL VALVE DISORDER 08/07/2005 MYALGIA AND MYOSITIS NOS 08/07/2005 Papanicolaou smear of cervix with atypical squamous cells of undetermined significance (ASC-US) PAST SURGICAL HISTORY Procedure Laterality Date COLONOSCOPY FLX DX W/COLLJ SPEC WHEN PFRMD 01/06/2017 Colonoscopy /[facility] COLPOSCOPY CERVIX UPPER/ADJACENT VAGINA 2008 Colposcopy CONIZATION OF CERVIX; COLD KNIFE/LASER 2014 EXCISION BENIGN TUMOR/CYST 08/09/2019 EXPLORATORY LAPAROTOMY CELIOTOMY W/WO BIOPSY SPX 1998 Laparotomy, exp for endometriosis JOINT REPLACEMENT HX Right 2018 right knee KNEE ARTHROSCOPY/SURGERY Left 10/26 left knee replacement 08/27/09 OFFICE LEEP 2015 positive margins PAST SURGICAL HISTORY OF UMBILICAL HERNIA at 16 months age REGINALDO W/WO REMOVAL TUBE OVARY 2018 VAGINOSCOPY 2015 ALLERGIES Hydrocodone and Penicillins MEDICATIONS clonazePAM (KLONOPIN) 2 mg tablet Take 1 tablet by mouth twice daily as needed for up to 30 days. naproxen (NAPROSYN) 500 mg tablet Take 1 tablet by mouth twice daily as needed (for pain/inflammation). Take with food. Insulin Syringe-Needle U-100 0.5 mL 30 gauge x 1/2 1 Each once daily. and as needed. Use one syringe/needle for each dose gabapentin (NEURONTIN) 300 mg capsule Take 1 capsule by mouth three times daily. propranolol (INDERAL) 40 mg tablet Take 1 tablet by mouth three times daily. atorvastatin (LIPITOR) 10 mg tablet Take 1 tablet by mouth once daily. insulin NPH-insulin regular injection (HumuLIN, NovoLIN 70/30) Inject 12 Units subcutaneously daily with breakfast. albuterol HFA (VENTOLIN HFA) 90 mcg/actuation inhaler Inhale 2 Puffs as instructed every 4 hours as needed. venlafaxine ER (EFFEXOR XR) 150 mg 24 hr capsule One capsule twice daily cyanocobalamin (VITAMIN B-12) 100 mcg tab Take 100 mcg by mouth once daily. zinc sulfate (ZINC-15 ORAL) Take by mouth. Ascorbic Acid (VITAMIN C) 1,000 mg tablet Take 1,000 mg by mouth once daily. Olkkxdhmywhhz-Jvrvvcag-Kchzpj (MULTIVITAMIN 50 PLUS) tab Take 1 tablet by mouth once daily. omeprazole (PRILOSEC) 20 mg capsule Take 1 capsule by mouth once daily. metFORMIN (GLUCOPHAGE) 500 mg tablet Take two metformin with breakfast, one with dinner diclofenac, EC, (VOLTAREN) 75 mg EC tablet Take 1 tablet by mouth twice daily. For pain/inflammation. Take with food. blood sugar diagnostic test strip One Touch test strips for patient's covered meter--Check 2 to 3 times daily (E11.9, Z79.4) Type 2 diabetes mellitus. Insulin: YES Cholecalciferol, Vitamin D3, 5,000 unit cap Take 1 capsule by mouth once daily. Lancets (ONETOUCH ULTRASOFT LANCETS) lancets Use one lancet daily . Use as instructed dx. E 11.9 Blood-Glucose Meter (ThoughtBoxTOUCH ULTRA2) monitoring kit 1 Each as needed (Test 2-3 times a day or as needed). One Touch Meter Kit Diagnosis: Diabetes Mellitus aspirin, enteric coated 81 mg ORAL EC tablet FAMILY HISTORY Adopted: Yes Problem Relation Age of Onset Arthritis Mother Rhematoid Asthma Mother Alcohol/Drug Mother Alcohol/Drug Brother Alcohol/Drug Sister other (patient adopted) Sister Social History Tobacco Use Smoking status: Former Smoker Packs/day: 0.20 Years: 15.00 Pack years: 3.00 Types: Cigarettes Quit date: 07/11/2018 Years since quittin.5 Smokeless tobacco: Never Used Tobacco comment: Pt states she smokes 2-4 EVAP cigarettes. 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 HENT: Positive for congestion. Negative for ear discharge, ear pain, sinus pain and sore throat. Eyes: Negative for blurred vision, pain, discharge and redness. Respiratory: Positive for cough, sputum production, shortness of breath and wheezing. Negative for hemoptysis and stridor. Cardiovascular: Negative for chest pain. Gastrointestinal: Negative for abdominal pain, diarrhea, nausea and vomiting. Musculoskeletal: Positive for myalgias. Skin: Negative for itching and rash. Neurological: Positive for headaches. Negative for dizziness. Objective Physical Exam Constitutional: General: She is not in acute distress. Appearance: She is not diaphoretic. HENT: Head: Normocephalic. Nose: Congestion present. Eyes: Conjunctiva/sclera: Conjunctivae normal. Pupils: Pupils are equal, round, and reactive to light. Cardiovascular: Rate and Rhythm: Normal rate and regular rhythm. Heart sounds: Normal heart sounds. Pulmonary: Effort: Pulmonary effort is normal. No tachypnea, accessory muscle usage or respiratory distress. Breath sounds: No stridor. Wheezing present. No rhonchi or rales. Abdominal: Palpations: Abdomen is soft. Tenderness: There is no abdominal tenderness. Musculoskeletal: Cervical back: Normal range of motion and neck supple. No rigidity or tenderness. Lymphadenopathy: Cervical: No cervical adenopathy. Skin: General: Skin is warm and dry. Neurological: Mental Status: She is alert and oriented to person, place, and time. ASSESSMENT/PLAN: 1. Viral illness - ICD9: 079.99, ICD10: B34.9 (primary diagnosis) - COVID WITH FLUA+B, ROUTINE 2. COPD with exacerbation (HCC) - ICD9: 491.21, ICD10: J44.1 Nontoxic-appearing vital signs within normal limits. No increased work of breathing noted. Diagnosed with acute COPD exacerbation due to increased cough sputum production. Will be placed on doxycycline and prednisone. Will test for COVID-19 and influenza. Alternative diagnosis discussed. Red flags discussed. Patient was educated on supportive therapies. Patient will follow up with primary care provider as needed. Patient was instructed to immediately proceed to emergency room for any new, worsening, or symptoms lasting longer than anticipated. The patient's clinical presentation is otherwise unremarkable at this time. Based on exam and clinical finding, the patient is stable for discharge. Plan of care was discussed with patient. Patient verbalizes understanding and agrees to plan of care. This note was generated using [employer] software. It may contain errors in wording, punctuation, or spelling. Artur Montgomery APRN.ODILON documented in this encounter [facility] 12-29-2021 Miscellaneous Notes Okayed Patient has been identified by name and date of : Yes Patient phones for refill(s): Pending Prescriptions Disp Refills NAPROXEN 500 MG TABLET 180 tablet 0 Sig: Take 1 tablet by mouth twice daily as needed (for pain/inflammation). Take with food. MARJORIE: No INSULIN SYRINGE U-100 WITH NEEDLE 0.5 ML 30 GAUGE X 1/2 100 Each 3 Si Each once daily. and as needed. Use one syringe/needle for each dose MARJORIE: No GABAPENTIN 300 MG CAPSULE 270 capsule 3 Sig: Take 1 capsule by mouth three times daily. MARJORIE: No Date of last office visit in primary care: 11/21/20 Future visit: 01/03/22 Last 2 Encounter Wt Readings: Date: Wt: 11/07/2021 81.6 kg (180 lb) 08/08/2021 84 kg (185 lb 3.2 oz) Previous labs/tests for medication: Blood Pressure: BUN (mg/dL) Date Value 11/20/2020 14 Sodium (mmol/L) Date Value 11/20/2020 135 Last 1 Encounter BP Readings: Date: BP: 11/07/2021 122/68 Liver Function: ALT (U/L) Date Value 11/20/2020 20 AST (U/L) Date Value 11/20/2020 18 Please advise. Thank you. Zaria Mao RN documented in this encounter [facility] 11-07-2021 History of Present illness Narrative Subjective HPI HPI Twyla Escalona is a 61 year old female who presents today for CC of blood in urine, urinary urgency/burning/frequency, chills, right back pain/flank pain. This started 1 week ago. Has tried nothing for relief. Symptoms are worsened by nothing. Risk factors hx of uti. .Patient presents with: Hematuria: x 1 week PAST MEDICAL HISTORY Diagnosis Date ALCOHOL ABUSE-UNSPEC 08/07/2005 Ankylosing spondylitis (HCC) BIPOLAR DISORDER NOS 08/07/2005 Cervical high risk human papillomavirus (HPV) DNA test positive COPD (chronic obstructive pulmonary disease) (HCC) DEPRESSIVE DISORDER NEC 08/07/2005 Diabetes (HCC) History of cigarette smoking 04/09/2015 IRRITABLE COLON 08/07/2005 Mild dysplasia of cervix 2009 MITRAL VALVE DISORDER 08/07/2005 MYALGIA AND MYOSITIS NOS 08/07/2005 Papanicolaou smear of cervix with atypical squamous cells of undetermined significance (ASC-US) PAST SURGICAL HISTORY Procedure Laterality Date COLONOSCOPY FLX DX W/COLLJ SPEC WHEN PFRMD 01/06/2017 Colonoscopy /[facility] COLPOSCOPY CERVIX UPPER/ADJACENT VAGINA 2009 Colposcopy CONIZATION OF CERVIX; COLD KNIFE/LASER 2014 EXCISION BENIGN TUMOR/CYST 08/09/2019 EXPLORATORY LAPAROTOMY CELIOTOMY W/WO BIOPSY SPX 1998 Laparotomy, exp for endometriosis JOINT REPLACEMENT HX Right 2019 right knee KNEE ARTHROSCOPY/SURGERY Left 10/26 left knee replacement 08/27/09 OFFICE LEEP 2015 positive margins PAST SURGICAL HISTORY OF UMBILICAL HERNIA at 16 months age REGINALDO W/WO REMOVAL TUBE OVARY 2018 VAGINOSCOPY 2015 ALLERGIES Hydrocodone and Penicillins MEDICATIONS naproxen (NAPROSYN) 500 mg tablet Take 1 tablet by mouth twice daily as needed (for pain/inflammation). Take with food. propranolol (INDERAL) 40 mg tablet Take 1 tablet by mouth three times daily. clonazePAM (KLONOPIN) 2 mg tablet Take 1 tablet by mouth twice daily as needed for up to 180 days. Each refill is 60 pills per month; with 5 refills this prescription is for 180 days. May fill today atorvastatin (LIPITOR) 10 mg tablet Take 1 tablet by mouth once daily. insulin NPH-insulin regular injection (HumuLIN, NovoLIN 70/30) Inject 12 Units subcutaneously daily with breakfast. Insulin Syringe-Needle U-100 0.5 mL 30 gauge x 1/2 1 Each once daily. and as needed. Use one syringe/needle for each dose albuterol HFA (VENTOLIN HFA) 90 mcg/actuation inhaler Inhale 2 Puffs as instructed every 4 hours as needed. venlafaxine ER (EFFEXOR XR) 150 mg 24 hr capsule One capsule twice daily cyanocobalamin (VITAMIN B-12) 100 mcg tab Take 100 mcg by mouth once daily. zinc sulfate (ZINC-15 ORAL) Take by mouth. Ascorbic Acid (VITAMIN C) 1,000 mg tablet Take 1,000 mg by mouth once daily. Obuycgivfcute-Qadsbsco-Tesphv (MULTIVITAMIN 50 PLUS) tab Take 1 tablet by mouth once daily. omeprazole (PRILOSEC) 20 mg capsule Take 1 capsule by mouth once daily. gabapentin (NEURONTIN) 300 mg capsule Take 1 capsule by mouth three times daily. metFORMIN (GLUCOPHAGE) 500 mg tablet Take two metformin with breakfast, one with dinner diclofenac, EC, (VOLTAREN) 75 mg EC tablet Take 1 tablet by mouth twice daily. For pain/inflammation. Take with food. blood sugar diagnostic test strip One Touch test strips for patient's covered meter--Check 2 to 3 times daily (E11.9, Z79.4) Type 2 diabetes mellitus. Insulin: YES Cholecalciferol, Vitamin D3, 5,000 unit cap Take 1 capsule by mouth once daily. Lancets (ThoughtBoxTOUCH ULTRASOFT LANCETS) lancets Use one lancet daily . Use as instructed dx. E 11.9 Blood-Glucose Meter (ONETOUCH ULTRA2) monitoring kit 1 Each as needed (Test 2-3 times a day or as needed). One Touch Meter Kit Diagnosis: Diabetes Mellitus aspirin, enteric coated 81 mg ORAL EC tablet FAMILY HISTORY Adopted: Yes Problem Relation Age of Onset Arthritis Mother Rhematoid Asthma Mother Alcohol/Drug Mother Alcohol/Drug Brother Alcohol/Drug Sister other (patient adopted) Sister Social History Tobacco Use Smoking status: Former Smoker Packs/day: 0.20 Years: 15.00 Pack years: 3.00 Types: Cigarettes Quit date: 07/11/2018 Years since quittin.3 Smokeless tobacco: Never Used Tobacco comment: Pt states she smokes 2-4 EVAP cigarettes. 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 Respiratory: Negative for cough, shortness of breath and wheezing. Cardiovascular: Negative for chest pain and palpitations. Gastrointestinal: Negative for abdominal pain, blood in stool, constipation, diarrhea, heartburn, melena, nausea and vomiting. Genitourinary: Positive for dysuria, flank pain, frequency, hematuria and urgency. Objective Blood pressure 122/68, pulse 68, temperature 37.1 C (98.7 F), resp. rate 16, weight 81.6 kg (180 lb), last menstrual period 02/14/2007, SpO2 96 %. Component Latest Ref Rng & Units 11/20/2020 Protein, Total 6.3 - 8.0 g/dL 7.2 Albumin 3.9 - 4.9 g/dL 4.3 Calcium 8.5 - 10.2 mg/dL 9.4 Bilirubin, Total 0.2 - 1.3 mg/dL 0.4 Alkaline Phosphatase 34 - 123 U/L 134 (H) AST 13 - 35 U/L 18 Glucose 74 - 99 mg/dL 158 (H) BUN 7 - 21 mg/dL 14 Creatinine 0.58 - 0.96 mg/dL 0.62 Sodium 136 - 144 mmol/L 135 (L) Potassium 3.7 - 5.1 mmol/L 3.9 Chloride 97 - 105 mmol/L 100 CO2 22 - 30 mmol/L 23 Anion Gap 9 - 18 mmol/L 12 ALT 7 - 38 U/L 20 eGFR- >60 eGFR-All Other Races . >60 Physical Exam Constitutional: General: She is not in acute distress. Appearance: Normal appearance. She is not toxic-appearing. Cardiovascular: Rate and Rhythm: Normal rate and regular rhythm. Heart sounds: Normal heart sounds. Pulmonary: Effort: Pulmonary effort is normal. Breath sounds: Normal breath sounds. Abdominal: General: Bowel sounds are normal. Palpations: Abdomen is soft. There is no hepatomegaly or splenomegaly. Tenderness: There is no abdominal tenderness. There is right CVA tenderness. Skin: General: Skin is warm and dry. ASSESSMENT/PLAN: 1. Burning with urination - ICD9: 788.1, ICD10: R30.0 (primary diagnosis) acute - UA positive for meir esterase and hematuria - Send urine for culture - Begin treatment with Bactrim DS BID for 7 days - Patient education for prevention given 2. Gross hematuria - ICD9: 599.71, ICD10: R31.0 Will treat with bactrim worsening s/s go to ER - UA DIP, URINE (POC) - URINE CULTURE - SULFAMETHOXAZOLE 800 MG-TRIMETHOPRIM 160 MG TABLET 3. Flank pain - ICD9: 789.09, ICD10: R10.9 Discussed limitations of express care. Unclear if worsening uti or renal stone. Wants to try atb, if worsening s/s will go to ER Agrees to plan Berny Soto APRN.CNP documented in this encounter [facility] documented as of this encounter (statuses as of 11/07/2021) [facility]09-21-2015 History of Past illness Narrative* Problem Noted Date Resolved Date History of cigarette smoking 04/09/201506/2019 Follow-up examination, following other surgery 0 11/03/2008 11/27/2014 documented as of this encounter (statuses as of 12/29/2021) [facility]-2015 History of Past illness Narrative* Problem Noted Date Resolved Date History of cigarette smoking 04/09/201506/2019 Follow-up examination, following other surgery 0 11/03/2008 11/27/2014 documented as of this encounter (statuses as of 01/24/2022) [address]21-2015 History of Past illness Narrative* Problem Noted Date Resolved Date History of cigarette smoking 04/09/201506/2019 Follow-up examination, following other surgery 0 11/03/2008 11/27/2014 documented as of this encounter (statuses as of 01/27/2022) [address]21-2015 History of Past illness Narrative* Problem Noted Date Resolved Date History of cigarette smoking 04/09/201506/2019 Follow-up examination, following other surgery 0 11/03/2008 11/27/2014 documented as of this encounter (statuses as of 01/28/2022) [address]21-2015 History of Past illness Narrative* Problem Noted Date Resolved Date History of cigarette smoking 04/09/201506/2019 Follow-up examination, following other surgery 0 11/03/2008 11/27/2014 documented as of this encounter (statuses as of 01/28/2022) [address]21-2015 History of Past illness Narrative* Problem Noted Date Resolved Date History of cigarette smoking 04/09/201506/2019 Follow-up examination, following other surgery 0 11/03/2008 11/27/2014 documented as of this encounter (statuses as of 02/03/2022) [address]21-2015 History of Past illness Narrative* Problem Noted Date Resolved Date History of cigarette smoking 04/09/201506/2019 Follow-up examination, following other surgery 0 11/03/2008 11/27/2014 documented as of this encounter (statuses as of 02/05/2022) [address]21-2015 History of Past illness Narrative* Problem Noted Date Resolved Date History of cigarette smoking 04/09/201506/2019 Follow-up examination, following other surgery 0 11/03/2008 11/27/2014 documented as of this encounter (statuses as of 02/05/2022) [address]21-2015 History of Past illness Narrative* Problem Noted Date Resolved Date History of cigarette smoking 04/09/201506/2019 Follow-up examination, following other surgery 0 11/03/2008 11/27/2014 documented as of this encounter (statuses as of 02/09/2022) [place] [address]-21-2015 History of Past illness Narrative* Problem Noted Date Resolved Date History of cigarette smoking 04/09/201506/2019 Follow-up examination, following other surgery 0 11/03/2008 11/27/2014 documented as of this encounter (statuses as of 02/10/2022) [address]21-2015 History of Past illness Narrative* Problem Noted Date Resolved Date History of cigarette smoking 04/09/201506/2019 Follow-up examination, following other surgery 0 11/03/2008 11/27/2014 documented as of this encounter (statuses as of 02/11/2022) [address]21-2015 History of Past illness Narrative* Problem Noted Date Resolved Date History of cigarette smoking 04/09/201506/2019 Follow-up examination, following other surgery 0 11/03/2008 11/27/2014 documented as of this encounter (statuses as of 02/11/2022) [address]21-2015 History of Past illness Narrative* Problem Noted Date Resolved Date History of cigarette smoking 04/09/201506/2019 Follow-up examination, following other surgery 0 11/03/2008 11/27/2014 documented as of this encounter (statuses as of 02/26/2022) [address]21-2015 History of Past illness Narrative* Problem Noted Date Resolved Date History of cigarette smoking 04/09/201506/2019 Follow-up examination, following other surgery 0 11/03/2008 11/27/2014 documented as of this encounter (statuses as of 03/11/2022) [place] [address]21-2015 History of Past illness Narrative* Problem Noted Date Resolved Date History of cigarette smoking 04/09/201506/2019 Follow-up examination, following other surgery 0 11/03/2008 11/27/2014 documented as of this encounter (statuses as of 03/18/2022) [place] [address]21-2015 History of Past illness Narrative* Problem Noted Date Resolved Date History of cigarette smoking 04/09/201506/2019 Follow-up examination, following other surgery 0 11/03/2008 11/27/2014 documented as of this encounter (statuses as of 03/26/2022) [place] [address]21-2015 History of Past illness Narrative* Problem Noted Date Resolved Date History of cigarette smoking 04/09/201506/2019 Follow-up examination, following other surgery 0 11/03/2008 11/27/2014 documented as of this encounter (statuses as of 04/14/2022) [address]21-2015 History of Past illness Narrative* Problem Noted Date Resolved Date History of cigarette smoking 04/09/201506/2019 Follow-up examination, following other surgery 0 11/03/2008 11/27/2014 documented as of this encounter (statuses as of 05/19/2022) [address]21-2015 History of Past illness Narrative* Problem Noted Date Resolved Date History of cigarette smoking 04/09/201506/2019 Follow-up examination, following other surgery 0 11/03/2008 11/27/2014 documented as of this encounter (statuses as of 06/02/2022) [address]21-2015 History of Past illness Narrative* Problem Noted Date Resolved Date History of cigarette smoking 04/09/201506/2019 Follow-up examination, following other surgery 0 11/03/2008 11/27/2014 documented as of this encounter (statuses as of 06/03/2022) [address]21-2015 History of Past illness Narrative* Problem Noted Date Resolved Date History of cigarette smoking 04/09/201506/2019 Follow-up examination, following other surgery 0 11/03/2008 11/27/2014 documented as of this encounter (statuses as of 07/11/2022) [address]21-2015 History of Past illness Narrative* Problem Noted Date Resolved Date History of cigarette smoking 04/09/201506/2019 Follow-up examination, following other surgery 0 11/03/2008 11/27/2014 documented as of this encounter (statuses as of 07/14/2022) [address]21-2015 History of Past illness Narrative* Problem Noted Date Resolved Date History of cigarette smoking 04/09/201506/2019 Follow-up examination, following other surgery 0 11/03/2008 11/27/2014 documented as of this encounter (statuses as of 08/20/2022) [address]21-2015 History of Past illness Narrative* Problem Noted Date Resolved Date History of cigarette smoking 04/09/201506/2019 Follow-up examination, following other surgery 0 11/03/2008 11/27/2014 documented as of this encounter (statuses as of 09/09/2022) [address]21-2015 History of Past illness Narrative* Problem Noted Date Resolved Date History of cigarette smoking 04/09/201506/2019 Follow-up examination, following other surgery 0 11/03/2008 11/27/2014 documented as of this encounter (statuses as of 09/17/2022) [address]21-2015 History of Past illness Narrative* Problem Noted Date Resolved Date History of cigarette smoking 04/09/201506/2019 Follow-up examination, following other surgery 0 11/03/2008 11/27/2014 documented as of this encounter (statuses as of 09/22/2022) [address]21-2015 History of Past illness Narrative* Problem Noted Date Resolved Date History of cigarette smoking 04/09/201506/2019 Follow-up examination, following other surgery 0 11/03/2008 11/27/2014 documented as of this encounter (statuses as of 09/25/2022) [address]21-2015 History of Past illness Narrative* Problem Noted Date Resolved Date History of cigarette smoking 04/09/201506/2019 Follow-up examination, following other surgery 0 11/03/2008 11/27/2014 documented as of this encounter (statuses as of 09/30/2022) [address]21-2015 History of Past illness Narrative* Problem Noted Date Resolved Date History of cigarette smoking 04/09/201506/2019 Follow-up examination, following other surgery 0 11/03/2008 11/27/2014 documented as of this encounter (statuses as of 10/08/2022) [address]21-2015 History of Past illness Narrative* Problem Noted Date Resolved Date History of cigarette smoking 04/09/201506/2019 Follow-up examination, following other surgery 0 11/03/2008 11/27/2014 documented as of this encounter (statuses as of 10/21/2022) [address]21-2015 History of Past illness Narrative* Problem Noted Date Resolved Date History of cigarette smoking 04/09/201506/2019 Follow-up examination, following other surgery 0 11/03/2008 11/27/2014 documented as of this encounter (statuses as of 01/08/2023) [address]21-2015 History of Past illness Narrative* Problem Noted Date Resolved Date History of cigarette smoking 04/09/201506/2019 Follow-up examination, following other surgery 0 11/03/2008 11/27/2014 documented as of this encounter (statuses as of 01/16/2023) [address]21-2015 History of Past illness Narrative* Problem Noted Date Diagnosed Date Resolved Date History of cigarette smoking 04/09/2015 04/30/2019 Follow-up examination, sahrao wing other surgery 11/03/2008 11/27/2014 documented as of this encounter (statuses as of 03/17/2023) [address]21-2015 History of Past illness Narrative* Problem Noted Date Diagnosed Date Resolved Date History of cigarette smoking 04/09/2015 04/30/2019 Follow-up examination, sahrao wing other surgery 11/03/2008 11/27/2014 documented as of this encounter (statuses as of 03/20/2023) [address]21-2015 History of Past illness Narrative* Problem Noted Date Diagnosed Date Resolved Date History of cigarette smoking 04/09/2015 04/30/2019 Follow-up examination, sahrao wing other surgery 11/03/2008 11/27/2014 documented as of this encounter (statuses as of 04/02/2023) [address]21-2015 History of Past illness Narrative* Problem Noted Date Diagnosed Date Resolved Date History of cigarette smoking 04/09/2015 04/30/2019 Follow-up examination, sahrao wing other surgery 11/03/2008 11/27/2014 documented as of this encounter (statuses as of 04/07/2023) [address]21-2015 History of Past illness Narrative* Problem Noted Date Diagnosed Date Resolved Date History of cigarette smoking 04/09/2015 04/30/2019 Follow-up examination, follo wing other surgery 11/03/2008 11/27/2014 documented as of this encounter (statuses as of 04/25/2023) [address]21-2015 History of Past illness Narrative* Problem Noted Date Diagnosed Date Resolved Date History of cigarette smoking 04/09/2015 04/30/2019 Follow-up examination, follo wing other surgery 11/03/2008 11/27/2014 documented as of this encounter (statuses as of 05/05/2023) [address]21-2015 History of Past illness Narrative* Problem Noted Date Diagnosed Date Resolved Date History of cigarette smoking 04/09/2015 04/30/2019 Follow-up examination, follo wing other surgery 11/03/2008 11/27/2014 documented as of this encounter (statuses as of 05/07/2023) [facility]2015 History of Past illness Narrative* Problem Noted Date Diagnosed Date Resolved Date History of cigarette smoking 04/09/2015 04/30/2019 Follow-up examination, follo wing other surgery 11/03/2008 11/27/2014 Malaise and fatigue 08/07/2005 05/18/20 23 documented as of this encounter (statuses as of 05/19/2023) [facility] History of Past illness Narrative* Problem Noted Date Diagnosed Date Resolved Date History of cigarette smoking 04/09/2015 04/30/2019 Follow-up examination, follo wing other surgery 11/03/2008 11/27/2014 Malaise and fatigue 08/07/2005 05/18/20 23 documented as of this encounter (statuses as of 05/19/2023) [facility] History of Past illness Narrative* Problem Noted Date Diagnosed Date Resolved Date History of cigarette smoking 04/09/2015 04/30/2019 Follow-up examination, follo wing other surgery 11/03/2008 11/27/2014 Malaise and fatigue 08/07/2005 05/18/20 23 documented as of this encounter (statuses as of 06/08/2023) [place] [address]21-2015 History of Past illness Narrative* Problem Noted Date Diagnosed Date Resolved Date History of cigarette smoking 04/09/2015 04/30/2019 Follow-up examination, follo wing other surgery 11/03/2008 11/27/2014 Malaise and fatigue 08/07/2005 05/18/20 23 documented as of this encounter (statuses as of 06/30/2023) [facility] History of Past illness Narrative* Problem Noted Date Diagnosed Date Resolved Date History of cigarette smoking 04/09/2015 04/30/2019 Follow-up examination, follo wing other surgery 11/03/2008 11/27/2014 Malaise and fatigue 08/07/2005 05/18/20 23 documented as of this encounter (statuses as of 08/22/2023) [place] [address]21-2015 History of Past illness Narrative* Problem Noted Date Diagnosed Date Resolved Date History of cigarette smoking 04/09/2015 04/30/2019 Follow-up examination, sahrao wing other surgery 11/03/2008 11/27/2014 Malaise and fatigue 08/07/2005 05/18/20 23 documented as of this encounter (statuses as of 09/02/2023) [facility] History of Past illness Narrative* Problem Noted Date Diagnosed Date Resolved Date History of cigarette smoking 04/09/2015 04/30/2019 Follow-up examination, sahrao wing other surgery 11/03/2008 11/27/2014 Malaise and fatigue 08/07/2005 05/18/20 23 documented as of this encounter (statuses as of 09/11/2023) [address]21-2015 History of Past illness Narrative* Problem Noted Date Diagnosed Date Resolved Date History of cigarette smoking 04/09/2015 04/30/2019 Follow-up examination, sahrao wing other surgery 11/03/2008 11/27/2014 Malaise and fatigue 08/07/2005 05/18/20 23 documented as of this encounter (statuses as of 09/11/2023) [address]21-2015 History of Past illness Narrative* Problem Noted Date Diagnosed Date Resolved Date History of cigarette smoking 04/09/2015 04/30/2019 Follow-up examination, sahrao wing other surgery 11/03/2008 11/27/2014 Malaise and fatigue 08/07/2005 05/18/20 23 documented as of this encounter (statuses as of 09/14/2023) [facility] History of Past illness Narrative* Problem Noted Date Diagnosed Date Resolved Date History of cigarette smoking 04/09/2015 04/30/2019 Follow-up examination, follo wing other surgery 11/03/2008 11/27/2014 Malaise and fatigue 08/07/2005 05/18/20 23 documented as of this encounter (statuses as of 09/21/2023) [facility] Burning with urination- Primary Dysuria Gross hematuria Flank pain Abdominal pain, unspecified site [facility] Diagnosis Type 2 diabetes mellitus without complication, with long-term current use of insulin (HCC) [facility] [place] [facility] Diagnosis Viral illness- Primary Unspecified viral infection, in conditions classified elsewhere and of unspecified site COPD with exacerbation (HCC) Obstructive chronic bronchitis with exacerbation [facility] [place] [facility] Diagnosis COPD with exacerbation (HCC) Obstructive chronic bronchitis with exacerbation [facility] [place] [facility] Diagnosis Controlled type 2 diabetes mellitus without complication, without long-term current use of insulin (HCC)- Primary [facility] [place] [facility]* Diagnosis Bipolar affective disorder, remission status unspecified (HCC) [facility] [place] [facility] Diagnosis Bipolar affective disorder, remission status unspecified (HCC) Type 2 diabetes mellitus without complication, with long-term current use of insulin (HCC) [facility] [place] [facility] Diagnosis Type 2 diabetes mellitus without complication, with long-term current use of insulin (HCC) [facility] [place] [facility] Diagnosis Type 2 diabetes mellitus without complication, with long-term current use of insulin (HCC)- Primary Chronic obstructive pulmonary disease, unspecified COPD type (HCC) Need for shingles vaccine Need for prophylactic vaccination and inoculation against other viral diseases Screening for cervical cancer Screening for malignant neoplasm of the cervix Encounter for immunization Need for other specified prophylactic vaccination against single bacterial disease Screening for diabetic retinopathy Screening for other eye conditions COPD with exacerbation (HCC) Obstructive chronic bronchitis with exacerbation Cataract of both eyes, unspecified cataract type History of glaucoma Personal history of other disorders of nervous system and sense organs Dyslipidemia associated with type 2 diabetes mellitus (HCC) Type II or unspecified type diabetes mellitus with other specified manifestations, not stated as uncontrolled Ankylosing spondylitis, unspecified site of spine (HCC) History of alcohol dependence (HCC) Other and unspecified alcohol dependence, in remission Bipolar disorder, in partial remission, most recent episode depressed (HCC) Bipolar I disorder, most recent episode (or current) depressed, in partial or unspecified remission COVID-19 [facility] [place] [facility] Diagnosis COPD with exacerbation (HCC) Obstructive chronic bronchitis with exacerbation [facility] [place] [facility] Diagnosis Cortical age-related cataract, bilateral- Primary Nuclear sclerosis of both eyes Glaucoma suspect of both eyes Preglaucoma, unspecified Type 2 diabetes mellitus without retinopathy (HCC) Type II or unspecified type diabetes mellitus without mention of complication, not stated as uncontrolled Myopia, bilateral Myopia Regular astigmatism of both eyes Regular astigmatism Presbyopia Punctate keratitis, bilateral [facility] Combined form of age-related cataract, both eyes- Primary Glaucoma suspect of both eyes Preglaucoma, unspecified Ankylosing spondylitis, unspecified site of spine (HCC) Type 2 diabetes mellitus without retinopathy (HCC) Type II or unspecified type diabetes mellitus without mention of complication, not stated as uncontrolled Punctate keratitis, bilateral [facility] [place] [facility]* Diagnosis Bipolar affective disorder, remission status unspecified ([facility]) [facility] [place] [facility]* Diagnosis Open wound- Primary Open wound(s) (multiple) of unspecified site(s), without mention of complication [facility] Diagnosis Bronchitis- Primary Bronchitis, not specified as acute or chronic Type 2 diabetes mellitus without complication, with long-term current use of insulin ([facility]) [facility] [place] [facility]* Diagnosis Encounter for screening mammogram for breast cancer [facility] [place] [facility]* Diagnosis Type 2 diabetes mellitus without complication, with long-term current use of insulin ([facility]) [facility] [place] [facility]* Diagnosis Bipolar affective disorder, remission status unspecified ([facility]) [facility] [place] [facility]* Diagnosis Type 2 diabetes mellitus without complication, with long-term current use of insulin (HCC)- Primary Chronic obstructive pulmonary disease, unspecified COPD type ([facility]) Encounter for immunization Need for other specified prophylactic vaccination against single bacterial disease Screening for cervical cancer Screening for malignant neoplasm of the cervix Acute mid back pain Acute bilateral low back pain without sciatica [facility] [place] [facility]* Diagnosis Acute mid back pain [facility] [place] [facility]* Diagnosis Type 2 diabetes mellitus without complication, with long-term current use of insulin ([facility])- Primary [facility] [place] [facility]* Diagnosis Encounter for gynecologic examination for high-risk patient covered by Medicare- Primary Routine gynecological examination Stress incontinence Female stress incontinence Cystocele, midline Encounter for screening mammogram for breast cancer Encounter for screening for malignant neoplasm of vagina Special screening for malignant neoplasms, vagina 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 History of abdominal hysterectomy Acquired absence of both cervix and uterus [facility] [place] [facility]* Diagnosis Bipolar affective disorder, remission status unspecified (HCC) documented [facility] [place] [facility]* Diagnosis Bipolar affective disorder, remission status unspecified (HCC) documented in this encounter [facility] note* Diagnosis Bipolar affective disorder, remission status unspecified (HCC) documented in this encounter [facility] note* Diagnosis Type 2 diabetes mellitus without complication, with long-term current use of insulin (HCC) documented in this encounter [facility] note* Diagnosis Type 2 diabetes mellitus without complication, with long-term current use of insulin (HCC) documented in this encounter [facility] note* Diagnosis Bipolar affective disorder, remission status unspecified (HCC) documented in this encounter [facility] note* Diagnosis Type 2 diabetes mellitus without complication, with long-term current use of insulin (HCC)- Primary Hidradenitis suppurativa Hidradenitis Bipolar disorder, in partial remission, most recent episode depressed (HCC) Bipolar I disorder, most recent episode (or current) depressed, in partial or unspecified remission Dyslipidemia associated with type 2 diabetes mellitus (HCC) Type II or unspecified type diabetes mellitus with other specified manifestations, not stated as uncontrolled Encounter for therapeutic drug monitoring Encounter for immunization Need for other specified prophylactic vaccination against single bacterial disease Need for influenza vaccination Need for prophylactic vaccination and inoculation against influenza [facility]* Diagnosis Bipolar affective disorder, remission status unspecified (HCC) documented in this encounter [facility] note* Diagnosis COPD with exacerbation (HCC)- Primary Obstructive chronic bronchitis with exacerbation documented in this encounter [facility] note* Diagnosis Type 2 diabetes mellitus without complication, with long-term current use of insulin (HCC) [facility]* Diagnosis Encounter for screening mammogram for breast cancer documented in this encounter [facility] for referral (narrative)* Diagnostic Procedure Only (Routine) - Pending Review Specialty Diagnoses / Procedures Referred By Contac t Referred To Contact [facility] Diagnoses Encounter for screening mammogram for breast cancer Procedures FUENTES SCREENING SCREENING MAMMOGRAPHY BI 2-VIEW BREAST INC CAD Gianfranco Singh MD [address] [place] [address] [facility] [address] [place] [address] Referral ID Status Reason Start Date Expiration Date Visits Requested Visits Authorized [id number] Pending Review Auto-Generat ed Referral 05/28/2022 06/27/2023 1 1 [facility] for referral (narrative)* Diagnostic Procedure Only (Routine) - Closed Specialty Diagnoses / Procedures Referred By Contac t Referred To Contact XR IMAGING Diagnoses Acute bilateral low back pain without sciatica Procedures XR LUMBAR GENERAL 3V AP/LAT/L5-S1 RADEX SPINE LUMBOSACRAL 2/3 VIEWS Laith Galarza APRN.MARKET INVESTIGATOR [address] [place] [address] Xr Imaging Referral ID Status Reason Start Date Expiration Date V isits Requested Visits Authorized [id number] Closed Auto-Generate d Referral 09/22/2022 07/19/2023 1 1 * Diagnostic Procedure Only (Routine) - Closed Specialty Diagnoses / Procedures Referred By Contac t Referred To Contact XR IMAGING Diagnoses Acute mid back pain Procedures XR THORACIC GENERAL 3V AP/LAT/SWIMMERS RADEX SPINE THORACIC 3 VIEWS Laith Galarza APRN.MARKET INVESTIGATOR [address] [place] [address] Xr Imaging Referral ID Status Reason Start Date Expiration Date V isits Requested Visits Authorized [id number] Closed Auto-Generate d Referral 09/22/2022 07/19/2023 1 1 * Physical Therapy (Routine) - Pending Review Specialty Diagnoses / Procedures Referred By Contac t Referred To Contact [facility] Diagnoses Acute mid back pain Procedures CONSULT TO PHYSICAL THERAPY PHYSICAL THERAPY EVALUATION HIGH COMPLEX 45 MINS Laith Galarza APRN.MARKET INVESTIGATOR [address] [place] [address] [facility] [place] [address] [place] [address] Referral ID Status Reason Start Date Expiration Date Visits Requested Visits Authorized [id number] Pending Review Auto-Generat ed Referral 09/22/2022 09/22/2023 1 1 * Consult, Test, Treat (Routine) - Pending Review Specialty Diagnoses / Procedures Referred By Contac t Referred To Contact Diagnoses Screening for cervical cancer Procedures CONSULT TO PATIENT NAVIGATOR OFFICE/OUTPATIENT [facility] 60-74 MINUTES Laith Galarza APRN.CNS [address] [place] [address] Referral ID Status Reason Start Date Expiration Date Visits Requested Visits Authorized [id number] Pending Review PCP Requested Referral Auto-Generate d Referral 09/22/2022 09/22/2023 1 1 [facility] for referral (narrative)* Diagnostic Procedure Only (Routine) - Authorized Specialty Diagnoses / Procedures Referred By Contac t Referred To Contact BR IMAGING Diagnoses Encounter for gynecologic examination for high-risk patient covered by Medicare Encounter for screening mammogram for breast cancer Procedures FUENTES SCREENING SCREENING MAMMOGRAPHY BI 2-VIEW BREAST INC CAD Zainab Ramirez APRN.CNP [address] [place] [address] [facility] [address] [place] [address] Referral ID Status Reason Start Date Expiration Date Visits Requested Visits Authorized [id number] Authorized Auto-Generat ed Referral 10/07/2022 07/19/2023 1 1 [facility] for referral (narrative)* Diagnostic Procedure Only (Routine) - Pending Review Specialty Diagnoses / Procedures Referred By Contac t Referred To Contact BR IMAGING Diagnoses Encounter for screening mammogram for breast cancer Procedures FUENTES SCREENING SCREENING MAMMOGRAPHY BI 2-VIEW BREAST INC CAD Gianfranco Singh MD [address] [place] [address] Imaging [address] [place] [address] Referral ID Status Reason Start Date Expiration Date Visits Requested Visits Authorized [id number] Pending Review Auto-Generat ed Referral 09/09/2023 10/08/2024 1 1 [facility] Summary Purpose Family History No Family History Records FoundNo Family History Records FoundNo Family History Records FoundNo Family History Records FoundNo Family History Records FoundNo Family History Records FoundNo Family History Records FoundNo Family History Records Found Advance Directives No Advanced Directives Records FoundDocuments on File Type Date Recorded 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 Advance Directive(s) Advance Directive(s) 08/09/2019 7:49 AM Advance Directive(s) 11/10/2018 12:34 PM Advance Directive(s) 01/22/2017 12:48 PM Advance Directive(s) 11/19/2015 6:32 AM Advance Directive(s) 11/16/2015 9:58 AM Documents on File Type Date Recorded 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 Advance Directive(s) Advance Directive(s) 08/09/2019 7:49 AM Advance Directive(s) 11/10/2018 12:34 PM Advance Directive(s) 01/22/2017 12:48 PM Advance Directive(s) 11/19/2015 6:32 AM Advance Directive(s) 11/16/2015 9:58 AM Documents on File Type Date Recorded 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 The patient describes a several year history of severe constant right knee pain with associated instability. She now seeks surgical correction and is being seen prior to anticipated surgery.Please see below regarding the status of this patient's active medical conditions and the impression and plan for her preoperative medical risk stratification.PAST MEDICAL HISTORY:SURGERIES:1. Left knee replacement in 2007.2. Exploratory surgery in 2017.3. Hysterectomy in 2018.MEDICAL ILLNESSES:1. History of mitral valve prolapse diagnosed in her ea (more content not included)... Note CONSULTATIONDICTATED BY: MIL DILLARD MDDATE OF SERVICE: 06/25/2018NAME: TWYLA ESCALONA.DATE OF : 1960URGERY DATE: 06/28/2018 REFERRING PHYSICIAN: Tyler Watts DO ADMISSION DIAGNOSIS: Right knee stiffness. CHIEF COMPLAINT: Preoperative medical risk stratification. HISTORY OF PRESENT ILLNESS:This is a 57-year-old female who presents for preoperative medical risk stratification consult at the request of Dr. Watts prior to right knee manipulation. The patient successfully had a right knee replacement done for progressive and disabling osteoarthritis of the right knee. The right knee was replaced by Dr. Watts at [facility] on 05/05/2018. The patient reports she was discharged the same day as her surgery. She reports a progressive decline in range of motion. She was evaluated by the Surgical service on 06/24/2018 and has been scheduled for manipulation on 06/28/2018.PAST MEDICAL HISTORY:Surgeries:1. Left knee replacement in 2007.2. Exploratory surger (more content not included)... Note Patient: TWYLA ESCALONA MRN: [id number] [facility]: [id number] Age: 57 years Sex: Female : 1960 Associated Diagnoses: None Author: Erik Forde DO Subjective Subjective: Patient participated in the evaluation: Yes. Nausea: not present. Vomiting: not present. Pain: acceptable pain control. Objective Objective: Vital Signs: Last Charted Vital Signs Temperature: 98.9 (05/05 13:44) Pulse: 79 (05/05 13:44) Respiration: 14 (05/05 13:44) BP: 118/74 (05/05 13:44) Pulse Ox: 97 (05/05 13:48) Oxygen Delivery: Room air (05/05 13:48) Pain Score: 3 (05/05 13:05). Mental Status: alert and oriented. Postoperative hydration: adequate. Assessment Assessment: Post anesthetic condition: no anesthetic complications, the patient is doing well, pain is adequately controlled. Airway patent: yes. Plan Plan: Postanesthesia Plan: post anesthetic surveillance concluded. Note Patient: TWYLA ESCALONA MRN: [facility])-[id number] Age: 58 years Sex: Female : 1960 Associated Diagnoses: None Author: Kamila Rosado DO Supervising Physician Comments Documentation By: Attending Physician. Subjective Subjective: Patient participated in the evaluation: Yes. Nausea: not present. Vomiting: not present. Pain: acceptable pain control. Objective Objective: Vital Signs: Last Charted Vital Signs Temperature: 97.9 (06/28 08:00) Pulse: 57 (06/28 09:00) Respiration: 13 (06/28 09:00) BP: 106/70 (06/28 09:00) Pulse Ox: 98 (06/28 09:00) Oxygen Delivery: Room air (06/28 08:20) Pain Score: 5 (06/28 08:20). Mental Status: alert and oriented. Postoperative hydration: adequate. Assessment Assessment: Post anesthetic condition: no anesthetic complications, the patient is doing well, pain is adequately controlled. Airway patent: yes. Plan Plan: Postanesthesia Plan: post anesthetic surveillance concluded. Note CLINICAL SUMMARYPlease take this summary document to your follow up appointments. [facility] 05/05/18 [id number] [place], [place]. [address]Jsrbb: PATIENT INFORMATION Name: TWYLA ESCALONA Address: [facility] [address] [facility] [address] Age: 57 Years Phone: [phone] : 1960 12:00 MRN: [id number] Sex: Female Race: Declined Ethnicity: Not Hispan/Lat Admitted From: Clinic or [facility] Medical Service: Orthopedic Surgery Nurse Unit/Bed: ([place] 0226-01 Admit Date: 05/05/2018 05:38 PCP: Physician, PCP UnknownPHYSICIANS INVOLVED WITH CARE Attending Physicians: Tyler Watts DO - Orthopaedic Surg Admitting Physician: None found Primary Care Physician:Physician, PCP Unknown,Family Practice,,, - Consults: EDA Rincon - Internal Medicine Problems Active Osteoarthritis MVP (m (more content not included)... Procedure Findings Note Patient: TWYLA ESCALONA MRN: [facility])-[id number] Age: 57 years Sex: Female : 1960 Associated Diagnoses: None Author: Erik Forde DO Subjective Subjective: Patient participated in the evaluation: Yes. Nausea: not present. Vomiting: not present. Pain: acceptable pain control. Objective Objective: Vital Signs: Last Charted Vital Signs Temperature: 98.9 (05/05 13:44) Pulse: 79 (05/05 13:44) Respiration: 14 (05/05 13:44) BP: 118/74 (05/05 13:44) Pulse Ox: 97 (05/05 13:48) Oxygen Delivery: Room air (05/05 13:48) Pain Score: 3 (05/05 13:05). Mental Status: alert and oriented. Postoperative hydration: adequate. Assessment Assessment: Post anesthetic condition: no anesthetic complications, the patient is doing well, pain is adequately controlled. Airway patent: yes. Plan Plan: Postanesthesia Plan: post anesthetic surveillance concluded. Note Patient: TWYLA ESCALONA MRN: [facility])-[id number] Age: 58 years Sex: Female : 1960 Associated Diagnoses: None Author: Kamila Rosado DO Supervising Physician Comments Documentation By: Attending Physician. Subjective Subjective: Patient participated in the evaluation: Yes. Nausea: not present. Vomiting: not present. Pain: acceptable pain control. Objective Objective: Vital Signs: Last Charted Vital Signs Temperature: 97.9 (06/28 08:00) Pulse: 57 (06/28 09:00) Respiration: 13 (06/28 09:00) BP: 106/70 (06/28 09:00) Pulse Ox: 98 (06/28 09:00) Oxygen Delivery: Room air (06/28 08:20) Pain Score: 5 (06/28 08:20). Mental Status: alert and oriented. Postoperative hydration: adequate. Assessment Assessment: Post anesthetic condition: no anesthetic complications, the patient is doing well, pain is adequately controlled. Airway patent: yes. Plan Plan: Postanesthesia Plan: post anesthetic surveillance concluded. Hospital Course Note CLINICAL SUMMARYPlease take this summary document to your follow up appointments. [facility] 05/05/18 [id number] [place], [place]. [address]: PATIENT INFORMATION Name: TWYLA ESCALONA Address: [address] [place] [address] [address] [facility] [address] Age: 57 Years Phone: [phone] : 1960 12:00 MRN: ([id number] Sex: Female Race: Declined Ethnicity: Not Hispan/Lat Admitted From: Clinic or [facility] Medical Service: Orthopedic Surgery Nurse Unit/Bed: (WA) 2N 0226-01 Admit Date: 05/05/2018 05:38 PCP: Physician, PCP UnknownPHYSICIANS INVOLVED WITH CARE Attending Physicians: Tyler Watts DO - Orthopaedic Surg Admitting Physician: None found Primary Care Physician:Physician, PCP Unknown,Family Practice,,, - Consults: EDA Rincon - Internal Medicine Problems Active Osteoarthritis MVP (m (more content not included)... Health Concerns Infection Onset Date Last Indicated Resolved Time COVID-19 Confirmed 01/24/2022 01/24/2022 Infection Onset Date Last Indicated Resolved Time COVID-19 Confirmed 01/24/2022 01/24/2022 Infection Onset Date Last Indicated Resolved Time COVID-19 Rule-Out 05/19/2022 05/19/2022 Reason for Referral Specialty Diagnoses / Procedures Referred By Tristan t Referred To Contact Ophthalmology Diagnoses Cataract of both eyes, unspecified cataract type History of glaucoma Procedures CONSULT TO OPHTHALMOLOGY OFFICE/OUTPATIENT [facility] 60-74 MINUTES Laith Galarza, HOT STONE SETTER.MARKET INVESTIGATOR [address] [place] [address] Referral ID Status Reason Start Date Expiration Date Visits Requested Visits Authorized [id number] Pending Review PCP Requested Referral 02/10/2022 02/10/2023 1 1 Specialty Diagnoses / Procedures Referred By Tristan t Referred To Contact [facility] Diagnoses COPD with exacerbation (HCC) Procedures SPIROMETRY - BASELINE AND POST DILATOR BRNCDILAT RSPSE SPMTRY PRE&POST-BRNCDILAT ADMN Laith Galarza, HOT STONE SETTER.MARKET INVESTIGATOR [address] [place] [address] [facility] [place] [address] [place] [address] Referral ID Status Reason Start Date Expiration Date Visits Requested Visits Authorized [id number] Authorized Auto-Generat ed Referral 02/10/2022 03/12/2023 1 1 Specialty Diagnoses / Procedures Referred By Tristan Referred To Contact [facility] Diagnoses Acute mid back pain Procedures PT REHAB FOLLOW UP ORDER THERAPEUTIC EXERCISES RE, EA 15 MIN. Pt [facility] [address] [place] [address] [facility] [address] [address] Referral ID Status Reason Start Date Expiration Date Visits Requested Visits Authorized [id number] Pending Review PCP Requested Referral Auto-Generate d Referral 09/24/2022 12/23/2022 1 1 Medications Administered Section Active Administered Medications - up to 3 most recent administrations Medication Order MAR Action Action Date Dose Rate Site fluorescein-benoxinate 0.25-0.4 % 1 Drop (FLURESS) 1 Drop, BOTH EYES, DIRECTED, Starting on Thu02/11/22 at 1430, Until Thu02/12/22 at 0229, Administer for applanation tonometry. In the event of a Fluress shortage, administer Brandon-Fluor 1 drop into both eyes as directed for applanation tonometry Given 02/11/2022 2:30 PM EDT 1 Drop PHENYLephrine 2.5 % 1 Drop (AK-DILATE, STERLING-SYNEPHRINE) 1 Drop, BOTH EYES, DIRECTED, Starting on Thu02/11/22 at 1430, Until Thu02/12/22 at 0229, Administer for dilation PROTECT FROM LIGHT Given 02/11/2022 2:30 PM EDT 1 Drop tropicamide 1 % 1 Drop (MYDRIACYL) 1 Drop, BOTH EYES, DIRECTED, Starting on Thu02/11/22 at 1430, Until Thu02/12/22 at 0229, Administer for dilation Given 02/11/2022 2:30 PM EDT 1 Drop Active Administered Medications - up to 3 most recent administrations Medication Order MAR Action Action Date Dose Rate Site fluorescein-benoxinate 0.25-0.4 % 1 Drop (FLURESS) 1 Drop, BOTH EYES, DIRECTED, Starting on Thu02/26/22 at 1530, Until Eliana 02/27/22 at 0329, Administer for applanation tonometry. In the event of a Fluress shortage, administer Gladis-Fluor 1 drop into both eyes as directed for applanation tonometry Given 02/26/2022 3:31 PM EDT 1 Drop PHENYLephrine 2.5 % 1 Drop (AK-DILATE, STERLING-SYNEPHRINE) 1 Drop, BOTH EYES, DIRECTED, Starting on Thu02/26/22 at 1530, Until Thu02/27/22 at 0329, Administer for dilation PROTECT FROM LIGHT Given 02/26/2022 3:31 PM EDT 1 Drop proparacaine 0.5 % 1 Drop (ALCAINE) 1 Drop, BOTH EYES, DIRECTED, Starting on Thu02/26/22 at 1530, Until Thu02/27/22 at 0329, Administer for pneumo tonometry, tonopen tonometry, or pachymetry. In the event of a proparacaine shortage, administer tetracaine 0.5% ophthalmic drops 1 drop in the left eye as directed for pneumo tonometry, tonopen tonometry, or pachymetry Given 02/26/2022 3:31 PM EDT 1 Drop tropicamide 1 % 1 Drop (MYDRIACYL) 1 Drop, BOTH EYES, DIRECTED, Starting on Thu02/26/22 at 1530, Until Thu02/27/22 at 0329, Administer for dilation Given 02/26/2022 3:31 PM EDT 1 Drop Additional Source Comments INFORMATION SOURCE (unrecogn ized section and content) DATE CREATED AUTHOR AUTHOR'S ORGANIZ ATION 01/13/2018 [facility] DATE CREATED AUTHOR AUTHOR'S ORGANIZ ATION 01/13/2018 [facility] DATE CREATED AUTHOR AUTHOR'S ORGANIZ ATION 01/30/2018 [facility] DATE CREATED AUTHOR AUTHOR'S ORGANIZ ATION 07/04/2018 [facility] DATE CREATED AUTHOR AUTHOR'S ORGANIZ ATION 01/26/2019 [facility] DATE CREATED AUTHOR AUTHOR'S ORGANIZ ATION 08/16/2019 [facility] DATE CREATED AUTHOR AUTHOR'S ORGANIZ ATION 09/25/2023 [facility] Source Comments (unrecognize d section and content) In the event this informatio n is protected by the Federal Confidentiality of Alcohol and Drug Abuse Patient Records regulations: The Federal rules restrict any use of the information to criminally investigate or prosecute any alcohol or drug abuse patient.[facility] the event this information is protected by the Federal Confidentiality of Alcohol and Drug Abuse Patient Records regulations: The Federal rules restrict any use of the information to criminally investigate or prosecute any alcohol or drug abuse patient.[facility] Hospital[facility] the event this information is protected by the Federal Confidentiality of Alcohol and Drug Abuse Patient Records regulations: The Federal rules restrict any use of the information to criminally investigate or prosecute any alcohol or drug abuse patient.[facility] Hospital[facility] the event this information is protected by the Federal Confidentiality of Alcohol and Drug Abuse Patient Records regulations: The Federal rules restrict any use of the information to criminally investigate or prosecute any alcohol or drug abuse patient.[facility] HospitalIn the event this information is protected by the Federal Confidentiality of Alcohol and Drug Abuse Patient Records regulations: The Federal rules restrict any use of the information to criminally investigate or prosecute any alcohol or drug abuse patient.[facility] HospitalIn the event this information is protected by the Federal Confidentiality of Alcohol and Drug Abuse Patient Records regulations: The Federal rules restrict any use of the information to criminally investigate or prosecute any alcohol or drug abuse patient.[facility] HospitalIn the event this information is protected by the Federal Confidentiality of Alcohol and Drug Abuse Patient Records regulations: The Federal rules restrict any use of the information to criminally investigate or prosecute any alcohol or drug abuse patient.[facility] HospitalIn the event this information is protected by the Federal Confidentiality of Alcohol and Drug Abuse Patient Records regulations: The Federal rules restrict any use of the information to criminally investigate or prosecute any alcohol or drug abuse patient.[facility] HospitalIn the event this information is protected by the Federal Confidentiality of Alcohol and Drug Abuse Patient Records regulations: The Federal rules restrict any use of the information to criminally investigate or prosecute any alcohol or drug abuse patient.[facility] HospitalIn the event this information is protected by the Federal Confidentiality of Alcohol and Drug Abuse Patient Records regulations: The Federal rules restrict any use of the information to criminally investigate or prosecute any alcohol or drug abuse patient.[facility] HospitalIn the event this information is protected by the Federal Confidentiality of Alcohol and Drug Abuse Patient Records regulations: The Federal rules restrict any use of the information to criminally investigate or prosecute any alcohol or drug abuse patient.[facility] HospitalIn the event this information is protected by the Federal Confidentiality of Alcohol and Drug Abuse Patient Records regulations: The Federal rules restrict any use of the information to criminally investigate or prosecute any alcohol or drug abuse patient.[facility] HospitalIn the event this information is protected by the Federal Confidentiality of Alcohol and Drug Abuse Patient Records regulations: The Federal rules restrict any use of the information to criminally investigate or prosecute any alcohol or drug abuse patient.[facility] HospitalIn the event this information is protected by the Federal Confidentiality of Alcohol and Drug Abuse Patient Records regulations: The Federal rules restrict any use of the information to criminally investigate or prosecute any alcohol or drug abuse patient.[facility] HospitalIn the event this information is protected by the Federal Confidentiality of Alcohol and Drug Abuse Patient Records regulations: The Federal rules restrict any use of the information to criminally investigate or prosecute any alcohol or drug abuse patient.[facility] HospitalIn the event this information is protected by the Federal Confidentiality of Alcohol and Drug Abuse Patient Records regulations: The Federal rules restrict any use of the information to criminally investigate or prosecute any alcohol or drug abuse patient.[facility] HospitalIn the event this information is protected by the Federal Confidentiality of Alcohol and Drug Abuse Patient Records regulations: The Federal rules restrict any use of the information to criminally investigate or prosecute any alcohol or drug abuse patient.[facility] HospitalIn the event this information is protected by the Federal Confidentiality of Alcohol and Drug Abuse Patient Records regulations: The Federal rules restrict any use of the information to criminally investigate or prosecute any alcohol or drug abuse patient.[facility] HospitalIn the event this information is protected by the Federal Confidentiality of Alcohol and Drug Abuse Patient Records regulations: The Federal rules restrict any use of the information to criminally investigate or prosecute any alcohol or drug abuse patient.[facility] HospitalIn the event this information is protected by the Federal Confidentiality of Alcohol and Drug Abuse Patient Records regulations: The Federal rules restrict any use of the information to criminally investigate or prosecute any alcohol or drug abuse patient.[facility] HospitalIn the event this information is protected by the Federal Confidentiality of Alcohol and Drug Abuse Patient Records regulations: The Federal rules restrict any use of the information to criminally investigate or prosecute any alcohol or drug abuse patient.[facility] HospitalIn the event this information is protected by the Federal Confidentiality of Alcohol and Drug Abuse Patient Records regulations: The Federal rules restrict any use of the information to criminally investigate or prosecute any alcohol or drug abuse patient.[facility] HospitalIn the event this information is protected by the Federal Confidentiality of Alcohol and Drug Abuse Patient Records regulations: The Federal rules restrict any use of the information to criminally investigate or prosecute any alcohol or drug abuse patient.[facility] HospitalIn the event this information is protected by the Federal Confidentiality of Alcohol and Drug Abuse Patient Records regulations: The Federal rules restrict any use of the information to criminally investigate or prosecute any alcohol or drug abuse patient.[facility] HospitalIn the event this information is protected by the Federal Confidentiality of Alcohol and Drug Abuse Patient Records regulations: The Federal rules restrict any use of the information to criminally investigate or prosecute any alcohol or drug abuse patient.[facility] HospitalIn the event this information is protected by the Federal Confidentiality of Alcohol and Drug Abuse Patient Records regulations: The Federal rules restrict any use of the information to criminally investigate or prosecute any alcohol or drug abuse patient.[facility] HospitalIn the event this information is protected by the Federal Confidentiality of Alcohol and Drug Abuse Patient Records regulations: The Federal rules restrict any use of the information to criminally investigate or prosecute any alcohol or drug abuse patient.[facility] HospitalIn the event this information is protected by the Federal Confidentiality of Alcohol and Drug Abuse Patient Records regulations: The Federal rules restrict any use of the information to criminally investigate or prosecute any alcohol or drug abuse patient.[facility] HospitalIn the event this information is protected by the Federal Confidentiality of Alcohol and Drug Abuse Patient Records regulations: The Federal rules restrict any use of the information to criminally investigate or prosecute any alcohol or drug abuse patient.[facility] HospitalIn the event this information is protected by the Federal Confidentiality of Alcohol and Drug Abuse Patient Records regulations: The Federal rules restrict any use of the information to criminally investigate or prosecute any alcohol or drug abuse patient.[facility] HospitalIn the event this information is protected by the Federal Confidentiality of Alcohol and Drug Abuse Patient Records regulations: The Federal rules restrict any use of the information to criminally investigate or prosecute any alcohol or drug abuse patient.[facility] HospitalIn the event this information is protected by the Federal Confidentiality of Alcohol and Drug Abuse Patient Records regulations: The Federal rules restrict any use of the information to criminally investigate or prosecute any alcohol or drug abuse patient.[facility] HospitalIn the event this information is protected by the Federal Confidentiality of Alcohol and Drug Abuse Patient Records regulations: The Federal rules restrict any use of the information to criminally investigate or prosecute any alcohol or drug abuse patient.[facility] HospitalIn the event this information is protected by the Federal Confidentiality of Alcohol and Drug Abuse Patient Records regulations: The Federal rules restrict any use of the information to criminally investigate or prosecute any alcohol or drug abuse patient.[facility] HospitalIn the event this information is protected by the Federal Confidentiality of Alcohol and Drug Abuse Patient Records regulations: The Federal rules restrict any use of the information to criminally investigate or prosecute any alcohol or drug abuse patient.[facility] HospitalIn the event this information is protected by the Federal Confidentiality of Alcohol and Drug Abuse Patient Records regulations: The Federal rules restrict any use of the information to criminally investigate or prosecute any alcohol or drug abuse patient.[facility] HospitalIn the event this information is protected by the Federal Confidentiality of Alcohol and Drug Abuse Patient Records regulations: The Federal rules restrict any use of the information to criminally investigate or prosecute any alcohol or drug abuse patient.[facility] HospitalIn the event this information is protected by the Federal Confidentiality of Alcohol and Drug Abuse Patient Records regulations: The Federal rules restrict any use of the information to criminally investigate or prosecute any alcohol or drug abuse patient.[facility] HospitalIn the event this information is protected by the Federal Confidentiality of Alcohol and Drug Abuse Patient Records regulations: The Federal rules restrict any use of the information to criminally investigate or prosecute any alcohol or drug abuse patient.[facility] HospitalIn the event this information is protected by the Federal Confidentiality of Alcohol and Drug Abuse Patient Records regulations: The Federal rules restrict any use of the information to criminally investigate or prosecute any alcohol or drug abuse patient.[facility] HospitalIn the event this information is protected by the Federal Confidentiality of Alcohol and Drug Abuse Patient Records regulations: The Federal rules restrict any use of the information to criminally investigate or prosecute any alcohol or drug abuse patient.[facility] HospitalIn the event this information is protected by the Federal Confidentiality of Alcohol and Drug Abuse Patient Records regulations: The Federal rules restrict any use of the information to criminally investigate or prosecute any alcohol or drug abuse patient.[facility] HospitalIn the event this information is protected by the Federal Confidentiality of Alcohol and Drug Abuse Patient Records regulations: The Federal rules restrict any use of the information to criminally investigate or prosecute any alcohol or drug abuse patient.[facility] HospitalIn the event this information is protected by the Federal Confidentiality of Alcohol and Drug Abuse Patient Records regulations: The Federal rules restrict any use of the information to criminally investigate or prosecute any alcohol or drug abuse patient.[facility] HospitalIn the event this information is protected by the Federal Confidentiality of Alcohol and Drug Abuse Patient Records regulations: The Federal rules restrict any use of the information to criminally investigate or prosecute any alcohol or drug abuse patient.[facility] HospitalIn the event this information is protected by the Federal Confidentiality of Alcohol and Drug Abuse Patient Records regulations: The Federal rules restrict any use of the information to criminally investigate or prosecute any alcohol or drug abuse patient.[facility] HospitalIn the event this information is protected by the Federal Confidentiality of Alcohol and Drug Abuse Patient Records regulations: The Federal rules restrict any use of the information to criminally investigate or prosecute any alcohol or drug abuse patient.[facility] HospitalIn the event this information is protected by the Federal Confidentiality of Alcohol and Drug Abuse Patient Records regulations: The Federal rules restrict any use of the information to criminally investigate or prosecute any alcohol or drug abuse patient.[facility] HospitalIn the event this information is protected by the Federal Confidentiality of Alcohol and Drug Abuse Patient Records regulations: The Federal rules restrict any use of the information to criminally investigate or prosecute any alcohol or drug abuse patient.[facility] HospitalIn the event this information is protected by the Federal Confidentiality of Alcohol and Drug Abuse Patient Records regulations: The Federal rules restrict any use of the information to criminally investigate or prosecute any alcohol or drug abuse patient.[facility] Reason for Visit (unrecogniz ed section and content) Reason Onset Date Comments Refill Request 12/27/2021 Reason Comments Cough chest congestion, [place] x1 day Reason Comments Patient Update Reason Comments Covid Follow Up Reason Comments COVID +/Appointment Reason Onset Date Comments Population Health Navigation Outreach 01/31/2022 Navigator [employer] care gap Reason Comments Refill Request Reason Onset Date Comments Refill Request 02/03/2022 Reason Onset Date Comments Refill Request 02/07/2022 Reason Comments Recheck 6 month follow up Reason Comments Spirometry Specialty Diagnoses / Procedures Referred By Contac t Referred To Contact [facility] Diagnoses COPD with exacerbation (HCC) Procedures SPIROMETRY - BASELINE AND POST DILATOR BRNCDILAT RSPSE SPMTRY PRE&POST-BRNCDILAT ADMN Laith Galarza, HOT STONE SETTER.MARKET INVESTIGATOR [address] [place] [address] [facility] [address] [place] [address] Referral ID Status Reason Start Date Expiration Date V isits Requested Visits Authorized [id number] Closed Auto-Generate d Referral 02/10/2022 03/12/2023 1 1 Reason Comments Decreased Vision Both Eyes Specialty Diagnoses / Procedures Referred By Contac t Referred To Contact Optometry / OPHTHALMOLOGY Diagnoses Unspecified cataract Personal history of other diseases of the nervous system and sense organs Cataract of both eyes, unspecified cataract type [H26.9] History of glaucoma [Z86.69] Procedures OPHTH MEDICAL XM&EVAL INTERMEDIATE NEW PT OPHTH MEDICAL XM&EVAL COMPRE NEW PT VST OFFICE/OUTPATIENT NEW HIGH MDM 60-74 MINUTES NEW ADULT Exam Caridad Diaz, OD [address] [place] [address] Caridad Diaz, OD [address] [place] [address] Referral ID Status Reason Start Date Expiration Date Visits Re quested Visits Authorized [id number] Closed 02/11/2022 07/19/2022 1 1 Reason Comments Cataract Evaluation Both eyes Reason Onset Date Comments Refill Request 03/10/2022 Reason Comments Pain Pt reported (RT) christine ed facial lesion pain rated 4, x4 days. Reason Comments Medication Problem Reason Onset Date Comments Refill Request 04/11/2022 Reason Comments Sore Throat Congestion x6 days Reason Onset Date Comments Population Health Navigation Outreach 06/03/2022 ANTHEM CARE GAP Reason Onset Date Comments Refill Request 07/07/2022 Reason Onset Date Comments Refill Request 07/11/2022 Reason Onset Date Comments Population Health Navigation Outreach 08/20/2022 Care Gaps Reason Onset Date Comments Refill Request 09/08/2022 Reason Onset Date Comments Refill Request 09/16/2022 Reason Comments PT Eval Specialty Diagnoses / Procedures Referred By Contac t Referred To Contact [facility] Diagnoses Acute mid back pain Procedures CONSULT TO PHYSICAL THERAPY PHYSICAL THERAPY EVALUATION HIGH COMPLEX 45 MINS THERAPEUTIC EXERCISES RE, EA 15 MIN. Laith Galarza, HOT STONE SETTER.MARKET INVESTIGATOR [address] [place] [address] [facility] [place] [address] [place] [address] Referral ID Status Reason Start Date Expiration Date Visits Requested Visits Authorized [id number] Authorized Auto-Generat ed Referral 07/20/2022 07/19/2023 99 99 Reason Comments Results Reason Comments Well Woman Specialty Diagnoses / Procedures Referred By Tristan t Referred To Contact Diagnoses Screening for cervical cancer Procedures CONSULT TO PATIENT NAVIGATOR OFFICE/OUTPATIENT [facility] MDM 60-74 MINUTES Laith Galarza, HOT STONE SETTER.MARKET INVESTIGATOR [address] [place] [address] Referral ID Status Reason Start Date Expiration Date Visits Requested Visits Authorized [id number] Pending Review PCP Requested Referral Auto-Generate d Referral 09/22/2022 09/22/2023 1 1 Reason Onset Date Comments Refill Request 10/17/2022 Reason Onset Date Comments Refill Request 01/01/2023 Reason Comments Medication Question Reason Onset Date Comments Opened In Error 03/19/2023 Reason Comments Forms Reason Onset Date Comments Medication Request 04/20/2023 Refill Request 04/23/2023 Reason Onset Date Comments Refill Request 05/04/2023 Reason Comments AEP form Reason Onset Date Comments Medication Follow-up Immunizations 05/18/2023 Flu vaccination Reason Onset Date Comments Refill Request 06/05/2023 Out of medicatio n Reason Comments Cough Sore throat, congest ion, coughing up mucus x 1 week Reason Onset Date Comments Refill Request 08/21/2023 please see Rx no meenakshi Reason Onset Date Comments Refill Request 09/01/2023 Reason Onset Date Comments Refill Request 09/10/2023 Reason Comments urinary symptoms Care Teams (unrecognized sec tion and content) Farm Helper Relationship Specialty Start Date End Date Gianfranco Singh MD [address] [place], [place] [id number] PCP - General Internal Medicine 11/13/16 Farm Helper Relationship Specialty Start Date End Date Gianfranco Singh MD [address] [place] [address] PCP - General Internal Medicine 11/13/16 Farm Helper Relationship Specialty Start Date End Date Gianfranco Singh MD [address] [place] [address] PCP - General Internal Medicine 11/13/16 Farm Helper Relationship Specialty Start Date End Date Gianfranco Singh MD [address] [place] [address], [place] [address] PCP - General Internal Medicine 11/13/16 Farm Helper Relationship Specialty Start Date End Date Gianfranco Singh MD [address] [place] [address], [place] [address] PCP - General Internal Medicine 11/13/16 Farm Helper Relationship Specialty Start Date End Date Gianfranco Singh MD [address] [place] [address], [place] [address] PCP - General Internal Medicine 11/13/16 Farm Helper Relationship Specialty Start Date End Date Gianfranco Singh MD [address] [place] [address], [place] [address] PCP - General Internal Medicine 11/13/16 Farm Helper Relationship Specialty Start Date End Date Gianfranco Singh MD [address] [place] [address], [place] [address] PCP - General Internal Medicine 11/13/16 Farm Helper Relationship Specialty Start Date End Date Gianfranco iSngh MD [address] [place] [address], [place] [address] PCP - General Internal Medicine 11/13/16 Farm Helper Relationship Specialty Start Date End Date Gianfranco Singh MD [address] [place] [address], [place] [address] PCP - General Internal Medicine 11/13/16 Farm Helper Relationship Specialty Start Date End Date Gianfranco Singh MD [address] [place] [address] PCP - General Internal Medicine 11/13/16 Farm Helper Relationship Specialty Start Date End Date Gianfranco Singh MD [address] [place] [address], [place] [address] PCP - General Internal Medicine 11/13/16 Farm Helper Relationship Specialty Start Date End Date Gianfranco Singh MD [address] [place] [address], [place] [address] PCP - General Internal Medicine 11/13/16 Farm Helper Relationship Specialty Start Date End Date Gianfranco Singh MD [address] [place] [address], [place] [address] PCP - General Internal Medicine 11/13/16 Farm Helper Relationship Specialty Start Date End Date Gianfranco Singh MD [address] [place] [address], [place] [address] PCP - General Internal Medicine 11/13/16 Farm Helper Relationship Specialty Start Date End Date Gianfranco Singh MD [address] [place] [address], [place] [address] PCP - General Internal Medicine 11/13/16 Farm Helper Relationship Specialty Start Date End Date Gianfranco Singh MD [address] [place] [address], [place] [address] PCP - General Internal Medicine 11/13/16 Farm Helper Relationship Specialty Start Date End Date Gianfranco Singh MD [address] [place] [address], [place] [address] PCP - General Internal Medicine 11/13/16 Farm Helper Relationship Specialty Start Date End Date Gianfranco Singh MD [address] [place] [address], [place] [address] PCP - General Internal Medicine 11/13/16 Farm Helper Relationship Specialty Start Date End Date Gianfranco Singh MD [address] [place] [address] PCP - General Internal Medicine 11/13/16 Farm Helper Relationship Specialty Start Date End Date Gianfranco Singh MD [address] [place] [address] PCP - General Internal Medicine 11/13/16 Farm Helper Relationship Specialty Start Date End Date Gianfranco Singh MD [address] [place] [address] PCP - General Internal Medicine 11/13/16 Farm Helper Relationship Specialty Start Date End Date Gianfranco Singh MD [address] [place] [address] PCP - General Internal Medicine 11/13/16 Farm Helper Relationship Specialty Start Date End Date Gianfranco Singh MD [address] [place] [address] PCP - General Internal Medicine 11/13/16 Farm Helper Relationship Specialty Start Date End Date Gianfranco Singh MD [address] [place] [address] PCP - General Internal Medicine 11/13/16 Farm Helper Relationship Specialty Start Date End Date Gianfranco Singh MD [address] [place] [address] PCP - General Internal Medicine 11/13/16 Farm Helper Relationship Specialty Start Date End Date Gianfranco Singh MD [address] [place] [address] PCP - General Internal Medicine 11/13/16 Farm Helper Relationship Specialty Start Date End Date Gianfranco Singh MD [address] [place] [address] PCP - General Internal Medicine 11/13/16 Farm Helper Relationship Specialty Start Date End Date Gianfranco Singh MD [address] [place] [address] PCP - General Internal Medicine 11/13/16 Farm Helper Relationship Specialty Start Date End Date Gianfranco Singh MD [address] [place] [address] PCP - General Internal Medicine 11/13/16 Farm Helper Relationship Specialty Start Date End Date Gianfranco Singh MD [address] [place] [address] PCP - General Internal Medicine 11/13/16 Farm Helper Relationship Specialty Start Date End Date Gianfranco Singh MD [address] [place] [address] PCP - General Internal Medicine 11/13/16 FOR RECORDS PERTAINING TO PATIENTS WHO ARE OR HAVE BEEN ENROLLED IN A CHEMICAL DEPENDENCY/SUBSTANCEABUSE PROGRAM, SOME INFORMATION MAY BE OMITTED. This clinical summary was aggregated from multiple sources. Caution should be exercised in using it in the provision of clinical care. This summary normalizes information from multiple sources, and as a consequence, information in this document may materially change the coding, format and clinical context of patient data. In addition, data may be omitted in some cases. CLINICAL DECISIONS SHOULD BE BASED ON THE PRIMARY CLINICAL RECORDS. [facility] [employer] [facility]. provides no warranty or guarantee of the accuracy or completeness of information in this document.
--- NOTE | 2023-09-25 18:28 | EX.ED.DYSGE1 ---
HPI History of Present Illness Chief Complaint: Flank Pain Informant: patient Narrative Narrative: Patient is 63-year-old female with history of ankylosing spondylitis, diabetes mellitus, GERD and recent urinary tract infection (on day 3 of Bactrim) presenting with continued dysuria, hesitancy, hematuria and now right flank pain. She started having UTI symptoms about 3 weeks ago. Initially was on a course of antibiotics and was getting better but then started get worse again. She was switched to the Bactrim by her PCP and also given Zofran for nausea and vomiting 3 days ago. She denies any history of kidney stones. She is also been complaining of vague headache and dizziness. She states her immune system is terrible because of her ankylosing spondylitis but states that she is not on any immunosuppressants for this. She denies any recent steroid use. No other complaints or concerns verbalized at this time. Denies any change in her bowel movements. Chart review shows that patient was prescribed Bactrim on 09/22/2023 for 14 days. 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 Home Medications aspirin 81 mg chewable tablet 81 mg PO DAILY 08/10/16 [History Last Taken Unknown] gabapentin 300 mg capsule (Neurontin) 300 mg PO TID NEUROPATHY 08/10/16 [History Last Taken 10/14/19] metformin 1,000 mg tablet 500 mg PO BID DM 08/10/16 [History Last Taken 10/14/19] omeprazole 20 mg capsule,delayed release 20 mg PO DAILY 08/10/16 [History Last Taken 10/14/19] propranolol 40 mg tablet 40 mg PO TID HEART 08/10/16 [History Last Taken 10/14/19] Cholecalciferol (Vitamin D3) [Vitamin D3] 5,000 unit PO DAILY SUPPLEMENT 10/14/19 [History Last Taken 10/14/19] atorvastatin 10 mg tablet 10 mg PO DAILY CHOLESTEROL 10/14/19 [History Last Taken 10/14/19] clonazepam 2 mg tablet 2 mg PO BID 10/14/19 [History Last Taken 10/14/19] diclofenac sodium 75 mg tablet,delayed release 75 mg PO BIDCM PAIN 10/14/19 [History Last Taken 10/14/19] insulin aspar prot-insulin aspart 100 unit/mL (70-30) subcutaneous pen 12 units subcut DAILY DM 10/14/19 [History Last Taken 10/14/19] sulfamethoxazole 800 mg-trimethoprim 160 mg tablet 1 tab PO BID ANTIBIOTIC 10/14/19 [History Last Taken 10/14/19] venlafaxine 150 mg capsule,extended release 24 hr 150 mg PO BID DEPRESSION 10/14/19 [History Last Taken 10/14/19] prednisone 50 mg tablet 50 mg PO DAILY #5 tabs 07/14/22 [Rx Last Taken Unknown] phenazopyridine 200 mg tablet (Pyridium) 200 mg PO TID PRN pain 6 doses #6 tabs 09/25/23 [Rx Last Taken Unknown] Allergy/AdvReac Type Severity Reaction Status Date / Time Penicillins Allergy Hives Verified 09/25/23 15:50 hydrocodone AdvReac Nausea Verified 09/25/23 15:50 Surgical History History of hysterectomy Social History Smoking Status: Former smoker ROS ROS ED Constitutional Constitutional ED: Reports chills; Denies fever(s) Eyes Eyes: Denies change in vision ENT ENT ED: Denies rhinorrhea or sore throat Cardiovascular Cardiovascular: Denies chest pain Respiratory/Chest Respiratory/Chest: Denies cough Gastrointestinal Gastrointestinal: Reports abdominal pain and nausea; Denies constipation, diarrhea or vomiting Genitourinary Genitourinary ED: Reports dysuria, hematuria and urinary frequency Musculoskeletal Musculoskeletal: Reports back pain; Denies arthralgias or myalgias Integumentary Denies rash Neurologic Neurologic: Reports headache(s) EXAM Physical Exam Const Vital Signs: 09/25/23 15:49 09/25/23 17:57 09/25/23 17:48 Temperature 96.7 F L Temperature Source Temporal Pulse Rate 67 88 Respiratory Rate 14 16 Respiratory Effort Normal Respiratory Pattern Normal Blood Pressure 109/65 135/89 H Blood Pressure Mean 79 104 Pulse Ox 99 100 Oxygen Delivery Method Room Air Room Air 09/25/23 19:00 Temperature Temperature Source Pulse Rate 88 Respiratory Rate 14 Respiratory Effort Respiratory Pattern Blood Pressure 134/79 H Blood Pressure Mean 97 Pulse Ox 100 Oxygen Delivery Method Room Air Positive well nourished and well developed General Appearance ED: well developed and NAD HEENT Reports moist mucous membranes Eyes PERRL and EOMs intact bilaterally Neck supple Chest Wall inspection of chest normal Resp normal respiratory effort and clear to auscultation bilaterally Cardio regular rate, regular rhythm and no murmurs GI normal to inspection, nondistended, normoactive bowel sounds and non-tender Back/Spine General Back: CVA tenderness right Extremity normal to inspection General Extremety ED: Negative for edema General Extremity: Negative for edema Neuro oriented x3 Sensorium / Orientation: alert Motor Exam: Negative for general weakness Psych mental status grossly normal Skin no rashes or lesions noted and no wounds MDM MDM MDM Narrative Medical decision making narrative: patient presents for ongoining hematuria and now right flank pain. She is on day 3 of Bactrim. Patient is well-appearing. She does have some mild CVA tenderness. She is afebrile in the emergency room. Differential includes pyelonephritis, hemorrhagic cystitis, obstructive kidney stone and failure of outpatient treatment. Lab work including CBC and CMP largely normal. She is mildly hyperglycemic with a glucose of 206. Her kidney function is normal. Urinalysis shows 500 leukocyte esterase but negative nitrite, 25-50 white blood cells but only rare bacteria. CT is obtained to make sure there is no obstructive process and is negative for any acute process. Patient is given a dose of Toradol and fluids in the emergency room and on repeat evaluation is resting comfortably. I spoke with PCP on-call to confirm that patient's culture is in fact sensitive. He was able to check and patient had test positive for greater than 100,000 CFU's of Klebsiella that is in fact sensitive to Bactrim. The culture resulted yesterday. Given the patient does not have a leukocytosis, VAHID, obstructive uropathy and is on culture sensitive antibiotic I do not think she requires admission to the hospital. Will continue the Bactrim. Will start her on Pyridium to help her with her symptoms. Patient is agreeable this plan of care. Is given return precautions. Discharged home in stable condition. Lab Data Attestation: I reviewed the patient's lab results. Labs: Laboratory Results - last 24 hr 09/25/23 16:25 WBC 8.0 RBC 5.15 Hgb 13.4 Hct 42.4 MCV 82.3 MCH 26.0 L MCHC 31.6 L RDW Std Deviation 40.5 RDW Coeff of Clive 13.6 Plt Count 302 MPV 10.0 Immature Gran % (Auto) 0.500 Neut % (Auto) 70.1 H Lymph % (Auto) 15.3 L [place] % (Auto) 7.4 Eos % (Auto) 5.7 H Baso % (Auto) 1.0 Absolute Neuts (auto) 5.6 Absolute Lymphs (auto) 1.22 Nucleated RBC % 0 Sodium 134 L Potassium 5.3 H Chloride 103 Carbon Dioxide 25.0 Anion Gap 6 BUN 13 Creatinine 0.97 Estim Creat Clear Calc 68.26 Est GFR (MDRD) Af Amer 75 Est GFR (MDRD) Non-Af 62 BUN/Creatinine Ratio 13.4 Glucose 206 H Calcium 9.4 Total Bilirubin 0.50 AST 14 L ALT 19 Alkaline Phosphatase 148 H Total Protein 8.0 Albumin 4.0 Globulin 4.0 Albumin/Globulin Ratio 1.0 Urine Color Yellow Urine Clarity Sl. Cloudy Urine pH 5.0 Ur Specific [place] 1.020 Urine Protein 30 H Urine Glucose (UA) Normal Urine Ketones 5 H Urine Occult Blood 150 H Urine Nitrite Negative Urine Bilirubin 3 H Urine Urobilinogen 1 H Ur Leukocyte Esterase 500 H Urine RBC 0-5 SEEN Urine WBC 25-50 SEEN Ur Squamous Epith Cells 0-5 SEEN Urine Bacteria RARE Urine Mucus 0 SEEN Radiography Diagnostic Testing: Clinical Impression(s) from Imaging Studies Abdomen/Pelvis CT 09/25/23 17:55 IMPRESSION: Normal unenhanced CT of the abdomen and pelvis. Electronically Signed: Hank Osborne MD at 19:11 EST , Management Discussion w/another healthcare provider: PCP Discharge Plan Triage Chief Complaint: Flank Pain Other Complaint: Weakness ED Provider: Sunshine Inman Dx/Rx/DC Orders Clinical Impression: Acute right flank pain, UTI due to Klebsiella species Instructions: ED Hematuria, ED Pyelonephritis, Female (Adult) Prescriptions: New phenazopyridine [Pyridium] 200 mg tablet 200 mg PO TID PRN (Reason: pain) Qty: 6 0RF No Action propranolol 40 MG tablet 40 mg PO TID metformin 1,000 MG tablet 500 mg PO BID gabapentin [Neurontin] 300 MG capsule 300 mg PO TID omeprazole 20 MG capsule 20 mg PO DAILY aspirin 81 MG tablet,chewable 81 mg PO DAILY clonazepam 2 MG tablet 2 mg PO BID atorvastatin 10 MG tablet 10 mg PO DAILY Cholecalciferol (Vitamin D3) [Vitamin D3] 5,000 UNIT capsule 5,000 unit PO DAILY diclofenac sodium 75 MG tablet 75 mg PO BIDCM insulin asp prt-insulin aspart 100 UNITS/ML insulin pen 12 units subcut DAILY venlafaxine 150 MG capsule 150 mg PO BID sulfamethoxazole-trimethoprim 1 TABLET tablet 1 tab PO BID prednisone 50 mg tablet 50 mg PO DAILY Qty: 5 0RF Primary Care Provider: Lindsey Hauser Referrals: Lindsey Hauser MD [Primary Care Provider] - Activity Restrictions/Additional Instructions: Your lab work was very reassuring today. Your CT did not show any acute abnormality or kidney stone. Please continue to take the antibiotics as prescribed for the entire course. You have also been prescribed Pyridium to help with the pain associated with this bladder infection. Please continue to follow-up outpatient with your primary care doctor. If you develop fever or worsening symptoms please return to the emergency room. Disposition Disposition: Home, Self Care
[2023-09-25] MEDS: 0.9% Normal Saline (1000mL) 1,000 ML 999 ML IV (18:31)
[2023-09-25] MEDS: Ondansetron 4 MG/2 ML Vial IV (18:31)
[2023-09-25] MEDS: Ketorolac 15 MG/ML Vial IV (18:31)
[2023-09-25 19:00] VITALS: BP 134/79; PULSE 88; RESP 14; O2SAT 100
--- NOTE | 2023-09-25 19:30 | ED.RN ---
1930: I gave patient a [facility] behavior health pamphlet with a crisis number. See mental health documentation in worklist.
[2023-09-25 21:14] VITALS: BP 134/66; BP 137/64; PULSE 78; RESP 16; TEMP 36.4; O2SAT 98
== END 2023-09-25 21:27 | disposition home or self-care (01) ==
PROVIDERS: Emergency Provider Emergency Medicine; PCP Internal Medicine; Visit Provider Emergency Medicine
DX: N39.0 Urinary tract infection, site not specified (principal); J44.9 Chronic obstructive pulmonary disease, unspecified; Z79.4 Long term (current) use of insulin; E11.9 Type 2 diabetes mellitus without complications; Z87.891 Personal history of nicotine dependence; B96.1 Klebsiella pneumoniae [K. pneumoniae] as the cause of diseases classified elsewhere; R53.1 Weakness; R10.9 Unspecified abdominal pain; Z79.84 Long term (current) use of oral hypoglycemic drugs; Z79.899 Other long term (current) drug therapy; F32.A Depression, unspecified
CPT/HCPCS: 74176; 80053; 81001; 85025; 87086; 96361; 96374; 96375; 99284; J2405

== ENCOUNTER 2024-07-27 13:29 | Emergency (ER) | payer MEDICARE, MEDICAID, SELFPAY ==
[2024-07-27 13:33] VITALS: BP 134/75; PULSE 69; RESP 18; TEMP 35.7; O2SAT 100; BMI 27.0
--- NOTE | 2024-07-27 13:50 | EDS_ITS ---
HPI History of Present Illness Chief Complaint: Dizziness Detail of Chief Complaint: Anxiety. Informant: patient Onset/Context/Timing Onset: Today Current Severity: Mild Maximum Severity: Mild Narrative Narrative: 64-year-old female history of insulin-dependent diabetes takes insulin. Also has a history of anxiety and agoraphobia. Takes Ativan 1 mg twice a day. She has been out since last week. States that this morning she took her insulin. She felt anxious thought was secondary not having her Ativan and think she may have taken a second dose of insulin is worried her blood sugar was going to drop. It was 60 earlier today. Denies recent illness other than some loose stools and some mild nausea. Denies vomiting or fever. No dysuria. Prior similar symptoms: Yes Recent Illness/Hospitalization: No [facility] Medical History Abnormal Pap smear of cervix Mitral valve disorder History of tobacco abuse Diabetes Depression COPD (chronic obstructive pulmonary disease) HPV (human papilloma virus) infection Bipolar disorder Ankylosing spondylitis History of alcohol abuse Home Medications ?Medication ?Instructions ?Recorded ?Last Taken ?Type aspirin 81 mg chewable tablet 81 mg PO DAILY 08/10/16 Unknown History gabapentin 300 mg capsule 300 mg PO TID NEUROPATHY 08/10/16 10/14/19 History (Neurontin) metformin 1,000 mg tablet 500 mg PO BID DM 08/10/16 10/14/19 History omeprazole 20 mg capsule,delayed 20 mg PO DAILY 08/10/16 10/14/19 History release propranolol 40 mg tablet 40 mg PO TID HEART 08/10/16 10/14/19 History Cholecalciferol (Vitamin D3) 5,000 unit PO DAILY SUPPLEMENT 10/14/19 10/14/19 History [Vitamin D3] atorvastatin 10 mg tablet 10 mg PO DAILY CHOLESTEROL 10/14/19 10/14/19 History clonazepam 2 mg tablet 2 mg PO BID 10/14/19 10/14/19 History diclofenac sodium 75 mg 75 mg PO BIDCM PAIN 10/14/19 10/14/19 History tablet,delayed release insulin aspar prot-insulin aspart 12 units subcut DAILY DM 10/14/19 10/14/19 History 100 unit/mL (70-30) subcutaneous pen sulfamethoxazole 800 1 tab PO BID ANTIBIOTIC 10/14/19 10/14/19 History mg-trimethoprim 160 mg tablet venlafaxine 150 mg 150 mg PO BID DEPRESSION 10/14/19 10/14/19 History capsule,extended release 24 hr prednisone 50 mg tablet 50 mg PO DAILY #5 tabs 07/14/22 Unknown Rx phenazopyridine 200 mg tablet 200 mg PO TID PRN pain 6 doses #6 09/25/23 Unknown Rx (Pyridium) tabs Allergy/AdvReac Type Severity Reaction Status Date / Time Penicillins Allergy Hives Verified 09/25/23 15:50 hydrocodone AdvReac Nausea Verified 09/25/23 15:50 Surgical History History of hysterectomy Social History Smoking Status: Former smoker ROS ROS ED ROS Narrative Loose stools. Nausea. Constitutional Constitutional ED: Denies chills or fever(s) Eyes Eyes: Denies blurry vision ENT ENT ED: Denies ear pain, rhinorrhea or sore throat Cardiovascular Cardiovascular: Denies chest pain Respiratory/Chest Respiratory/Chest: Denies cough or dyspnea Gastrointestinal Gastrointestinal: Reports diarrhea and nausea; Denies abdominal pain, constipation, melena or vomiting Genitourinary Genitourinary ED: Denies dysuria or hematuria Musculoskeletal Musculoskeletal: Denies arthralgias or back pain Integumentary Denies abscess or Abrasions Neurologic Neurologic: Denies headache(s), paresthesias or weakness Psychiatric Psychiatric: Denies anxiety, depression or suicidal ideation Endocrine Endocrinology: Denies cold intolerance Hematologic/Lymphatic Hematologic/Lymphatic: Reports none Allergic/Immunologic Allergic/Immunologic ED: Denies mouth swelling, tongue swelling or urticaria EXAM Physical Exam Narrative Exam Narrative: 64-year-old female no acute distress vital signs are stable. She is afebrile. Her pulse ox 100% on room air. H EENT pupils are round react light. Moist mucous membranes. Neck nontender. Lungs clear. Heart regular rhythm no murmur. Rate about 70. Chest wall and ribs nontender. Abdomen soft nontender. Moving all 4 extremities. Nontender no edema. Neurologically the patient is awake and alert. Answer questions following commands. Back nontender. She is emotionally anxious. Const Vital Signs: 07/27/24 13:33 07/27/24 14:02 Temperature 96.2 F L 98.1 F Temperature Source Temporal Oral Pulse Rate 69 66 Respiratory Rate 18 12 Blood Pressure 134/75 H 119/69 Blood Pressure Mean 94 85 Pulse Ox 100 99 Oxygen Delivery Method Room Air Room Air Positive well nourished and well developed; Negative for cachectic, contractures or unkempt General Appearance ED: well developed and NAD; Negative for unkempt, cachectic, contractures, cyanotic, diaphoretic or pallor Nutritional Appearance: Negative for cachectic HEENT Reports moist mucous membranes Negative for trauma or tenderness Eyes PERRL and EOMs intact bilaterally General Eye ED: Negative for pale conjunctiva or scleral icterus Neck no lymphadenopathy, supple and no JVD Chest Wall inspection of chest normal and palpation of chest normal Resp normal respiratory effort and clear to auscultation bilaterally Effort and Inspection: Negative for retractions Auscultation: Negative for rales, rhonchi, wheezes or diminished lung sounds Cardio regular rhythm, S1 normal heart sound, S2 normal heart sound and no murmurs GI normal to inspection, nondistended, normoactive bowel sounds, non-tender, non- distended and no masses Auscultation: normoactive bowel sounds Palpation: soft; Negative for tender, guarding or rebound tenderness present Back/Spine no CVA tenderness General Back: Negative for CVA tenderness Cervical Spine: Negative for cervical spine tenderness Thoracic Spine / Upper Back: Negative for thoracic spinal tenderness or paraspinal muscle tenderness Lumbar Spine / Lower Back: Negative for lumbar spinal tenderness Extremity normal to inspection General Extremety ED: Negative for edema or tenderness General Extremity: Negative for edema Neuro CN's II-XII intact bilaterally and no sensory deficits noted Sensorium / Orientation: alert Motor Exam: strength 5/5 throughout Psych Negative for mental status grossly normal Appearance: Negative for unkempt Attitude: No agitated Mood & Affect: anxious; Negative for depressed or tearful Skin no rashes or lesions noted, no wounds and skin turgor normal General Skin Exam: Negative for jaundice or pallor Lesions: No lesion noted Rashes: No rashes noted Trauma: Negative for abrasion Wounds: Negative for wounds noted MDM MDM MDM Narrative Medical decision making narrative: 64-year-old female had a hypoglycemic episode today with a blood sugar 60. Said she got anxious because she has been off her Ativan. She may have actually taken a second dose of insulin after it was already low. She will be monitored. Screening lab. BGT. She will be given a dose of Ativan to that she has been out of the last several days and appears anxious. Repeat exam at 3 PM patient doing well. Awake and alert. Feels better. Her most recent blood sugar was 158. Will be rechecked prior to discharge. She has been feels better after the Ativan. She has been out of the Ativan but has a prescription at the pharmacy that is ready she just needs to pick it up. Will recheck her blood sugar and should be discharged to home as well as that is doing okay. History & Record Review Discussion w/independent historian: Patient Additional record(s) reviewed:: Prior inpatient record, Prior outpatient record, Prior ED visit and Prior labs Lab Data Attestation: I reviewed the patient's lab results. Lab results narrative: CBC normal. White count 8. H&H 12.9 and 38.5. Platelets 313. Electrolytes show a gap of 8. Normal BUN of 14 creatinine 0.76. Glucose 126. Labs: Laboratory Results - last 24 hr 07/27/24 07/27/24 13:10 13:38 WBC 8.3 RBC 4.83 Hgb 12.9 Hct 38.5 MCV 79.7 L MCH 26.7 L MCHC 33.5 RDW Std Deviation 39.3 RDW Coeff of Clive 13.6 Plt Count 313 MPV 10.4 Immature Gran % (Auto) 0.200 Neut % (Auto) 53.6 Lymph % (Auto) 35.2 [place] % (Auto) 8.5 Eos % (Auto) 1.7 Baso % (Auto) 0.8 Absolute Neuts (auto) 4.5 Absolute Lymphs (auto) 2.93 Nucleated RBC % 0 Sodium 136 Potassium 3.8 Chloride 104 Carbon Dioxide 25.0 Anion Gap 8 BUN 14 Creatinine 0.76 Estim Creat Clear Calc 84.42 Est GFR (MDRD) Af Amer 99 Est GFR (MDRD) Non-Af 82 BUN/Creatinine Ratio 18.4 Glucose 126 H Calcium 9.3 POC Glucose 153 H Discharge Plan Triage Chief Complaint: Dizziness ED Provider: Dae Ramos Dx/Rx/DC Orders Clinical Impression: Anxiety, Diabetes, Hypoglycemia, Has run out of medications Instructions: Hypoglycemia (Low Blood Sugar), ED Anxiety Reaction Prescriptions: No Action propranolol 40 MG tablet 40 mg PO TID metformin 1,000 MG tablet 500 mg PO BID gabapentin [Neurontin] 300 MG capsule 300 mg PO TID omeprazole 20 MG capsule 20 mg PO DAILY aspirin 81 MG tablet,chewable 81 mg PO DAILY clonazepam 2 MG tablet 2 mg PO BID atorvastatin 10 MG tablet 10 mg PO DAILY Cholecalciferol (Vitamin D3) [Vitamin D3] 5,000 UNIT capsule 5,000 unit PO DAILY diclofenac sodium 75 MG tablet 75 mg PO BIDCM insulin asp prt-insulin aspart 100 UNITS/ML insulin pen 12 units subcut DAILY venlafaxine 150 MG capsule 150 mg PO BID sulfamethoxazole-trimethoprim 1 TABLET tablet 1 tab PO BID prednisone 50 mg tablet 50 mg PO DAILY Qty: 5 0RF phenazopyridine [Pyridium] 200 mg tablet 200 mg PO TID PRN (Reason: pain) Qty: 6 0RF Primary Care Provider: Lindsey Hauser Referrals: Lindsey Hauser MD [Primary Care Provider] - As Needed Activity Restrictions/Additional Instructions: I think today was secondary to both her anxiety and her low blood sugar. Watch her blood sugars closely the next 24 hours. Make sure you eat a snack tonight before you go to bed and check your blood sugar before you go to bed. Make sure you citrus picker your anxiety medication your Ativan at the pharmacy that you are physician had written for you. Follow-up with your doctor as needed. Return if worse. Print Language: Yakut Disposition Disposition: Home, Self Care
[2024-07-27 13:58] LABS: Bedside Glucose 153 mg/dL (74-106)
[2024-07-27] MEDS: LORazepam 1 MG Tablet PO (13:59)
[2024-07-27 14:02] VITALS: BP 119/69; PULSE 66; RESP 12; TEMP 36.7; O2SAT 99
[2024-07-27 14:21] LABS: Anion Gap 8 (5-15); BUN 14 mg/dL (7-18); BUN/Creat Ratio 18.4 RATIO (10-20); Calcium,Total 9.3 mg/dL (8.5-10.1); Chloride 104 mmol/L (98-107); Creatinine, Serum 0.76 mg/dL (0.55-1.02); EST Glomerular Filtration Rate 82 mL/min (>60); Est Glom Filt Rate - Afr Amer 99 mL/min (>60); Estimated Creatinine Clearance 84.42 ml/min; Glucose 126 mg/dL (74-106); Potassium 3.8 mmol/L (3.5-5.1); Sodium Level 136 mmol/L (136-145)
[2024-07-27 14:23] LABS: Absolute Lymphocyte Count 2.93 X10^3/uL (0.83-4.51); Absolute Neutrophil Count 4.5 X10^3/uL (2.0-7.7); Basophil# 0.07 X10^3/uL; Basophil% 0.8 % (0-1); Eosinophil# 0.14 X10^3/uL; Eosinophils% 1.7 % (0-5); Hematocrit 38.5 % (37-47); Hemoglobin 12.9 g/dL (12.0-15.0); Lymphocyte # 2.93 X10^3/ul (0.83-4.51); Lymphocyte % 35.2 % (19-41); Mean Corp Hgb Conc 33.5 g/dL (32-36); Mean Corpuscular Hgb 26.7 pg (27.0-32.0); Mean Corpuscular Volume 79.7 fL (81-99); Mean Platelet Vol. 10.4 fl (6.2-12.0); Monocyte# 0.71 X10^3/uL; Monocyte% 8.5 % (0-10); NRBC Flagged by Analyzer 0 % (0-5); Neutrophil # 4.45 X10^3/uL (2.7-7.7); Neutrophil % 53.6 % (47-70); Platelet Count 313 K/mm3 (150-450); RBC Distribution Width CV 13.6 % (11.6-14.6); RBC Distribution Width SD 39.3 fl (35.1-43.9); Red Blood Count 4.83 M/mm3 (4.2-5.4); White Blood Count 8.3 K/mm3 (4.4-11.0)
--- NOTE | 2024-07-27 15:13 | ED.RN ---
pt. given turkey sandwich, sprite and cookies
[2024-07-27 15:15] VITALS: BP 132/76; PULSE 79; RESP 16; TEMP 36.9; O2SAT 100
== END 2024-07-27 15:16 | disposition home or self-care (01) ==
PROVIDERS: Emergency Provider Emergency Medicine; PCP Internal Medicine; Visit Provider Emergency Medicine
DX: F41.9 Anxiety disorder, unspecified (principal); F31.9 Bipolar disorder, unspecified; J44.9 Chronic obstructive pulmonary disease, unspecified; E11.649 Type 2 diabetes mellitus with hypoglycemia without coma; Z79.4 Long term (current) use of insulin; Z87.891 Personal history of nicotine dependence; Z90.710 Acquired absence of both cervix and uterus; R42 Dizziness and giddiness; Z79.82 Long term (current) use of aspirin
CPT/HCPCS: 80048; 82962; 85025; 99285